=== PATIENT | female | born 1955 | race Caucasian/White ===

== ENCOUNTER 2018-05-07 10:32 | Inpatient (IN) ==
[~2018-05-07 10:32] MED LIST: Aminoglycoside Consult 1 EACH MC ONE
[2018-05-07] MEDS ORDERED: *HR* HYDROmorphone (PF) 1 MG/ML SYRINGE IM ONE (10:39)
--- NOTE | 2018-05-07 10:47 | Emergency Department Note ---
Disposition Clinical Impression: Lumbar radiculopathy Disposition: Admitted As Inpatient Condition: Good Back Pain HPI - General Stated Complaint: back pain Time Seen by Provider: 05/07/18 10:39 Source: EMS Mode of arrival: EMS Limitations: no limitations Nursing Notes Reviewed: Yes Vital Signs Reviewed: Yes - History of Present Illness HPI Narrative: Patient presents to the ED via EMS with the chief complaint of neck and back pain. Patient is coming over from her primary care physician's office. She reports that over the last 3 weeks she has had gradually increasing and worsening diffuse back pain. She has been treated with baclofen for spasms in her neck, which been ongoing for several years. She also has a history of fib romyalgia and so he is depression. She states that "ever since that cold day" about 3 weeks ago. She has been having this worsening back pain. She states that she literally hurts everywhere. She does report that she was incontinent of urine. Associated with the pain. Hurts to bend and move. She denies any fever or chills. She also complains of right arm weakness, but she states this is from her shoulder hurting. She also complains of some intermittent abdominal pain and nausea but no vomiting. Denies any rashes. Does state that her gait has been off. - Related Data Home Medications Medication Instructions Recorded Confirmed Acetaminophen [Tylenol Arthritis] 650 mg PO Q8H PRN 05/07/18 05/07/18 Mirtazapine [Remeron] 15 mg PO HS 05/07/18 05/07/18 Pravastatin Sodium [Pravachol] 40 mg PO HS 05/07/18 05/07/18 RX: Cholecalciferol (D-3) [Vitamin 1,000 unit PO DAILY 05/07/18 05/07/18 D] RX: Lisinopril-HCTZ 20-12.5 1 each PO DAILY 05/07/18 05/07/18 [Prinzide 20-12.5] RX: Pantoprazole Sodium 40 mg PO DAILY 05/07/18 05/07/18 RX: Tizanidine HCl 4 mg PO Q8H PRN 05/07/18 05/07/18 Vitamin B Complex [B Complex] 1 each PO DAILY 05/07/18 05/07/18 glipiZIDE [Glucotrol] 5 mg PO 1200 05/07/18 05/07/18 Allergies Allergy/AdvReac Type Severity Reaction Status Date / Time aspirin Allergy Gastrointestinal Verified 05/13/17 16:28 Upset Ether Allergy See Verified 05/13/17 16:26 Comments NSAIDS (Non-Steroidal Allergy Gastrointestinal Verified 05/13/17 16:28 Anti-Inflamma Upset ondansetron Allergy Hallucinati Verified 05/13/17 16:28 [From Zofran (as ng hydrochloride)] Penicillins [PCN] Allergy Rash Verified 05/13/17 16:26 pioglitazone [From Actos] Allergy Hives Verified 05/13/17 16:27 Review of Systems: As reviewed in the HPI. All other systems reviewed are negative or normal. Past Medical History - Past Medical History Attestation: Yes The following information was validated with the patient. Source: patient Medical history: Reports: diabetes, GERD, hyperlipidemia, hypertension Surgical history: Reports: other (right foot surgeries) - Social History Smoking Status: Never smoker Smokeless Tobacco Status: No Alcohol use: Reports: none Physical Exam CONSTITUTIONAL: [well appearing, alert and in no acute distress] EYES: [EOMI, clear conjunctiva, PERRLA] HENT: [Normocephalic, atraumatic, moist mucus membranes, normal oropharynx] NECK: [normal inspection, full ROM with slight head forward posture, trachea midline, no obvious swelling, positive midline tenderness with associated paraspinous muscle spasm, worse on the right] PULMONARY: [normal lung sounds bilaterally, normal chest rise and fall, no respiratory distress or stridor, no wheezes, no rales, no rhonchi CARDIOVASCULAR: [regular rate, regular rhythm, normal heart sounds, no murmurs, distal extremities are warm and well perfused] GASTROINSTESTINAL: [soft, non-tender, non-rigid, non-distended, no guarding, no rebound, normal bowel sounds] GENITOURINARY/RECTAL: [deferred] NEUROLOGIC: [Alert, oriented x3, normal speech, moves all extremities. RUE - 4/5, LUE 5/5, RLE - 4/5, LLE - 4/5. Normal sensation throughout. patient unable to ambulate on own, does seem unsteady on feet] EXTREMITIES: [No gross deformities, she does have some tenderness along the right clavicle, patient has hyperesthesia MUSCULOSKELETAL: [no gross deformities, atraumatic] SKIN: [No cyanosis, no diaphoresis, normal color, warm, no rash] PSYCHIATRIC: [anxious] Course - Reevaluation(s) Reevaluation #1: MRI shows severe spinal stenosis with mass effect on the cauda equina at L4-L5. Spoke with on-call surgeon, Dr. Bales. Was agreeable with admission hospital and consultation for possible epidural injections versus decompression. Vital Signs Temperature 100.0 F H 05/07/18 10:43 Pulse Rate 104 05/07/18 10:43 Respiratory Rate 20 05/07/18 10:43 Blood Pressure 190/75 05/07/18 10:43 O2 Sat by Pulse Oximetry 100 05/07/18 10:43 Temperature 100.0 F H 05/07/18 11:38 Pulse Rate 104 05/07/18 11:38 Respiratory Rate 20 05/07/18 11:38 Blood Pressure 190/75 05/07/18 11:38 O2 Sat by Pulse Oximetry 100 05/07/18 11:38 Oxygen Delivery Oxygen Delivery Room Air Back Pain/Injury - Medical Records Medical records reviewed: Yes I reviewed the patient's medical records. - Lab Data Lab results reviewed: Yes I reviewed the patient's lab results. Result diagrams: 05/07/18 11:15 05/07/18 17:57 Lab Results 05/07/18 05/07/18 05/07/18 Range/Units 11:15 11:15 11:15 WBC 15.8 H (4.3-11.1) K/mcL RBC 2.98 L (3.82-4.97) M/mcL Hgb 8.1 L (11.5-15.4) g/dL Hct 24.8 L (35.3-44.9) % MCV 83.2 (83.0-100.0) fL MCH 27.2 L (28.0-33.3) pg MCHC 32.7 (31.6-35.5) g/dL RDW 13.2 (11.5-14.5) % Plt Count 599 H (140-400) K/mcL MPV 9.8 (9.4-12.4) fL Immature Gran % 0.6 (0-4) % Seg Neutrophils % 87.9 % Lymphocytes % 5.5 % Monocytes % 5.8 % Eosinophils % 0.0 % Basophils % 0.2 % Neutrophils # 13.9 H (1.6-8.9) K/mcL Lymphocytes # 0.9 (0.6-4.6) K/mcL Monocytes # 0.9 (0.0-1.3) K/mcL Eosinophils # 0.0 (0.0-0.6) K/mcL Basophils # 0.0 (0.0-0.2) K/mcL ESR >= 130 H (0-15) mm/hr Sodium 130 L (136-145) mEq/L Potassium 3.7 (3.5-5.1) mEq/L Chloride 95 L (98-107) mEq/L Carbon Dioxide 22 L (23-29) mEq/L BUN 22 (8-23) mg/dL Creatinine 0.77 (0.60-1.20) mg/dL Est GFR ( Amer) > 60 (> 60) Est GFR (Non-Af Amer) > 60 (> 60) BUN/Creatinine Ratio 29 H (6-26) Glucose 311 H (70-105) mg/dL Calculated Osmolality 285 (280-300) Calcium 9.4 (8.6-10.3) mg/dL C-Reactive Protein (Less than 10) mg/L Urine Color (Yellow) Urine Clarity (Clear) Urine pH (5.0-8.0) pH Units Ur Specific [place] (1.010-1.025) Urine Protein (Neg-Trace) mg/dL Urine Glucose (UA) (Normal) mg/dL Urine Ketones (Negative) mg/dL Urine Blood (Negative) Urine Nitrite (Negative) Urine Bilirubin (Negative) Urine Urobilinogen (Normal) mg/dL Ur Leukocyte Esterase (Negative) Urine Microscopic RBC (0-3) per hpf Urine Microscopic WBC (0-3) per hpf Ur Squamous Epith Cells (None-Few) per lpf Urine Bacteria (None-Few) per hpf Hyaline Casts (None-Few) per lpf Ur Culture Indicated? (NO) 05/07/18 05/07/18 Range/Units 11:15 11:34 WBC (4.3-11.1) K/mcL RBC (3.82-4.97) M/mcL Hgb (11.5-15.4) g/dL Hct (35.3-44.9) % MCV (83.0-100.0) fL MCH (28.0-33.3) pg MCHC (31.6-35.5) g/dL RDW (11.5-14.5) % Plt Count (140-400) K/mcL MPV (9.4-12.4) fL Immature Gran % (0-4) % Seg Neutrophils % % Lymphocytes % % Monocytes % % Eosinophils % % Basophils % % Neutrophils # (1.6-8.9) K/mcL Lymphocytes # (0.6-4.6) K/mcL Monocytes # (0.0-1.3) K/mcL Eosinophils # (0.0-0.6) K/mcL Basophils # (0.0-0.2) K/mcL ESR (0-15) mm/hr Sodium (136-145) mEq/L Potassium (3.5-5.1) mEq/L Chloride (98-107) mEq/L Carbon Dioxide (23-29) mEq/L BUN (8-23) mg/dL Creatinine (0.60-1.20) mg/dL Est GFR ( Amer) (> 60) Est GFR (Non-Af Amer) (> 60) BUN/Creatinine Ratio (6-26) Glucose (70-105) mg/dL Calculated Osmolality (280-300) Calcium (8.6-10.3) mg/dL C-Reactive Protein 172 H (Less than 10) mg/L Urine Color Yellow (Yellow) Urine Clarity Clear (Clear) Urine pH 6.0 (5.0-8.0) pH Units Ur Specific [place] 1.030 H (1.010-1.025) Urine Protein 30 H (Neg-Trace) mg/dL Urine Glucose (UA) 500 H (Normal) mg/dL Urine Ketones 40 H (Negative) mg/dL Urine Blood Negative (Negative) Urine Nitrite Negative (Negative) Urine Bilirubin Negative (Negative) Urine Urobilinogen Normal (Normal) mg/dL Ur Leukocyte Esterase Negative (Negative) Urine Microscopic RBC 0-3 (0-3) per hpf Urine Microscopic WBC 5-15 H (0-3) per hpf Ur Squamous Epith Cells Many H (None-Few) per lpf Urine Bacteria None Seen (None-Few) per hpf Hyaline Casts None Seen (None-Few) per lpf Ur Culture Indicated? NO (NO) - Radiology Data Radiology results reviewed: Yes I reviewed the patient's radiology results. - EKG Data EKG attestation: Yes I reviewed and interpreted this EKG. EKG results narrative: Sinus tach, rate 102, normal axis, no ischemic change
--- NOTE | 2018-05-07 10:48 | Emergency Department Note ---
Disposition Clinical Impression: Lumbar radiculopathy Disposition: Admitted As Inpatient Condition: Good General Adult HPI - General Stated complaint: back pain Time Seen by Provider: 05/07/18 10:39 Nursing Notes Reviewed: Yes Vital Signs Reviewed: Yes - Related Data Home Medications Medication Instructions Recorded Confirmed Acetaminophen [Tylenol Arthritis] 650 mg PO Q8H PRN 05/07/18 05/07/18 Mirtazapine [Remeron] 15 mg PO HS 05/07/18 05/07/18 Pravastatin Sodium [Pravachol] 40 mg PO HS 05/07/18 05/07/18 RX: Cholecalciferol (D-3) [Vitamin 1,000 unit PO DAILY 05/07/18 05/07/18 D] RX: Lisinopril-HCTZ 20-12.5 1 each PO DAILY 05/07/18 05/07/18 [Prinzide 20-12.5] RX: Pantoprazole Sodium 40 mg PO DAILY 05/07/18 05/07/18 RX: Tizanidine HCl 4 mg PO Q8H PRN 05/07/18 05/07/18 Vitamin B Complex [B Complex] 1 each PO DAILY 05/07/18 05/07/18 glipiZIDE [Glucotrol] 5 mg PO 1200 05/07/18 05/07/18 Allergies Allergy/AdvReac Type Severity Reaction Status Date / Time aspirin Allergy Gastrointestinal Verified 05/13/17 16:28 Upset Ether Allergy See Verified 05/13/17 16:26 Comments NSAIDS (Non-Steroidal Allergy Gastrointestinal Verified 05/13/17 16:28 Anti-Inflamma Upset ondansetron Allergy Hallucinati Verified 05/13/17 16:28 [From Zofran (as ng hydrochloride)] Penicillins [PCN] Allergy Rash Verified 05/13/17 16:26 pioglitazone [From Actos] Allergy Hives Verified 05/13/17 16:27 Past Medical History - Past Medical History Medical history: Reports: diabetes, GERD, hyperlipidemia, hypertension Surgical history: Reports: other (right foot surgeries) - Social History Smoking Status: Never smoker Smokeless Tobacco Status: No Alcohol use: Reports: none Course Vital Signs Temperature 100.0 F H 05/07/18 10:43 Pulse Rate 104 05/07/18 10:43 Respiratory Rate 20 05/07/18 10:43 Blood Pressure 190/75 05/07/18 10:43 O2 Sat by Pulse Oximetry 100 05/07/18 10:43 Temperature 98.9 F 05/07/18 20:35 Pulse Rate 104 05/07/18 20:35 Respiratory Rate 22 05/07/18 20:35 Blood Pressure 160/73 05/07/18 20:35 O2 Sat by Pulse Oximetry 98 05/07/18 20:35 Oxygen Delivery Oxygen Delivery Room Air Medical Decision Making - [facility] Narrative Medical decision making narrative: Thoracic Spine MRI 05/07/18 00:00 IMPRESSION: Small to moderate broad-based right paracentral disc protrusion at T10-11. No cord compression or stenosis is identified. No evidence of acute fracture or abnormal enhancement within the thoracic spine. D/ / 05/07/2018 14:30:47 Pepe Giron MD / wilman Interpreting Provider: Pepe Giron MD Lumbar Spine MRI 05/07/18 10:40 IMPRESSION: Severe spinal canal stenosis at L4-5 with mass effect on the cauda equina. This is secondary to grade 1 anterolisthesis, facet degenerative changes, and disc osteophyte complex. There is endplate edema at this level, likely degenerative in nature with associated enhancement. Clinical correlation with symptoms of cauda equina syndrome is recommended. Multiple levels of endplate edema throughout the lumbar spine, without evidence of endplate destruction, or fluid signal within the disc space. There is associated enhancement. These are favored to represent degenerative edema enhancement. Clinical correlation with less likely possibility of early discitis or osteomyelitis should be considered. Diffusely T1 hypointense marrow signal. Differential includes marrow involving or marrow replacing processes. D/ / 05/07/2018 14:27:34 Steffen Roman MD / wilman Interpreting Provider: Steffen Roman MD Head CT 05/07/18 10:41 IMPRESSION: No acute intracranial abnormality. D/ / Mark Rodriguez MD / Mark Rodriguez MD Interpreting Provider: Mark Rodriguez MD Chest X-Ray 02/25/19 10:47 IMPRESSION: 1. No active pulmonary disease. D/ / Kurt Gurrola MD / Kurt Gurrola MD Interpreting Provider: Kurt Gurrola MD 1445 hrs.: After the results of or MR. We spoke with Dr. Bales who is on for spine and will admit with them consulting. - Lab Data Result diagrams: 05/07/18 11:15 05/07/18 17:57 Lab Results 05/07/18 05/07/18 05/07/18 Range/Units 11:15 11:15 11:15 WBC 15.8 H (4.3-11.1) K/mcL RBC 2.98 L (3.82-4.97) M/mcL Hgb 8.1 L (11.5-15.4) g/dL Hct 24.8 L (35.3-44.9) % MCV 83.2 (83.0-100.0) fL MCH 27.2 L (28.0-33.3) pg MCHC 32.7 (31.6-35.5) g/dL RDW 13.2 (11.5-14.5) % Plt Count 599 H (140-400) K/mcL MPV 9.8 (9.4-12.4) fL Immature Gran % 0.6 (0-4) % Seg Neutrophils % 87.9 % Lymphocytes % 5.5 % Monocytes % 5.8 % Eosinophils % 0.0 % Basophils % 0.2 % Neutrophils # 13.9 H (1.6-8.9) K/mcL Lymphocytes # 0.9 (0.6-4.6) K/mcL Monocytes # 0.9 (0.0-1.3) K/mcL Eosinophils # 0.0 (0.0-0.6) K/mcL Basophils # 0.0 (0.0-0.2) K/mcL ESR >= 130 H (0-15) mm/hr Sodium 130 L (136-145) mEq/L Potassium 3.7 (3.5-5.1) mEq/L Chloride 95 L (98-107) mEq/L Carbon Dioxide 22 L (23-29) mEq/L BUN 22 (8-23) mg/dL Creatinine 0.77 (0.60-1.20) mg/dL Est GFR ( Amer) > 60 (> 60) Est GFR (Non-Af Amer) > 60 (> 60) BUN/Creatinine Ratio 29 H (6-26) Glucose 311 H (70-105) mg/dL Calculated Osmolality 285 (280-300) Calcium 9.4 (8.6-10.3) mg/dL C-Reactive Protein (Less than 10) mg/L Urine Color (Yellow) Urine Clarity (Clear) Urine pH (5.0-8.0) pH Units Ur Specific [place] (1.010-1.025) Urine Protein (Neg-Trace) mg/dL Urine Glucose (UA) (Normal) mg/dL Urine Ketones (Negative) mg/dL Urine Blood (Negative) Urine Nitrite (Negative) Urine Bilirubin (Negative) Urine Urobilinogen (Normal) mg/dL Ur Leukocyte Esterase (Negative) Urine Microscopic RBC (0-3) per hpf Urine Microscopic WBC (0-3) per hpf Ur Squamous Epith Cells (None-Few) per lpf Urine Bacteria (None-Few) per hpf Hyaline Casts (None-Few) per lpf Ur Culture Indicated? (NO) 05/07/18 05/07/18 Range/Units 11:15 11:34 WBC (4.3-11.1) K/mcL RBC (3.82-4.97) M/mcL Hgb (11.5-15.4) g/dL Hct (35.3-44.9) % MCV (83.0-100.0) fL MCH (28.0-33.3) pg MCHC (31.6-35.5) g/dL RDW (11.5-14.5) % Plt Count (140-400) K/mcL MPV (9.4-12.4) fL Immature Gran % (0-4) % Seg Neutrophils % % Lymphocytes % % Monocytes % % Eosinophils % % Basophils % % Neutrophils # (1.6-8.9) K/mcL Lymphocytes # (0.6-4.6) K/mcL Monocytes # (0.0-1.3) K/mcL Eosinophils # (0.0-0.6) K/mcL Basophils # (0.0-0.2) K/mcL ESR (0-15) mm/hr Sodium (136-145) mEq/L Potassium (3.5-5.1) mEq/L Chloride (98-107) mEq/L Carbon Dioxide (23-29) mEq/L BUN (8-23) mg/dL Creatinine (0.60-1.20) mg/dL Est GFR ( Amer) (> 60) Est GFR (Non-Af Amer) (> 60) BUN/Creatinine Ratio (6-26) Glucose (70-105) mg/dL Calculated Osmolality (280-300) Calcium (8.6-10.3) mg/dL C-Reactive Protein 172 H (Less than 10) mg/L Urine Color Yellow (Yellow) Urine Clarity Clear (Clear) Urine pH 6.0 (5.0-8.0) pH Units Ur Specific [place] 1.030 H (1.010-1.025) Urine Protein 30 H (Neg-Trace) mg/dL Urine Glucose (UA) 500 H (Normal) mg/dL Urine Ketones 40 H (Negative) mg/dL Urine Blood Negative (Negative) Urine Nitrite Negative (Negative) Urine Bilirubin Negative (Negative) Urine Urobilinogen Normal (Normal) mg/dL Ur Leukocyte Esterase Negative (Negative) Urine Microscopic RBC 0-3 (0-3) per hpf Urine Microscopic WBC 5-15 H (0-3) per hpf Ur Squamous Epith Cells Many H (None-Few) per lpf Urine Bacteria None Seen (None-Few) per hpf Hyaline Casts None Seen (None-Few) per lpf Ur Culture Indicated? NO (NO) Attestation Statement - Attestation Attestation: This documentation is done with the assistance of Dragon dictation. Despite efforts made to ensure accuracy, there may be inaccuracies in insulation extruder operator or spelling and typographical errors. I examined this patient and my medical decision-making was reviewed with the Resident Physician. I agree with the documented findings, disposition and treatment plan as described except to the extent set forth below. Patient seen and evaluated by Dr. Guerrero and myself, agree with his evaluation and management plan, I supervised the care the patient's stay. Patient presents from primary care office due to spasms and in her shoulders and neck pain. She has a history of fibromyalgia. Despite on for couple weeks. They have been managing him conservatively but she is not getting better. She also states she had some urinary incontinence. She does have some weakness in her arms and she aches all over. Were not seeping do an MRI of her spine check labs and reassess. She is in agreement with plan.
[2018-05-07 11:41] LABS: Bilirubin,Urine Negative (Negative); Blood,Urine Negative (Negative); Clarity,Urine Clear (Clear); Color,Urine Yellow (Yellow); Glucose,Urine (UA) 500 mg/dL (Normal); Ketones,Urine 40 mg/dL (Negative); Leukocyte Esterase,Urine Negative (Negative); Nitrite,Urine Negative (Negative); Protein,Urine 30 mg/dL (Neg-Trace); Urobilinogen,Urine Normal (Normal)
[2018-05-07 11:44] LABS: Basophils % 0.2 %; Hematocrit 24.8 % (35.3-44.9); Hemoglobin 8.1 g/dL (11.5-15.4); Immature Granulocytes % 0.6 % (0-4); Lymphocytes # 0.9 K/mcL (0.6-4.6); Lymphocytes % 5.5 %; Mean Corpuscular HGB Conc 32.7 g/dL (31.6-35.5); Mean Corpuscular Hemoglobin 27.2 pg (28.0-33.3); Mean Corpuscular Volume 83.2 fL (83.0-100.0); Mean Platelet Volume 9.8 fL (9.4-12.4); Monocytes # 0.9 K/mcL (0.0-1.3); Monocytes % 5.8 %; Neutrophils # 13.9 K/mcL (1.6-8.9); Platelet Count 599 K/mcL (140-400); Red Blood Count 2.98 M/mcL (3.82-4.97); Red Cell Distribution Width 13.2 % (11.5-14.5); Segmented Neutrophils % 87.9 %
[2018-05-07 11:45] LABS: Bacteria,Urine None Seen per hpf (None-Few); Hyaline Casts,Urine None Seen per lpf (None-Few); RBC,Urine 0-3 per hpf (0-3); Squamous Epithelial Cell,Urine Many per lpf (None-Few)
[2018-05-07] MEDS ORDERED: Gadolinium Contrast Agent (WT Based) IV PRN (11:58)
[2018-05-07 12:03] LABS: BUN/Creatinine Ratio 29 (6-26); Blood Urea Nitrogen 22 mg/dL (8-23); Calcium 9.4 mg/dL (8.6-10.3); Carbon Dioxide 22 mEq/L (23-29); Chloride 95 mEq/L (98-107); Glucose 311 mg/dL (70-105); Osmolality,Calculated 285 (280-300); Potassium 3.7 mEq/L (3.5-5.1); Sodium 130 mEq/L (136-145); eGFR For Non-African Americans > 60 (> 60)
[2018-05-07] MEDS ORDERED: *HR* HYDROmorphone (PF) 1 MG/ML SYRINGE IVP ONE (14:48)
[2018-05-07 16:20] LABS: ABG Base Excess 1 mEq/L (-2 to 3); ABG HCO3 23 mEq/L (21-27); ABG Oxygen Saturation 99 % (95-98); ABG PCO2 27 mmHg (35-45); ABG PH 7.54 pH Units (7.32-7.45); ABG PO2 97 mmHg (85-104); ABG TCO2 24 mEq/L (20-26)
[2018-05-07] MEDS ORDERED: Naloxone 0.4 MG/ML INJ IVP PRN ×2 (16:31→17:41)
--- NOTE | 2018-05-07 16:31 | Internal Med History&Physical ---
<Fiona Ma - Last Filed: 05/07/18 17:21> Date of Encounter: 05/07/18 Internal Medicine - H&P: HPI History of present illness: Ms. Sims is a 63 year old female Internal Medicine - H&P: Meds Acetaminophen [Tylenol Arthritis] 650 mg PO Q8H PRN 05/07/18 [History] Cholecalciferol (D-3) [Vitamin D] 1,000 unit PO DAILY 05/07/18 [History] Lisinopril-HCTZ 20-12.5 [Prinzide 20-12.5] 1 each PO DAILY 05/07/18 [History] Mirtazapine [Remeron] 15 mg PO HS 05/07/18 [History] Pantoprazole Sodium 40 mg PO DAILY 05/07/18 [History] Pravastatin Sodium [Pravachol] 40 mg PO HS 05/07/18 [History] Tizanidine HCl 4 mg PO Q8H PRN 05/07/18 [History] Vitamin B Complex [B Complex] 1 each PO DAILY 05/07/18 [History] glipiZIDE [Glucotrol] 5 mg PO 1200 05/07/18 [History] Allergy/AdvReac Type Severity Reaction Status Date / Time aspirin Allergy Gastrointestinal Verified 05/13/17 16:28 Upset Ether Allergy See Verified 05/13/17 16:26 Comments NSAIDS (Non-Steroidal Allergy Gastrointestinal Verified 05/13/17 16:28 Anti-Inflamma Upset ondansetron Allergy Hallucinati Verified 05/13/17 16:28 [From Zofran (as ng hydrochloride)] Penicillins [PCN] Allergy Rash Verified 05/13/17 16:26 pioglitazone [From Actos] Allergy Hives Verified 05/13/17 16:27 All Systems PM: A 10-system review of systems was performed and is negative for pertinent findings except as documented above in the HPI. - Constitutional Vitals: Temp Pulse Resp BP Pulse Ox 100.0 F H 100 15 153/112 100 05/07/18 11:38 05/07/18 16:29 05/07/18 16:29 05/07/18 16:29 05/07/18 11:38 Internal Med - H&P Results - Labs CBC & Chem 7: 05/07/18 11:15 05/07/18 11:15 Labs: Short CBC 05/07/18 Range/Units 11:15 WBC 15.8 H (4.3-11.1) K/mcL Hgb 8.1 L (11.5-15.4) g/dL Hct 24.8 L (35.3-44.9) % Plt Count 599 H (140-400) K/mcL Neutrophils # 13.9 H (1.6-8.9) K/mcL BMP 05/07/18 11:15 Sodium 130 L Potassium 3.7 Chloride 95 L Carbon Dioxide 22 L BUN 22 Creatinine 0.77 Glucose 311 H Calcium 9.4 Urine 05/07/18 Range/Units 11:34 Urine Color Yellow (Yellow) Urine Clarity Clear (Clear) Urine pH 6.0 (5.0-8.0) pH Units Ur Specific [place] 1.030 H (1.010-1.025) Urine Protein 30 H (Neg-Trace) mg/dL Urine Glucose (UA) 500 H (Normal) mg/dL - ABG Interpretation ABG results: 05/07/18 16:08 ABG pH 7.54 H ABG pCO2 27 L ABG pO2 97 ABG HCO3 23 ABG Total CO2 24 ABG O2 Saturation 99 H ABG Base Excess 1 - Impressions ITS Impressions Thoracic Spine MRI 05/07/18 00:00 IMPRESSION: Small to moderate broad-based right paracentral disc protrusion at T10-11. No cord compression or stenosis is identified. No evidence of acute fracture or abnormal enhancement within the thoracic spine. D/ / 05/07/2018 14:30:47 Pepe Giron MD / [facility] Interpreting Provider: Pepe Giron MD Lumbar Spine MRI 05/07/18 10:40 IMPRESSION: Severe spinal canal stenosis at L4-5 with mass effect on the cauda equina. This is secondary to grade 1 anterolisthesis, facet degenerative changes, and disc osteophyte complex. There is endplate edema at this level, likely degenerative in nature with associated enhancement. Clinical correlation with symptoms of cauda equina syndrome is recommended. Multiple levels of endplate edema throughout the lumbar spine, without evidence of endplate destruction, or fluid signal within the disc space. There is associated enhancement. These are favored to represent degenerative edema enhancement. Clinical correlation with less likely possibility of early discitis or osteomyelitis should be considered. Diffusely T1 hypointense marrow signal. Differential includes marrow involving or marrow replacing processes. D/ / 05/07/2018 14:27:34 Steffen Roman MD / [facility] Interpreting Provider: Steffen Roman MD Cervical Spine MRI 05/07/18 10:41 IMPRESSION: Partially imaged edema and inflammation involving the right sternoclavicular junction. Differential includes septic arthritis, osteomyelitis, or neoplastic process. This is partially imaged on this examination. Recommend further evaluation with CT chest with contrast. Multilevel degenerative changes of the cervical spine with varying degrees of spinal canal stenosis and neural foraminal stenosis, as detailed above. No evidence of abnormal T2 signal within the spinal cord. No evidence of discitis or osteomyelitis within the cervical spine. No evidence of epidural abscess. D/ / 05/07/2018 14:25:02 Steffen Roman MD / [facility] Interpreting Provider: Steffen Roman MD Head CT 05/07/18 10:41 IMPRESSION: No acute intracranial abnormality. D/ / Mark Rodriguez MD / Mark Rodriguez MD Interpreting Provider: Mark Rodriguez MD Chest X-Ray 05/07/18 10:47 IMPRESSION: 1. No active pulmonary disease. D/ / Kurt Gurrola MD / Kurt Gurrola MD Interpreting Provider: Kurt Gurrola MD - Time Spent With Patient Total time spent is greater than 50% in coordination of care (as documented) at patient's floor/unit and/or counseling patient: - Attending Attestation I examined this patient and my medical decision-making was reviewed with the Resident Physician Adalid. I agree with the documented findings, disposition and treatment plan as described except to the extent set forth below. Ms Sims has med hx HTN, HLD and DM, IBS and Fibro. She ahs has a couple weeks of neck pain, right collar bone pain, low back pain, leg numbness/tingling, weakness and difficulty walking. Sent from PCP office for eval today. ED identified severe Lumbar spinal stenosis with mass effect on cauda equina. They contacted Dr Bales whom will see pt for epidural injection vs decompression. Imaging also revealed possible discitis/osteomyelitis in lumbar spine and septic arthritis vs osteo vs malignancy at right sternoclavicular junction. On review of labs / VS- she meets for sepsis criteria and our team asked ED to obtain bl cxs and lactate. She has elevated glucose, anion gap, ketones and glucose in her urine and we asked ed to obtain BHB and blood gas to assess for need for insulin drip prior to being sent to floor. She has received vanc + cipro for possible infection. awake, pleasant, very talkative, pain with any movement though comfortable when sitting still. + low back pain, pain radiating down legs worse on left, + numbness tingling in legs at times though none now. + right clavicular pain and swelling and earlier in week she thinks LAD under jaw on right, now resolved. denies fevers, chills, n/v. She denies anemia hx. no melena, hematochezia, vagianl bleeding. Has history of nose injury and states her nose"bleeds every day", but has never been told bloo dcount low. + fatigue, no sob or presyncope. In regards to blood sugars, she does not check at home, has been drinking soda recently in large amounts bc it's easier than having to walk to the kitchen to get water. + polydipsia, polyuria in last three weeks. Feeling dehydrated due to this. Denies IVDA, dental work/cavity/abscess, no history of endocarditis or bacteremia. No spinal surgeries/injections. No recent steroids. gen- alert, awake,appears stated age eyes- pupils equal round , + conjunctival pallor cv- reg rate and rhythm, normal s1,s2, no murmurs appreciated, no le edema, no jvd lungs- ctabl, no wheezing, rhonchi or crackles abd- soft, non tender, non distended, + bs neuro- AAOx3, CN grossly intact, no focal deficits when testing sensation to li ght touch in all exts. bl le strength 4/5 without focal deficit, + straight leg raise Severe Spinal stenosis L4-L5 with mass effect on cauda equina cannot rule out early discitis vs osteo -Dr Bales aware, awaiting eval, blcxs sent, cont vanc + cipro (given pcn allergy), ID consulted -prn pain control -neuro checks Right Sternoclavicular junction edema/inflammation with possible septic joint/osteo/neoplasm- check ct chest with contrast, ID as above, abx as above Sepsis criteria met with wbc, HR and source as aboveCXR neg, UA neg, bl cxs sent -vanc and cipro -lactate pending -IVFs cautious given hyponatremia, serial na checks and fluids as appropriate Anemia- unclear if acute or acute on chronic-anemia work up, monitor Hyponatremia- appears acute- urine studies/osms, receiving 1L bolus for sepsis, check Na after and further fluids pending that result, team will sign out to night team serial kathya, neuro checks and fluid management pending results Anion gap 13- abg with resp alkalosis, lactate pending Hyperglycemia with DM- not DKA, perhaps HHNK- IVFs, SSI, cont to monitor HTN- give home meds now and cont ot monitor as bp high throughout ed stay vte ppx scds further diagnosis and plan as per resident <Ling Cordoba R - Last Filed: 05/07/18 17:59> Date of Encounter: 05/07/18 Time of Encounter: 16:31 Internal Medicine - H&P: HPI Admitted From: Home History of present illness: Ms. Sims is a 63 year old female with past medical history of diabetes, hypertension, GERD, irritable bowel syndrome presents to the emergency dep artment with 3 weeks of worsening back and neck pain. She states that she has chronic low back pain but over the past 3 weeks this back pain is worsened. She had an episode of urinary incontinence that occurred over a week ago when she could not get to the bathroom due to the pain in her back. She has also been feeling hot at home but has not taken her temperature she does not own a thermometer. She has been trying home remedies such as topical oils and Tylenol which have not touched pain. She feels she is dehydrated and she has been having lower abdominal pain during this illness as well. She denies nausea and vomiting but states that eating certain foods causes her to have loose stools due to her irritable bowel syndrome. She states that she finally was able to make an appointment with her primary care physician today and was sent here after she mentioned that she had been incontinent has primary care physician was worried about cauda equina syndrome. Patient denies history of tobacco use, alcohol, intravenous drugs. She does not use insulin for her diabetes and takes all of her medications as prescribed. Pt admits to a history of daily nosebleeds and right sided LAD that occurred appx a week ago but has resolved. She denies Hx of recent tooth infection, cellulitis, and procedures. MRI obtained in the emergency department shows a possible discitis vs osteomyelitis of the lumbar spine and a possible septic joint versus osteomyelitis versus metastatic lesion of the patient's right sternoclavicular joint. The patient meets sepsis criteria and will be given a fluid bolus as well as started on vancomycin and ciprofloxacin due to the patient's penicillin allergy. Blood cultures, lactic acid, ABG are pending at this time. Past Med Surg Social Fam HX - Past Medical History Attestation: Yes The following information was validated with the patient. Medical history: diabetes, GERD, hyperlipidemia, hypertension Psychiatric history: no psych history - Past Surgical History Surgical History: other (right foot surgeries) - Social History Smoking Status: Never smoker Smokeless Tobacco Status: No Alcohol use: none Drug use: none - Family History Father Hx Family Endocrine Disorder: Yes Mother Hx Family Endocrine Disorder: Yes All Systems PM: A 10-system review of systems was performed and is negative for pertinent findings except as documented above in the HPI. - Constitutional Constitutional: fatigue, fever(s) (subjective), weakness - EENT Eyes: no change in vision, no loss of vision - Cardiovascular Cardiovascular ROS IM: no chest pain, no dyspnea, no edema - Respiratory Respiratory: no cough, no dyspnea, no hemoptysis, no wheezing - Gastrointestinal Gastrointestinal: abdominal pain, loose stools, no constipation, no melena, no nausea, no vomiting - Genitourinary Genitourinary: urinary incontinence, no difficulty urinating, no difficulty voiding, no dysuria, no hematuria - Musculoskeletal Musculoskeletal ROS IM: back pain, joint swelling, muscle weakness, neck pain, tingling (left foot) - Integumentary Integumentary IM: no erythema, no new lesions, no rash - Neurological Neurological ROS: paresthesias, tingling, no confusion, no dizziness, no frequent falls, no vertigo - Psychiatric Psychiatric: no anxiety, no auditory hallucinations, no confusion, no depression, no visual hallucinations - Constitutional Vitals: Temp Pulse Resp BP Pulse Ox 100.0 F H 100 15 153/112 100 05/07/18 11:38 05/07/18 16:29 05/07/18 16:29 05/07/18 16:29 05/07/18 11:38 General appearance: Present: cooperative, mild distress, A&O X 3, pleasant, answers questions appropriately Exam: Constitutional - alert, in mild distress. HEENT - PERRL. EOMI. Mucus membranes dry. Neck - No palpable LAD. Tender to palpation of c-spine, more on the right than left. Full ROM. Chest - Tender to palpation of right side. Right SC joint appears swollen. No visible rashes. Cardio - Tachycardic, regular rhythm. No audible murmurs. Loud heart sounds. Respiratory - Equal breath sounds throughout without wheezing, rhonchi or rales. Abdomen - soft. Tender to palpation of lower abdomen. No palpable masses. No rebound, guarding or rigidity. Back - tender to palpation of T spine and l spine. No step offs. No visible skin changes. Right worse than left. Extremities - No edema noted on extremities. Equal pulses in all 4 extremities. Skin - no visible rashes, ulcers or other lesions. Neuro - a&o x3. Mild LE weakness B/L. Right arm weakness compared to left secondary to pain. No sensory changes. Internal Med - H&P Results - Labs CBC & Chem 7: 05/07/18 11:15 05/07/18 11:15 Labs: Short CBC 05/07/18 Range/Units 11:15 WBC 15.8 H (4.3-11.1) K/mcL Hgb 8.1 L (11.5-15.4) g/dL Hct 24.8 L (35.3-44.9) % Plt Count 599 H (140-400) K/mcL Neutrophils # 13.9 H (1.6-8.9) K/mcL BMP 05/07/18 11:15 Sodium 130 L Potassium 3.7 Chloride 95 L Carbon Dioxide 22 L BUN 22 Creatinine 0.77 Glucose 311 H Calcium 9.4 Urine 05/07/18 Range/Units 11:34 Urine Color Yellow (Yellow) Urine Clarity Clear (Clear) Urine pH 6.0 (5.0-8.0) pH Units Ur Specific [place] 1.030 H (1.010-1.025) Urine Protein 30 H (Neg-Trace) mg/dL Urine Glucose (UA) 500 H (Normal) mg/dL - ABG Interpretation Interpretation: ABG interpreted by me ABG results: 05/07/18 16:08 ABG pH 7.54 H ABG pCO2 27 L ABG pO2 97 ABG HCO3 23 ABG Total CO2 24 ABG O2 Saturation 99 H ABG Base Excess 1 Interpretation: respiratory alkalosis - Impressions ITS Impressions Thoracic Spine MRI 05/07/18 00:00 IMPRESSION: Small to moderate broad-based right paracentral disc protrusion at T10-11. No cord compression or stenosis is identified. No evidence of acute fracture or abnormal enhancement within the thoracic spine. D/ / 05/07/2018 14:30:47 Pepe Giron MD / [facility] Interpreting Provider: Pepe Giron MD Lumbar Spine MRI 05/07/18 10:40 IMPRESSION: Severe spinal canal stenosis at L4-5 with mass effect on the cauda equina. This is secondary to grade 1 anterolisthesis, facet degenerative changes, and disc osteophyte complex. There is endplate edema at this level, likely degenerative in nature with associated enhancement. Clinical correlation with symptoms of cauda equina syndrome is recommended. Multiple levels of endplate edema throughout the lumbar spine, without evidence of endplate destruction, or fluid signal within the disc space. There is associated enhancement. These are favored to represent degenerative edema enhancement. Clinical correlation with less likely possibility of early discitis or osteomyelitis should be considered. Diffusely T1 hypointense marrow signal. Differential includes marrow involving or marrow replacing processes. D/ / 05/07/2018 14:27:34 Steffen Roman MD / [facility] Interpreting Provider: Steffen Roman MD Cervical Spine MRI 05/07/18 10:41 IMPRESSION: Partially imaged edema and inflammation involving the right sternoclavicular junction. Differential includes septic arthritis, osteomyelitis, or neoplastic process. This is partially imaged on this examination. Recommend further evaluation with CT chest with contrast. Multilevel degenerative changes of the cervical spine with varying degrees of spinal canal stenosis and neural foraminal stenosis, as detailed above. No evidence of abnormal T2 signal within the spinal cord. No evidence of discitis or osteomyelitis within the cervical spine. No evidence of epidural abscess. D/ / 05/07/2018 14:25:02 Steffen Roman MD / [facility] Interpreting Provider: Steffen Roman MD Head CT 05/07/18 10:41 IMPRESSION: No acute intracranial abnormality. D/ / Mark Rodriguez MD / Mark Rodriguez MD Interpreting Provider: Mark Rodriguez MD Chest X-Ray 05/07/18 10:47 IMPRESSION: 1. No active pulmonary disease. D/ / Kurt Gurrola MD / Kurt Gurrola MD Interpreting Provider: Kurt Gurrola MD - Assessment and Plan (1) Sepsis Current Visit: Yes Status: Acute Assessment and plan: Pt febrile, tachycardic and with elevated WBC MRI shows possible septic SC joint, possible osteo of SC and l spine 1L fluid bolus, vanc and cipro - will continue to hydrate as sodium levels allow BC pending Lactic wnl ID consulted Dr. Angeles to see in am Qualifiers: Sepsis type: sepsis due to unspecified organism Qualified Code(s): A41.9 - Sepsis, unspecified organism (2) Cauda equina syndrome Current Visit: Yes Status: Suspected Assessment and plan: Partial compression seen on MRI Dr. Angeles to see in am - appreciate recs Pain management Q4H neuro checks (3) Discitis of lumbar region Current Visit: Yes Status: Suspected Assessment and plan: Seen on MRI - partial compression of the cauda equina Pt with LE weakness and one episode of urinary incontinence Dr. Angeles will see in am - appreciate recs Pain control with oral agents, IV if cannot tolerate PO (4) Osteomyelitis Current Visit: Yes Status: Suspected Assessment and plan: Visualized on MRI - right sternoclavicular joint and lumbar spine Right SC joint inflammation on exam with tenderness to palpation L spine tenderness to palpation Abx as above ID consulted Dr. Angeles consulted and will see in am Qualifiers: Osteomyelitis type: unspecified type Osteomyelitis location: unspecified site Qualified Code(s): M86.9 - Osteomyelitis, unspecified (5) Septic joint Current Visit: Yes Status: Suspected Assessment and plan: Visualized on MRI - right sternoclavicular joint Right SC joint inflammation on exam with tenderness to palpation Abx as above ID consulted Qualifiers: Septic arthritis location: shoulder Septic arthritis organism: due to unspecified organism Laterality: right Qualified Code(s): M00.9 - Pyogenic arthritis, unspecified (6) Diabetes mellitus Current Visit: Yes Status: Acute Qualifiers: Diabetes mellitus type: type 2 Diabetes mellitus fpc insulin use: without fpc use Diabetes mellitus complication status: with unspecified complications Qualified Code(s): E11.8 - Type 2 diabetes mellitus with unspecified complications (7) Hyponatremia Current Visit: Yes Status: Acute Assessment and plan: New onset hyponatremia of 130 Partially correctable with BG Will bolus 1L with normal saline and recheck Q4 neuro and sodium checks Will obtain urine lytes (8) Anemia Current Visit: Yes Status: Acute Assessment and plan: H&H 8.124.8 No Hx of anemia Denies hematuria, hematochezia, and hemetemesis Reports daily nose bleeds Will obtain iron panel, ferritin, B12 and folate along with stool guiac Cont to monitor Qualifiers: Anemia type: unspecified type Qualified Code(s): D64.9 - Anemia, unspecified (9) Hypertension Current Visit: Yes Status: Acute Assessment and plan: Hypertensive in ED Likely secondary to pain Cont home medications and pain control Qualifiers: Hypertension type: unspecified Qualified Code(s): I10 - Essential (primary) hypertension (10) DVT prophylaxis Current Visit: Yes Status: Acute Assessment and plan: EPCDs due to anemia - Time Spent With Patient Total time spent is greater than 50% in coordination of care (as documented) at patient's floor/unit and/or counseling patient:
[2018-05-07] MEDS ORDERED: 0.9 % Sodium Chloride 1,000 ML IVC ONE (16:32)
[2018-05-07] MEDS ORDERED: D5% in Water 1,000 ML IVC PRN (16:39)
[2018-05-07] MEDS ORDERED: Dextrose Gel 15 GM/37.5 ML TUBE PO PRN ×2 (16:39)
[2018-05-07] MEDS ORDERED: *HR* Dextrose 50 % in Water (Syg) 50 ML SYRINGE IVP PRN (16:39)
[2018-05-07] MEDS ORDERED: Dextrose 4 GM Chewable Tablets PO PRN ×2 (16:39)
[2018-05-07] MEDS ORDERED: 0.9 % Sodium Chloride 2,000 ML IVC SCH (16:45)
[2018-05-07] MEDS ORDERED: Vancomycin (wt based) 1,000 MG VIAL IVPB SCH (17:00)
[2018-05-07] MEDS ORDERED: Isovue-370 500 ML BOTTLE IVP ONE (17:37)
[2018-05-07] MEDS ORDERED: OXYCODONE Oral CONC 10 MG/0.5 ML ORAL.SYG SL PRN (17:41)
[2018-05-07] MEDS ORDERED: *HR* OxyCODONE Immed Rel 5 MG TABLET PO PRN (17:41)
[2018-05-07] MEDS ORDERED: *HR* HYDROcodone/Acet 5/325 mg TABLET PO PRN (17:41)
[2018-05-07] MEDS ORDERED: Acetaminophen 325 MG TABLET PO PRN (17:43)
[2018-05-07] MEDS: Lisinopril-HCTZ 20-12.5mg TABLET PO SCH (18:45)
[2018-05-07] MEDS: Insulin LISPRO 300 UNITS/3 ML VIAL SQ SCH (19:34)
[2018-05-07] MEDS: Mirtazapine 15 MG TABLET PO SCH (20:56)
[2018-05-07] MEDS: tiZANidine 4 MG TABLET PO PRN (22:57)
[2018-05-08] MEDS ORDERED: 0.9 % Sodium Chloride 1,000 ML IVC SCH (00:15)
[2018-05-08 03:11] LABS: Basophils % 0.2 %; Eosinophils # 0.1 K/mcL (0.0-0.6); Eosinophils % 0.4 %; Hemoglobin 7.1 g/dL (11.5-15.4); Immature Granulocytes % 0.7 % (0-4); Lymphocytes # 1.5 K/mcL (0.6-4.6); Mean Corpuscular HGB Conc 32.3 g/dL (31.6-35.5); Mean Corpuscular Hemoglobin 27.2 pg (28.0-33.3); Mean Corpuscular Volume 84.3 fL (83.0-100.0); Mean Platelet Volume 9.8 fL (9.4-12.4); Monocytes # 1.1 K/mcL (0.0-1.3); Monocytes % 9.2 %; Neutrophils # 9.5 K/mcL (1.6-8.9); Platelet Count 491 K/mcL (140-400); Red Blood Count 2.61 M/mcL (3.82-4.97); Red Cell Distribution Width 13.3 % (11.5-14.5); Segmented Neutrophils % 77.5 %
[2018-05-08 03:30] LABS: BUN/Creatinine Ratio 19 (6-26); Blood Urea Nitrogen 13 mg/dL (8-23); Calcium 8.5 mg/dL (8.6-10.3); Carbon Dioxide 25 mEq/L (23-29); Chloride 97 mEq/L (98-107); Glucose 233 mg/dL (70-105); Magnesium 1.3 mg/dL (1.6-2.6); Osmolality,Calculated 278 (280-300); Phosphorous 2.9 mg/dL (2.7-4.5); Potassium 3.8 mEq/L (3.5-5.1); Sodium 130 mEq/L (136-145); eGFR For Non-African Americans > 60 (> 60)
[2018-05-08 03:31] LABS: % Iron Saturation 5 % (15-50); Iron 10 mcg/dL (50-170); Transferrin 139 mg/dL (203-362)
[2018-05-08 03:49] LABS: Ferritin 716 ng/mL (10-120)
[2018-05-08 04:06] LABS: Vitamin B12 > 1500 pg/mL (250-1100)
[2018-05-08 06:31] LABS: Acinetobacter baumannii by PCR Not Detected (Not Detect); Candida albicans by PCR Not Detected (Not Detect); Candida glabrata by PCR Not Detected (Not Detect); Candida krusei by PCR Not Detected (Not Detect); Candida parapsilosis by PCR Not Detected (Not Detect); Candida tropicalis by PCR Not Detected (Not Detect); Enterobacter cloacae Cmplx PCR Not Detected (Not Detect); Enterobacteriaceae by PCR Not Detected (Not Detect); Enterococcus by PCR Not Detected (Not Detect); Escherichia coli by PCR Not Detected (Not Detect); Klebsiella oxytoca by PCR Not Detected (Not Detect); Klebsiella pneumoniae by PCR Not Detected (Not Detect); Proteus by PCR Not Detected (Not Detect); Pseudomonas aeruginosa by PCR Not Detected (Not Detect); Serratia marcescens by PCR Not Detected (Not Detect); Staphylococcus aureus by PCR DETECTED (Not Detect); Staphylococcus by PCR DETECTED (Not Detect); Streptococcus agalactiae(B)PCR Not Detected (Not Detect); Streptococcus by PCR Not Detected (Not Detect); Streptococcus pneumoniae PCR Not Detected (Not Detect); Streptococcus pyogenes (A) PCR Not Detected (Not Detect); blaKPC Carbapenem-Resist Gene Not Detected (Not Detect); vanA/B Vancomycin-Resist Genes Not Detected (Not Detect)
[2018-05-08 07:09] LABS: Sodium, Urine 58.6 mEq/L
[2018-05-08] MEDS: tiZANidine 4 MG TABLET PO PRN ×2 (07:12→16:01)
--- NOTE | 2018-05-08 07:14 | Internal Med Progress Note ---
<AdalidLing R - Last Filed: 05/08/18 16:05> Hospitalist Progress Note - Encounter Date of Encounter: 05/08/18 Time of Encounter: 07:00 - Subjective Interval History: Pt doing well at this time, VS stable. No complaints besides continuing back pain. Overnight pt's H&H dropped and pt is now borderline for a transfusion with hemoglobin of 7.1 - remains asymptomatic. Iron panels suggestive of anemia of chronic disease. Hemoccult pending. CT scan of chest shows a septic SC joint and septic emboli to the lungs - Dr. Duenas recommends switching abx to Cefazolin q8H and consulting IR for drainage of the joint. The joint will be tapped in am. Echo pending for source of septic emboli. Both BCx have returned positive with Gm+ cocci and Staph PCR is also positive. Repeat BCx will be drawn today. Pt severely hypomagnesemic and will replace with IV mag and recheck labs tomorrow. Dr. Angeles has seen the patient and will treat her back pain conservatively with PT and steroid injections. - Exam Vitals: Temp Pulse Resp BP Pulse Ox 98.1 F 99 16 148/78 100 05/08/18 06:17 05/08/18 06:17 05/08/18 06:17 05/08/18 06:17 05/08/18 06:17 Exam: Constitutional - alert, in mild distress. HEENT - PERRL. EOMI. Mucus membranes dry. Neck - No palpable LAD. Tender to palpation of c-spine, more on the right than left. Full ROM. Chest - Tender to palpation of right side. Right SC joint appears swollen. No visible rashes. Cardio - Tachycardic, regular rhythm. No audible murmurs. Loud heart sounds. Respiratory - Equal breath sounds throughout without wheezing, rhonchi or rales. Abdomen - soft. Tender to palpation of lower abdomen. No palpable masses. No rebound, guarding or rigidity. Back - tender to palpation of T spine and l spine. No step offs. No visible skin changes. Right worse than left. Extremities - No edema noted on extremities. Equal pulses in all 4 extremities. Skin - no visible rashes, ulcers or other lesions. Neuro - a&o x3. Mild LE weakness B/L. Right arm weakness compared to left secondary to pain. No sensory changes. - Assessment and Plan (1) Sepsis Current Visit: Yes Status: Acute Assessment and Plan: Pt febrile, tachycardic and with elevated WBC MRI shows possible septic SC joint, possible osteo of SC and l spine 1L fluid bolus, vanc and cipro - will continue to hydrate as sodium levels allow BC 04/14 positive for gm+ cocci - repeats drawn 05/[address] chest shows septic SC joint with likely septic emboli to lungs Echo pending ID consulted - switch abx to Cefazolin Dr. Angeles to treat back pain conservatively Consulted Ir for drainage of septic SC joint to be doneon 05/09 (2) Septic joint Current Visit: Yes Status: Acute Assessment and Plan: Visualized on MRI - right sternoclavicular joint Right SC joint inflammation on exam with tenderness to palpation CT scan with contrast shows septic joint vs arthritis with extravasation surrounding, along with pulmonary nodules concerning for septic emboli Dr. Duenas consulted - appreciate recs IR to tap on 05/09 Abx Cefazolin day 1 (3) Cauda equina syndrome Current Visit: Yes Status: Suspected Assessment and Plan: Partial compression seen on MRI Dr. Angeles to treat conservatively - he states he does not believe this is cuada equina syndrome Pain management Q4H neuro checks (4) Discitis of lumbar region Current Visit: Yes Status: Suspected Assessment and Plan: Seen on MRI - partial compression of the cauda equina Pt with LE weakness and one episode of urinary incontinence Plan as #3 above (5) Osteomyelitis Current Visit: Yes Status: Suspected Assessment and Plan: Visualized on MRI - right sternoclavicular joint and lumbar spine Right SC joint inflammation on exam with tenderness to palpation L spine tenderness to palpation Plan as above (6) Diabetes mellitus Current Visit: Yes Status: Acute Assessment and Plan: Will place on low dose SSI cont to monitor (7) Hyponatremia Current Visit: Yes Status: Acute Assessment and Plan: New onset hyponatremia of 130 Partially correctable with BG Will bolus 1L with normal saline and recheck Q4 neuro and sodium checks Will obtain urine lytes total of 3L given Sodium stable without changes in mental status DC fluids Urine lytes wnl (8) Anemia Current Visit: Yes Status: Acute Assessment and Plan: H&H 8.1/24.8 - on admission No Hx of anemia Denies hematuria, hematochezia, and hemetemesis Reports daily nose bleeds Iron panel, ferritin, B12 and folate are suggestive of anemia of chronic disease Stool guiac pending Cont to monitor Hemoglobin dropped to 7.1 overnight - likely dilutional as WBC and platelets also decreased Will recheck H&H Type and screen completed - transfuse as needed for less than 7 Pt remains asymptomatic (9) Hypertension Current Visit: Yes Status: Acute Assessment and Plan: Hypertensive in ED - BPs have been high/normal Likely secondary to pain Cont home medications and pain control (10) DVT prophylaxis Current Visit: Yes Status: Acute Assessment and Plan: EPCDs due to anemia - Time Spent with Patient Total time spent is greater than 50% in coordination of care (as documented) at patient's floor/unit and/or counseling patient: Internal Medicine: Result - Labs CBC & Chem 7: 05/08/18 01:36 05/08/18 05:40 Labs: Short CBC 05/07/18 05/08/18 Range/Units 11:15 01:36 WBC 15.8 H 12.2 H (4.3-11.1) K/mcL Hgb 8.1 L 7.1 L (11.5-15.4) g/dL Hct 24.8 L 22.0 L (35.3-44.9) % Plt Count 599 H 491 H (140-400) K/mcL Neutrophils # 13.9 H 9.5 H (1.6-8.9) K/mcL BMP 05/07/18 05/07/18 05/07/18 11:15 17:57 22:10 Sodium 130 L 129 L 127 L Potassium 3.7 Chloride 95 L Carbon Dioxide 22 L BUN 22 Creatinine 0.77 Glucose 311 H Calcium 9.4 05/08/18 05/08/18 01:36 05:40 Sodium 130 L 130 L Potassium 3.8 Chloride 97 L Carbon Dioxide 25 BUN 13 Creatinine 0.68 Glucose 233 H Calcium 8.5 L Urine 05/07/18 Range/Units 11:34 Urine Color Yellow (Yellow) Urine Clarity Clear (Clear) Urine pH 6.0 (5.0-8.0) pH Units Ur Specific [place] 1.030 H (1.010-1.025) Urine Protein 30 H (Neg-Trace) mg/dL Urine Glucose (UA) 500 H (Normal) mg/dL - ABG Interpretation ABG results: ABG ABG pH 7.54 pH Units (7.32-7.45) H 05/07/18 16:08 ABG pCO2 27 mmHg (35-45) L 05/07/18 16:08 ABG pO2 97 mmHg (85-104) 05/07/18 16:08 ABG O2 Saturation 99 % (95-98) H 05/07/18 16:08 - Impressions Impressions Thoracic Spine MRI 05/07/18 00:00 IMPRESSION: Small to moderate broad-based right paracentral disc protrusion at T10-11. No cord compression or stenosis is identified. No evidence of acute fracture or abnormal enhancement within the thoracic spine. D/ / 05/07/2018 14:30:47 Pepe Giron MD / wilman Interpreting Provider: Pepe Giron MD Lumbar Spine MRI 05/07/18 10:40 IMPRESSION: Severe spinal canal stenosis at L4-5 with mass effect on the cauda equina. This is secondary to grade 1 anterolisthesis, facet degenerative changes, and disc osteophyte complex. There is endplate edema at this level, likely degenerative in nature with associated enhancement. Clinical correlation with symptoms of cauda equina syndrome is recommended. Multiple levels of endplate edema throughout the lumbar spine, without evidence of endplate destruction, or fluid signal within the disc space. There is associated enhancement. These are favored to represent degenerative edema enhancement. Clinical correlation with less likely possibility of early discitis or osteomyelitis should be considered. Diffusely T1 hypointense marrow signal. Differential includes marrow involving or marrow replacing processes. D/ / 05/07/2018 14:27:34 Steffen Roman MD / wilman Interpreting Provider: Steffen Roman MD Cervical Spine MRI 05/07/18 10:41 IMPRESSION: Partially imaged edema and inflammation involving the right sternoclavicular junction. Differential includes septic arthritis, osteomyelitis, or neoplastic process. This is partially imaged on this examination. Recommend further evaluation with CT chest with contrast. Multilevel degenerative changes of the cervical spine with varying degrees of spinal canal stenosis and neural foraminal stenosis, as detailed above. No evidence of abnormal T2 signal within the spinal cord. No evidence of discitis or osteomyelitis within the cervical spine. No evidence of epidural abscess. D/ / 05/07/2018 14:25:02 Steffen Roman MD / earnold Interpreting Provider: Steffen Roman MD Head CT 05/07/18 10:41 IMPRESSION: No acute intracranial abnormality. D/ / Mark Rodriguez MD / Mark Rodriguez MD Interpreting Provider: Mark Rodriguez MD Chest X-Ray 05/07/18 10:47 IMPRESSION: 1. No active pulmonary disease. D/ / Kurt Gurrola MD / Kurt Gurrola MD Interpreting Provider: Kurt Gurrola MD Chest CT 05/08/18 17:37 IMPRESSION: 1. Inflammation centered at the right sternoclavicular joint is favored to represent septic arthritis with osteomyelitis. Adjacent foci of high attenuation could represent calcifications or active arterial extravasation. 2. Numerous pulmonary nodules. Recommend follow-up: In a low-risk patient, CT at 3-6 months, then consider CT at 18-24 months. In a high-risk patient, CT at 3-6 months, then CT at 18-24 months. 3. Mediastinal adenopathy can be reassessed on follow-up imaging as well. D/ / Rocael Syed MD / Rocael Syed MD Interpreting Provider: Rocael Syed MD Consult Discharge Plan - Plan Referrals: [facility] [place],Kirby Piedra MD [Primary Care Provider] - <Fiona Ma - Last Filed: 05/08/18 16:35> Hospitalist Progress Note - Encounter Date of Encounter: 05/08/18 - Exam Vitals: Temp Pulse Resp BP Pulse Ox 98.5 F 84 14 104/56 96 05/08/18 15:43 05/08/18 15:43 05/08/18 15:43 05/08/18 15:43 05/08/18 15:43 - Time Spent with Patient Total time spent is greater than 50% in coordination of care (as documented) at patient's floor/unit and/or counseling patient: Internal Medicine: Result - Labs CBC & Chem 7: 05/08/18 01:36 05/08/18 05:40 Labs: Short CBC 05/08/18 Range/Units 01:36 WBC 12.2 H (4.3-11.1) K/mcL Hgb 7.1 L (11.5-15.4) g/dL Hct 22.0 L (35.3-44.9) % Plt Count 491 H (140-400) K/mcL Neutrophils # 9.5 H (1.6-8.9) K/mcL BMP 05/07/18 05/07/18 05/08/18 17:57 22:10 01:36 Sodium 129 L 127 L 130 L Potassium 3.8 Chloride 97 L Carbon Dioxide 25 BUN 13 Creatinine 0.68 Glucose 233 H Calcium 8.5 L 05/08/18 05:40 Sodium 130 L Potassium Chloride Carbon Dioxide BUN Creatinine Glucose Calcium - ABG Interpretation ABG results: ABG ABG pH 7.54 pH Units (7.32-7.45) H 05/07/18 16:08 ABG pCO2 27 mmHg (35-45) L 05/07/18 16:08 ABG pO2 97 mmHg (85-104) 05/07/18 16:08 ABG O2 Saturation 99 % (95-98) H 05/07/18 16:08 - Impressions Impressions Chest CT 05/08/18 17:37 IMPRESSION: 1. Inflammation centered at the right sternoclavicular joint is favored to represent septic arthritis with osteomyelitis. Adjacent foci of high attenuation could represent calcifications or active arterial extravasation. 2. Numerous pulmonary nodules. Recommend follow-up: In a low-risk patient, CT at 3-6 months, then consider CT at 18-24 months. In a high-risk patient, CT at 3-6 months, then CT at 18-24 months. 3. Mediastinal adenopathy can be reassessed on follow-up imaging as well. D/ / Rocael Syed MD / Rocael Syed MD Interpreting Provider: Rocael Syed MD - Attending Attestation I examined this patient and my medical decision-making was reviewed with the Resident Physician Adalid. I agree with the documented findings, disposition and treatment plan as described except to the extent set forth below. Ms Sims is admitted for Severe Spinal stenosis L4-L5 with mass effect on cauda equina, bacteremia, and osteo of vertebral bodies and right sternoclavicular joint awake,eating lunch, no fevers, chills, n/v. pain currently tolerable in back. denies lightheadedness, dizziness, sob or fatigue. gen- alert, awake,appears stated age eyes- pupils equal round , + conjunctival pallor cv- reg rate and rhythm, normal s1,s2, no murmurs appreciated lungs- ctabl, no wheezing, rhonchi or crackles, normal resp effort neuro- AAOx3, CN grossly intact, no focal deficits Severe Spinal stenosis L4-L5 with mass effect on cauda equina cannot rule out early discitis vs osteo -Dr Bales following + blcxs as expected, source unknown, -ID following dc vanc + cipro and begin ancef -prn pain control Right Sternoclavicular junction edema/inflammation with possible septic joint/osteo/neoplasm- checked ct chest with contrast and confirmed, IR ocnsulted to tap joint in am Sepsis 2/2 osteo/discitis suspected and + bacteremia resolved -stable off ivfs (were causing na to decrease), cont to monitor ancef, ID following -+ staph species 2/2 bl cxs--check echo , repeat cultures sent Anemia- unclear if acute or acute on chronic-current drop appears to be dilutional ,asx, repeat level later today, transfuse <7, occult stool remains pending, anemia work up Incidental multiple nodules on cT chest- this will require further follow up outpt for monitoring further diagnosis and plan as per resident <Ling Cordoba R - Last Filed: 05/08/18 16:05> (1) Sepsis Qualifiers: Sepsis type: sepsis due to unspecified organism Qualified Code(s): A41.9 - Sepsis, unspecified organism (2) Septic joint Qualifiers: Septic arthritis location: shoulder Septic arthritis organism: due to unspecified organism Laterality: right Qualified Code(s): M00.9 - Pyogenic arthritis, unspecified (5) Osteomyelitis Qualifiers: Osteomyelitis type: unspecified type Osteomyelitis location: unspecified site Qualified Code(s): M86.9 - Osteomyelitis, unspecified (6) Diabetes mellitus Qualifiers: Diabetes mellitus type: type 2 Diabetes 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
--- NOTE | 2018-05-08 08:24 | Electrocardiograph Report ---
[employer] Test Date: 2018-05-07 Pat Name: Nirmala Sims Department: EXAM3 Room: [facility] Gender: F Program Associate: : [id number] Requested By: Ag Guerrero Order Number: [id number] Reading MD: Iftikhar Wakefield Measurements Intervals [place] Rate: 102 P: 69 MN: 130 QRS: 58 QRSD: 75 T: 22 QT: 332 QTc: 433 Interpretive Statements Sinus tachycardia Probable left atrial enlargement Electronically Signed On 05-08-2018 8:23:19 EST by Iftikhar Wakefield
[2018-05-08] MEDS: Lisinopril-HCTZ 20-12.5mg TABLET PO SCH (08:32)
[2018-05-08] MEDS: Insulin LISPRO 300 UNITS/3 ML VIAL SQ SCH ×3 (08:32→16:34)
[2018-05-08] MEDS ORDERED: Lisinopril-HCTZ 20-12.5mg TABLET PO SCH (09:00)
--- NOTE | 2018-05-08 10:55 | Spinal Consult Note ---
Date of Encounter: 05/08/18 Time of Encounter: 10:53 Assessment and Plan (1) Spondylolisthesis at L4-L5 level Current Visit: Yes Status: Chronic (2) Lumbar stenosis without neurogenic claudication Current Visit: Yes Status: Chronic On exam she is lying in bed in moderate distress secondary to back pain. She is neurovascularly intact with regard to her bilateral lower extremities. She has a negative straight leg raise. Her hips move symmetrically. She has no clonus. Abdomen is soft and nontender. There is no clubbing cyanosis or edema. MRI of the lumbar spine reveals multilevel degenerative changes and disc desiccation. There is a grade 1 degenerative spondylolisthesis at L4-5 with severe stenosis at this level. Impression: 1) spondylolisthesis L4-L5 2) lumbar stenosis 3) lumbar radiculopathy Plan: Have no concern for cauda equina syndrome at this time. However she does have severe stenosis and degenerative spondylolisthesis which warrants treatment. In this regard I find it reasonable to start a formal physical therapy and low back program to include modalities. She can start this as an inpatient and transfer this as an outpatient. In addition, I think she would be a good candidate for trial of lumbar epidural steroid injections. Upon discharge she can be referred to Dr. Orr in the spine Center for an appointment next week. She will follow-up in my office in 6 weeks to evaluate her response to conservative treatment and may be a reasonable candidate for surgical intervention if she fails nonoperative treatment. There is no acute neurologic deficit to more immediate surgical intervention. I agree with analgesics, muscle relaxants, and consideration of neuroleptics is currently outlined. History of Present Illness Chief complaint: Back pain HPI: Ms. Sims is a 63 year old female Who has had a long-standing history of intermittent back pain but has not an acute episode of severe low back pain lasting for 2 weeks which has been exacerbated by cold weather. She says due to the pain she has had difficulty ambulating. She now uses a cane and also complains of left lower extremity radicular symptoms. She denies current bowel bladder symptomatology. She rates the pain an 8 on a pain scale. Past treatments have included narcotic analgesics. She has not had physical therapy or lumbar epidural steroid injections or neuroleptics. Past Med Surg Social Fam HX - Past Medical History Medical history: diabetes, GERD, hyperlipidemia, hypertension Psychiatric history: no psych history - Past Surgical History Surgical History: other (right foot surgeries) - Social History Smoking Status: Never smoker Smokeless Tobacco Status: No Alcohol use: none Drug use: none - Family History Father Hx Family Cardiac Disorders: Yes Hx Family Endocrine Disorder: Yes Hx Family Neurologic Disorders: Yes Mother Hx Family Cardiac Disorders: Yes Hx Family Endocrine Disorder: Yes Hx Family Neurologic Disorders: Yes Medications and Allergies Acetaminophen [Tylenol Arthritis] 650 mg PO Q8H PRN 05/07/18 [History] Cholecalciferol (D-3) [Vitamin D] 1,000 unit PO DAILY 05/07/18 [History] Lisinopril-HCTZ 20-12.5 [Prinzide 20-12.5] 1 each PO DAILY 05/07/18 [History] Mirtazapine [Remeron] 15 mg PO HS 05/07/18 [History] Pantoprazole Sodium 40 mg PO DAILY 05/07/18 [History] Pravastatin Sodium [Pravachol] 40 mg PO HS 05/07/18 [History] Tizanidine HCl 4 mg PO Q8H PRN 05/07/18 [History] Vitamin B Complex [B Complex] 1 each PO DAILY 05/07/18 [History] glipiZIDE [Glucotrol] 5 mg PO 1200 05/07/18 [History] Allergy/AdvReac Type Severity Reaction Status Date / Time aspirin Allergy Gastrointestinal Verified 05/13/17 16:28 Upset Ether Allergy See Verified 05/13/17 16:26 Comments NSAIDS (Non-Steroidal Allergy Gastrointestinal Verified 05/13/17 16:28 Anti-Inflamma Upset ondansetron Allergy Hallucinati Verified 05/13/17 16:28 [From Zofran (as ng hydrochloride)] Penicillins [PCN] Allergy Rash Verified 05/13/17 16:26 pioglitazone [From Actos] Allergy Hives Verified 05/13/17 16:27 Results - Labs Result Diagrams: 05/08/18 01:36 05/08/18 05:40 Labs: Abnormal lab results WBC 12.2 K/mcL (4.3-11.1) H 05/08/18 01:36 RBC 2.61 M/mcL (3.82-4.97) L 05/08/18 01:36 Hgb 7.1 g/dL (11.5-15.4) L 05/08/18 01:36 Hct 22.0 % (35.3-44.9) L 05/08/18 01:36 MCH 27.2 pg (28.0-33.3) L 05/08/18 01:36 Plt Count 491 K/mcL (140-400) H 05/08/18 01:36 Neutrophils # 9.5 K/mcL (1.6-8.9) H 05/08/18 01:36 ESR >= 130 mm/hr (0-15) H 05/07/18 11:15 ABG pH 7.54 pH Units (7.32-7.45) H 05/07/18 16:08 ABG pCO2 27 mmHg (35-45) L 05/07/18 16:08 ABG O2 Saturation 99 % (95-98) H 05/07/18 16:08 Sodium 130 mEq/L (136-145) L 05/08/18 05:40 Chloride 97 mEq/L (98-107) L 05/08/18 01:36 Glucose 233 mg/dL (70-105) H 05/08/18 01:36 POC Glucose 188 mg/dL (70-99) H 05/07/18 20:43 Calculated Osmolality 278 (280-300) L 05/08/18 01:36 Calcium 8.5 mg/dL (8.6-10.3) L 05/08/18 01:36 Magnesium 1.3 mg/dL (1.6-2.6) L 05/08/18 01:36 Iron 10 mcg/dL (50-170) L 05/08/18 01:36 % Saturation 5 % (15-50) L 05/08/18 01:36 Transferrin 139 mg/dL (203-362) L 05/08/18 01:36 Ferritin 716 ng/mL (10-120) H 05/08/18 01:36 C-Reactive Protein 172 mg/L (Less than 10) H 05/07/18 11:15 Vitamin B12 > 1500 pg/mL (250-1100) H 05/08/18 01:36 Beta-Hydroxybutyric Acd 0.75 mmol/L (0.02-0.27) H 05/07/18 16:13 Ur Specific [place] 1.030 (1.010-1.025) H 05/07/18 11:34 Urine Protein 30 mg/dL (Neg-Trace) H 05/07/18 11:34 Urine Glucose (UA) 500 mg/dL (Normal) H 05/07/18 11:34 Urine Ketones 40 mg/dL (Negative) H 05/07/18 11:34 Urine Microscopic WBC 5-15 per hpf (0-3) H 05/07/18 11:34 Ur Squamous Epith Cells Many per lpf (None-Few) H 05/07/18 11:34 Staphylococcus sp PCR DETECTED (Not Detect) A 05/07/18 16:08 Staph aureus (PCR) DETECTED (Not Detect) A 05/07/18 16:08 H & H 05/07/18 05/08/18 Range/Units 11:15 01:36 Hgb 8.1 L 7.1 L (11.5-15.4) g/dL Hct 24.8 L 22.0 L (35.3-44.9) % All other labs normal. Consult Discharge Plan - Plan Referrals: [place],Kirby Piedra MD [Primary Care Provider] -
[2018-05-08] MEDS: *HR* HYDROcodone/Acet 5/325 mg TABLET PO PRN ×2 (12:12→19:08)
[2018-05-08] MEDS: ceFAZolin 1,000 MG in Water for inj. (sterile) 20 ML 10 ML IVP SCH (16:03)
[2018-05-08 16:33] LABS: Hematocrit 25.6 % (35.3-44.9); Hemoglobin 8.1 g/dL (11.5-15.4)
[2018-05-08 16:54] LABS: INR 1.4; Prothrombin Time 15.4 Seconds (9.4-12.1)
--- NOTE | 2018-05-08 20:28 | Infectious Disease Consult ---
Date of Encounter: 05/08/18 Time of Encounter: 20:25 Assessment and Plan (1) Sepsis due to Staphylococcus aureus Status: Acute Assessment and plan: has 4 SIRS criteria on admission without associated lactic acidosis or end organ damage secondary to MSSA bacteremia (2) MSSA bacteremia Status: Acute Assessment and plan: blood cultures 2/2 sets 05/07 positive for GPC likely MSSA per pcr source not clear complicated; patient has hardware in bilateral feet from previous surgeries and septic arthritis of the sternoclavicular joint and maybe right shoulder exam with no other minor López's Criteria currently on vanc/cipro d/c current antibiotics start cefazolin 2 grams q8hrs duration of treatment at least 6 weeks will need a midline once blood cultures negative for 48 hours TTE done, official report pending will need GERTRUDE prior to d/c monitor labs and for drug toxicity. (3) Septic joint Status: Acute Assessment and plan: CT chest 05/08: Inflammation centered at the right sternoclavicular joint is favored to represent septic arthritis with osteomyelitis. causative organims likely mssa some pain and decreased range of motion in the right shoulder d/w Dr. Bales, he recommended consulting ortho d/w hospitalist team, recommend ortho to evaluate and see if they need to image or tap the joint; defer decision to them patient currently on vanc/cipro; will d/c current antibiotics start cefazolin 2 grams [id number] monitor labs and for drug toxicity Qualifiers: Septic arthritis location: shoulder Septic arthritis organism: due to unspe cified organism Laterality: right Qualified Code(s): M00.9 - Pyogenic arthritis, unspecified (4) Urinary incontinence Status: Acute Assessment and plan: secondary to quada equina syndrome spine surgery following Qualifiers: Urinary Incontinence type: unspecified incontinence Qualified Code(s): R32 - Unspecified urinary incontinence (5) Drug allergy, antibiotic Status: Acute Assessment and plan: had hives to n when she was 10 years old does not recall taking cephalosporins or amoxicillin (6) Diabetes mellitus Status: Acute Qualifiers: Diabetes mellitus type: type 2 Diabetes mellitus jail insulin use: without jail use Diabetes mellitus complication status: with unspecified complications Qualified Code(s): E11.8 - Type 2 diabetes mellitus with unspecified complications (7) Hypertension Status: Acute Qualifiers: Hypertension type: unspecified Qualified Code(s): I10 - Essential (primary) hypertension (8) Osteomyelitis Status: Suspected Qualifiers: Osteomyelitis type: unspecified type Osteomyelitis location: unspecified site Qualified Code(s): M86.9 - Osteomyelitis, unspecified (9) Cauda equina syndrome Status: Suspected (10) Spondylolisthesis at L4-L5 level Status: Chronic (11) Decubital ulcer Status: Acute Qualifiers: Pressure injury location: unspecified location Pressure injury stage: unspecified pressure injury stage Qualified Code(s): L89.90 - Pressure ulcer of unspecified site, unspecified stage Infectious Disease HPI - Data of Consult Patient: new to practice Consult date: 05/08/18 Requesting Physician: Fiona Ma Primary Care Provider: Kirby Ansari MD - Consult Narrative Reason for consult: sepsis History of present illness: Ms. Sims is a 63 year old female Patient is a 63 year-old woman who presented to [facility] on 05/07 with worsening neck and back pain along with one episode of urinaryincontinence, admitted for cauda equine syndrome and sepsis. We are consulted on 05/07for sepsis likely source of septic arthritis vs osteomyelitis in R sternoclavicular joint and bacteremia with S. aureus. The patient is a 63 year-old female history of DM, IBS-D, HTN, GERD, fi bromyalgia who presented to the ED with neck and back pain that began three weeks ago. The pain has been worsening along with ~25 lbs weight lossover that time and has not responded to Tylenol 3 arthritis. She admits subjective fevers, night sweats, andsome swelling in the neck that has decreased but the neck pain is aggravated by rotating her head especially to the right as well as any lifting with the arms or shoulder shrug. She also endorses tenderness to palpation at the medial clavicle as well as pain into the R axilla. She has history of low back pain however this has worsened over the past three weeks as it radiates down her L leg to her L foot and is accompanied by pain in the hips aggravated with bending over or twisting. There is a difference of sensation over the anterior L leg and top of L foot when compared to the R. At the onset three weeks ago, she admits an episode of incontinencebut she has had no subsequentloss of bladder control.Past trauma history of blunt injury to R shoulder 20 years ago and past surgical history of a pin in the L great toe and antwon in R heel both associated with work-related injuries. She denies rashes, history of STIs, recent travel, tobacco, alcohol orIV drug use. On further questioning, patient tells me the back pain has been going on for quiet some time. Patient lives alone at home with no children, no pets. retired from [employer]. In the ED, CXR, head CT were negative for acute changes. MRI was significant for edema and inflammation at R sternoclavicular joint, grade 1 anterolisthesis and severe stenosis at L4-L5 with mass effect onto the cauda equina, and a small R paracentral disc protrusion at T10-T11. Patient was admitted for cauda equine syndrome andsepsis with possible source from the R SC joint meeting criteria per WBC, HR. UA was positive for WBC 5-15 but no bacteria, leukocytes or nitrates. Two blood samples from 05/07were preliminarily positive for Gram positive cocci with culture pending. Repeat draws were collected 05/08. Labs on admission showed hyponatremia, ABG with respiratory acidosis, lactate of 1.3, ESR >130, CRP 172. Consult to ID was placed given concern of R SC joint for septic arthritis vsosteomyelitis vs malignancy as well as possible discitis vs osteomyelitis in lumbar spine. Patient has been started on vancomycin and cipro; she admits a penicillin allergic reaction during her childhood that involved a rash. She had two low-grade fevers of 100.6 on 05/07 but none today. CC: Fiona Ma Past Med Surg Social Fam HX - Past Medical History Medical history: diabetes, GERD, hyperlipidemia, hypertension Psychiatric history: no psych history - Past Surgical History Surgical History: other (right foot surgeries) - Social History Smoking Status: Never smoker Smokeless Tobacco Status: No Alcohol use: none Drug use: none - Family History Father Hx Family Cardiac Disorders: Yes Hx Family Endocrine Disorder: Yes Hx Family Neurologic Disorders: Yes Mother Hx Family Cardiac Disorders: Yes Hx Family Endocrine Disorder: Yes Hx Family Neurologic Disorders: Yes Infectious Disease-CN:Meds Acetaminophen [Tylenol Arthritis] 650 mg PO Q8H PRN 05/07/18 [History] Cholecalciferol (D-3) [Vitamin D] 1,000 unit PO DAILY 05/07/18 [History] Lisinopril-HCTZ 20-12.5 [Prinzide 20-12.5] 1 each PO DAILY 05/07/18 [History] Mirtazapine [Remeron] 15 mg PO HS 05/07/18 [History] Pantoprazole Sodium 40 mg PO DAILY 05/07/18 [History] Pravastatin Sodium [Pravachol] 40 mg PO HS 05/07/18 [History] Tizanidine HCl 4 mg PO Q8H PRN 05/07/18 [History] Vitamin B Complex [B Complex] 1 each PO DAILY 05/07/18 [History] glipiZIDE [Glucotrol] 5 mg PO 1200 05/07/18 [History] Allergy/AdvReac Type Severity Reaction Status Date / Time aspirin Allergy Gastrointestinal Verified 05/13/17 16:28 Upset Ether Allergy See Verified 05/13/17 16:26 Comments NSAIDS (Non-Steroidal Allergy Gastrointestinal Verified 05/13/17 16:28 Anti-Inflamma Upset ondansetron Allergy Hallucinati Verified 05/13/17 16:28 [From Zofran (as ng hydrochloride)] Penicillins [PCN] Allergy Rash Verified 05/13/17 16:26 pioglitazone [From Actos] Allergy Hives Verified 05/13/17 16:27 Review of systems: ROS: General- admits fatigue,fever, night sweats, weight loss of 25lbs in past month,denies headache ENT- admits epistaxis, congestion, denies throat pain,rhinorrhea CV- denies chest pain, palpitations Respiratory- denies cough, wheezing, dyspnea GI- admits lower abdominal pain,denies nausea, vomiting - admits itching in pubic area, denies dysuria, hematuria, discharge MSK- admits pain of RUE through ROM, purnima hip pain, tenderness at low back, denies myalgia Neuro- admits tingling of L leg to top of L foot, denies other paresthesias, tremors, paralysis Endocrine- admits polydipsia, polyuria Skin- admits yeast rash under breast, denies other rashes, lesions Exam - Constitutional Vitals: Temp Pulse Resp BP Pulse Ox 99.1 F 82 17 102/57 100 05/08/18 17:51 05/08/18 17:51 02/26/19 17:51 05/08/18 19:00 05/08/18 17:51 Exam: Physical Exam: GENERAL: Appears as stated age, mild distress as she tries to find comfortable position HEAD: Normocephalic, atraumatic ENT:PERRL, EOMI, oral mucosa moist, some dental work present, no lesions or dentures RESPIRATORY: CTA purnima, no wheezes, rales, rhonchi CHEST: TENDERNESS OVER THE STERNOCLAVICULAR JOINT CARDIAC: RRR, distant heart sounds, Normal S1 and S2, without murmurs, gallops, or rubs EXTREMITIES: No peripheral edema, pulses intact purnima ABDOMEN: soft, BSx4, mild tenderness to palpation of purnima lower quadrants MUSCULOSKELETAL: full ROM purnima extremities, R shoulder limited ROM at extremes during active and passive motion, pain with resisted shoulder raise and abduction, warmth and edema present at R medial clavicular head, Extremities without clubbing, cyanosis or edema.Tenderness to palpation of low back approx. L4 NEUROLOGIC EXAM:No focal deficits,StrengthRUE - 4/5, LUE 5/5, RLE - 4/5, LLE - 4/5, Sensation symmetric of purnima UE, Decreased sensation LLE vs RLE over anterior leg, normal sensation posterior and lateral legs purnima PSYCHIATRIC: Normal mood SKIN: No rash or lesions.; no appreciable [place] lesions, [place] nodes, splinter hemorrhages Infectious Disease CN: Results - Labs CBC & Chem 7: 05/08/18 16:04 05/08/18 05:40 Cultures: Cultures 05/08/18 09:10 Blood Culture - Preliminary Peripheral Venipuncture Culture is incubating and being continuously monitored for growth. Final report to follow. 05/08/18 09:16 Blood Culture - Preliminary Peripheral Venipuncture Culture is incubating and being continuously monitored for growth. Final report to follow. 05/07/18 16:13 Blood Culture - Preliminary Peripheral Venipuncture Gram Positive Cocci 05/07/18 16:08 Blood Culture - Preliminary Peripheral Venipuncture Gram Positive Cocci Serology: Serology 05/08/18 05/08/18 05/07/18 Range/Units 06:52 06:52 16:08 Urine Color (Yellow) Urine Clarity (Clear) Urine pH (5.0-8.0) pH Units Ur Specific [place] (1.010-1.025) Urine Protein (Neg-Trace) mg/dL Urine Glucose (UA) (Normal) mg/dL Urine Ketones (Negative) mg/dL Urine Blood (Negative) Urine Nitrite (Negative) Urine Bilirubin (Negative) Urine Urobilinogen (Normal) mg/dL Ur Leukocyte Esterase (Negative) Urine Microscopic RBC (0-3) per hpf Urine Microscopic WBC (0-3) per hpf Ur Squamous Epith Cells (None-Few) per lpf Urine Bacteria (None-Few) per hpf Hyaline Casts (None-Few) per lpf Ur Culture Indicated? (NO) Urine Osmolality 310 (300-1090) mOsm/kg Urine Sodium 58.6 mEq/L Urine Chloride 74 mEq/L A. baumannii (PCR) Not Detected (Not Detect) Sanaz albicans (PCR) Not Detected (Not Detect) C. glabrata (PCR) Not Detected (Not Detect) C. krusei (PCR) Not Detected (Not Detect) C. parapsilosis (PCR) Not Detected (Not Detect) C. tropicalis (PCR) Not Detected (Not Detect) Enterobacteriac sp PCR Not Detected (Not Detect) E. cloacae complex PCR Not Detected (Not Detect) Enterococcus sp PCR Not Detected (Not Detect) E. coli (PCR) Not Detected (Not Detect) H. influenzae (PCR) Not Detected (Not Detect) Klebsiella oxytoca PCR Not Detected (Not Detect) Klebsiella pneumoniae Not Detected (Not Detect) List. monocytogenes PCR Not Detected (Not Detect) N. meningitidis (PCR) Not Detected (Not Detect) Proteus species (PCR) Not Detected (Not Detect) Serratia marcescens PCR Not Detected (Not Detect) Staphylococcus sp PCR DETECTED A (Not Detect) Staph aureus (PCR) DETECTED A (Not Detect) mecA-Methicil Res Gene Not Detected (Not Detect) Streptococcus sp PCR Not Detected (Not Detect) Group A Strep DNA Not Detected (Not Detect) Group B Strep (PCR) Not Detected (Not Detect) Strep pneumoniae (PCR) Not Detected (Not Detect) P. aeruginosa (PCR) Not Detected (Not Detect) Isela/B-Vanco Res Genes Not Detected (Not Detect) KPC (blaKPC) Detect PCR Not Detected (Not Detect) 05/07/18 Range/Units 11:34 Urine Color Yellow (Yellow) Urine Clarity Clear (Clear) Urine pH 6.0 (5.0-8.0) pH Units Ur Specific [place] 1.030 H (1.010-1.025) Urine Protein 30 H (Neg-Trace) mg/dL Urine Glucose (UA) 500 H (Normal) mg/dL Urine Ketones 40 H (Negative) mg/dL Urine Blood Negative (Negative) Urine Nitrite Negative (Negative) Urine Bilirubin Negative (Negative) Urine Urobilinogen Normal (Normal) mg/dL Ur Leukocyte Esterase Negative (Negative) Urine Microscopic RBC 0-3 (0-3) per hpf Urine Microscopic WBC 5-15 H (0-3) per hpf Ur Squamous Epith Cells Many H (None-Few) per lpf Urine Bacteria None Seen (None-Few) per hpf Hyaline Casts None Seen (None-Few) per lpf Ur Culture Indicated? NO (NO) Urine Osmolality (300-1090) mOsm/kg Urine Sodium mEq/L Urine Chloride mEq/L A. baumannii (PCR) (Not Detect) Sanaz albicans (PCR) (Not Detect) C. glabrata (PCR) (Not Detect) C. krusei (PCR) (Not Detect) C. parapsilosis (PCR) (Not Detect) C. tropicalis (PCR) (Not Detect) Enterobacteriac sp PCR (Not Detect) E. cloacae complex PCR (Not Detect) Enterococcus sp PCR (Not Detect) E. coli (PCR) (Not Detect) H. influenzae (PCR) (Not Detect) Klebsiella oxytoca PCR (Not Detect) Klebsiella pneumoniae (Not Detect) List. monocytogenes PCR (Not Detect) N. meningitidis (PCR) (Not Detect) Proteus species (PCR) (Not Detect) Serratia marcescens PCR (Not Detect) Staphylococcus sp PCR (Not Detect) Staph aureus (PCR) (Not Detect) mecA-Methicil Res Gene (Not Detect) Streptococcus sp PCR (Not Detect) Group A Strep DNA (Not Detect) Group B Strep (PCR) (Not Detect) Strep pneumoniae (PCR) (Not Detect) P. aeruginosa (PCR) (Not Detect) Isela/B-Vanco Res Genes (Not Detect) KPC (blaKPC) Detect PCR (Not Detect) Consult Discharge Plan - Plan Referrals: Kirby Ansari MD [Primary Care Provider] -
[2018-05-08] MEDS: Mirtazapine 15 MG TABLET PO SCH (22:05)
[2018-05-09] MEDS: ceFAZolin 1,000 MG in Water for inj. (sterile) 20 ML 10 ML IVP SCH ×3 (00:21→15:58)
[2018-05-09] MEDS: tiZANidine 4 MG TABLET PO PRN ×3 (00:21→20:25)
[2018-05-09] MEDS: *HR* HYDROcodone/Acet 5/325 mg TABLET PO PRN ×4 (01:43→23:51)
[2018-05-09 05:47] LABS: Basophils % 0.3 %; Eosinophils # 0.2 K/mcL (0.0-0.6); Eosinophils % 1.3 %; Immature Granulocytes % 0.8 % (0-4); Lymphocytes # 1.6 K/mcL (0.6-4.6); Lymphocytes % 13.3 %; Mean Corpuscular HGB Conc 31.8 g/dL (31.6-35.5); Mean Corpuscular Hemoglobin 26.9 pg (28.0-33.3); Mean Corpuscular Volume 84.6 fL (83.0-100.0); Mean Platelet Volume 9.4 fL (9.4-12.4); Monocytes % 8.5 %; Neutrophils # 8.9 K/mcL (1.6-8.9); Platelet Count 520 K/mcL (140-400); Red Cell Distribution Width 13.2 % (11.5-14.5); Segmented Neutrophils % 75.8 %
[2018-05-09 06:01] LABS: BUN/Creatinine Ratio 21 (6-26); Blood Urea Nitrogen 16 mg/dL (8-23); Calcium 8.9 mg/dL (8.6-10.3); Carbon Dioxide 25 mEq/L (23-29); Chloride 97 mEq/L (98-107); Glucose 183 mg/dL (70-105); Osmolality,Calculated 280 (280-300); Potassium 3.8 mEq/L (3.5-5.1); Sodium 132 mEq/L (136-145); eGFR For Non-African Americans > 60 (> 60)
[2018-05-09] MEDS: Lisinopril-HCTZ 20-12.5mg TABLET PO SCH (08:31)
[2018-05-09] MEDS: Insulin LISPRO 300 UNITS/3 ML VIAL SQ SCH ×3 (08:31→17:04)
--- NOTE | 2018-05-09 10:24 | Infectious Disease Progress No ---
Date of Encounter: 05/09/18 Time of Encounter: 09:00 - Assessment and Plan (1) Sepsis due to Staphylococcus aureus Current Visit: Yes Status: Acute 4 SIRS criteria on admission without associated lactic acidosis or end organ damage -secondary to MSSA bacteremia Plan: -Continue cefazolin -Blood culture 05/07 x2 prelim positive S. aureus; culture 05/08 pending (2) MSSA bacteremia Current Visit: Yes Status: Acute Blood cultures 04/14 sets 05/07 positive for S. aureus likely MSSA per pcr source not clear complicated; patient has hardware in bilateral feet from previous surgeries and septic arthritis of the sternoclavicular joint and maybe right shoulder exam with no other minor López's Criteria TTE 05/08: LVEF 60%, No valvular vegetations visualized, Mild mitral regurg, Mild-moderate tricuspid regurg Plan: Continue cefazolin 2 grams q8hrs -duration of treatment at least 6 weeks will need a midline once blood cultures negative for 48 hours Plan GERTRUDE prior to d/c Monitor labs and for drug toxicity (3) Septic joint Current Visit: Yes Status: Acute CT chest 05/08: Inflammation centered at the right sternoclavicular joint is favored to represent septic arthritis with osteomyelitis. causative organism likely mssa some pain and decreased range of motion in the right shoulder Plan: IR plan to tap joint today Continue cefazolin 2 grams [id number] monitor labs and for drug toxicity Qualifiers: Septic arthritis location: shoulder Septic arthritis organism: staphylococcal Laterality: right Qualified Code(s): M00.011 - Staphylococcal arthritis, right shoulder (4) Urinary incontinence Current Visit: Yes Status: Acute secondary to cauda equina syndrome; no subsequent episodes -spine surgery following Qualifiers: Urinary Incontinence type: unspecified incontinence Qualified Code(s): R32 - Unspecified urinary incontinence (5) Diabetes mellitus Current Visit: Yes Status: Chronic Qualifiers: Diabetes mellitus type: type 2 Diabetes mellitus long-term insulin use: without long-term use Diabetes mellitus complication status: with hyperglycemia Qualified Code(s): E11.65 - Type 2 diabetes mellitus with hyperglycemia (6) Hypertension Current Visit: Yes Status: Chronic Qualifiers: Hypertension type: essential hypertension Qualified Code(s): I10 - Essential (primary) hypertension (7) Osteomyelitis Current Visit: Yes Status: Suspected Qualifiers: Osteomyelitis type: unspecified type Osteomyelitis location: unspecified site Qualified Code(s): M86.9 - Osteomyelitis, unspecified (8) Cauda equina syndrome Current Visit: Yes Status: Suspected (9) Spondylolisthesis at L4-L5 level Current Visit: Yes Status: Chronic (10) Decubital ulcer Current Visit: Yes Status: Acute Qualifiers: Pressure injury location: unspecified location Pressure injury stage: unspecified pressure injury stage Qualified Code(s): L89.90 - Pressure ulcer of unspecified site, unspecified stage - Subjective Interval history: Patient seen and examined at bedside this morning. She is in no acute distress but she admits an episode of chills and night sweats the prior evening that lasted about 1 hour; in addition she endorses increased frequency in urination that is antony in color. Her LLE and R shoulder pain is improved however the R medial clavicular head is still exquisitely tender to palpation and active motion. The patient has been NPO during the night as it is planned for IR to drain the R SC joint today. She denies fever, headache, chest pain, cough, dyspnea, nausea, vomiting, diarrhea, vaginal discharge, rashes. Infect Dis PN-Objective Data - Labs CBC & Chem 7: 05/09/18 05:25 05/09/18 05:25 Labs: Laboratory Results - last 24 hr 05/08/18 05/08/18 05/08/18 07:55 11:50 16:04 WBC RBC Hgb 8.1 L Hct 25.6 L MCV MCH MCHC RDW Plt Count MPV Immature Gran % Seg Neutrophils % Lymphocytes % Monocytes % Eosinophils % Basophils % Neutrophils # Lymphocytes # Monocytes # Eosinophils # Basophils # PT INR Sodium Potassium Chloride Carbon Dioxide BUN Creatinine Est GFR ( Amer) Est GFR (Non-Af Amer) BUN/Creatinine Ratio Glucose POC Glucose 235 H 226 H Calculated Osmolality Calcium 05/08/18 05/08/18 05/08/18 16:04 16:20 19:25 WBC RBC Hgb Hct MCV MCH MCHC RDW Plt Count MPV Immature Gran % Seg Neutrophils % Lymphocytes % Monocytes % Eosinophils % Basophils % Neutrophils # Lymphocytes # Monocytes # Eosinophils # Basophils # PT 15.4 H INR 1.4 Sodium Potassium Chloride Carbon Dioxide BUN Creatinine Est GFR ( Amer) Est GFR (Non-Af Amer) BUN/Creatinine Ratio Glucose POC Glucose 116 H 267 H Calculated Osmolality Calcium 05/09/18 05/09/18 05/09/18 05:25 05:25 07:16 WBC 11.7 H RBC 2.60 L Hgb 7.0 L Hct 22.0 L MCV 84.6 MCH 26.9 L MCHC 31.8 RDW 13.2 Plt Count 520 H MPV 9.4 Immature Gran % 0.8 Seg Neutrophils % 75.8 Lymphocytes % 13.3 Monocytes % 8.5 Eosinophils % 1.3 Basophils % 0.3 Neutrophils # 8.9 Lymphocytes # 1.6 Monocytes # 1.0 Eosinophils # 0.2 Basophils # 0.0 PT INR Sodium 132 L Potassium 3.8 Chloride 97 L Carbon Dioxide 25 BUN 16 Creatinine 0.77 Est GFR ( Amer) > 60 Est GFR (Non-Af Amer) > 60 BUN/Creatinine Ratio 21 Glucose 183 H POC Glucose 163 H Calculated Osmolality 280 Calcium 8.9 Cultures: Cultures 05/07/18 16:13 Blood Culture - Preliminary Peripheral Venipuncture Staphylococcus aureus 05/07/18 16:08 Blood Culture - Preliminary Peripheral Venipuncture Staphylococcus aureus 05/08/18 09:10 Blood Culture - Preliminary Peripheral Venipuncture Culture is incubating and being continuously monitored for growth. Final report to follow. 05/08/18 09:16 Blood Culture - Preliminary Peripheral Venipuncture Culture is incubating and being continuously monitored for growth. Final report to follow. Serology 05/08/18 05/08/18 05/07/18 Range/Units 06:52 06:52 16:08 Urine Color (Yellow) Urine Clarity (Clear) Urine pH (5.0-8.0) pH Units Ur Specific [place] (1.010-1.025) Urine Protein (Neg-Trace) mg/dL Urine Glucose (UA) (Normal) mg/dL Urine Ketones (Negative) mg/dL Urine Blood (Negative) Urine Nitrite (Negative) Urine Bilirubin (Negative) Urine Urobilinogen (Normal) mg/dL Ur Leukocyte Esterase (Negative) Urine Microscopic RBC (0-3) per hpf Urine Microscopic WBC (0-3) per hpf Ur Squamous Epith Cells (None-Few) per lpf Urine Bacteria (None-Few) per hpf Hyaline Casts (None-Few) per lpf Ur Culture Indicated? (NO) Urine Osmolality 310 (300-1090) mOsm/kg Urine Sodium 58.6 mEq/L Urine Chloride 74 mEq/L A. baumannii (PCR) Not Detected (Not Detect) Sanaz albicans (PCR) Not Detected (Not Detect) C. glabrata (PCR) Not Detected (Not Detect) C. krusei (PCR) Not Detected (Not Detect) C. parapsilosis (PCR) Not Detected (Not Detect) C. tropicalis (PCR) Not Detected (Not Detect) Enterobacteriac sp PCR Not Detected (Not Detect) E. cloacae complex PCR Not Detected (Not Detect) Enterococcus sp PCR Not Detected (Not Detect) E. coli (PCR) Not Detected (Not Detect) H. influenzae (PCR) Not Detected (Not Detect) Klebsiella oxytoca PCR Not Detected (Not Detect) Klebsiella pneumoniae Not Detected (Not Detect) List. monocytogenes PCR Not Detected (Not Detect) N. meningitidis (PCR) Not Detected (Not Detect) Proteus species (PCR) Not Detected (Not Detect) Serratia marcescens PCR Not Detected (Not Detect) Staphylococcus sp PCR DETECTED A (Not Detect) Staph aureus (PCR) DETECTED A (Not Detect) mecA-Methicil Res Gene Not Detected (Not Detect) Streptococcus sp PCR Not Detected (Not Detect) Group A Strep DNA Not Detected (Not Detect) Group B Strep (PCR) Not Detected (Not Detect) Strep pneumoniae (PCR) Not Detected (Not Detect) P. aeruginosa (PCR) Not Detected (Not Detect) Isela/B-Vanco Res Genes Not Detected (Not Detect) KPC (blaKPC) Detect PCR Not Detected (Not Detect) 05/07/18 Range/Units 11:34 Urine Color Yellow (Yellow) Urine Clarity Clear (Clear) Urine pH 6.0 (5.0-8.0) pH Units Ur Specific [place] 1.030 H (1.010-1.025) Urine Protein 30 H (Neg-Trace) mg/dL Urine Glucose (UA) 500 H (Normal) mg/dL Urine Ketones 40 H (Negative) mg/dL Urine Blood Negative (Negative) Urine Nitrite Negative (Negative) Urine Bilirubin Negative (Negative) Urine Urobilinogen Normal (Normal) mg/dL Ur Leukocyte Esterase Negative (Negative) Urine Microscopic RBC 0-3 (0-3) per hpf Urine Microscopic WBC 5-15 H (0-3) per hpf Ur Squamous Epith Cells Many H (None-Few) per lpf Urine Bacteria None Seen (None-Few) per hpf Hyaline Casts None Seen (None-Few) per lpf Ur Culture Indicated? NO (NO) Urine Osmolality (300-1090) mOsm/kg Urine Sodium mEq/L Urine Chloride mEq/L A. baumannii (PCR) (Not Detect) Sanaz albicans (PCR) (Not Detect) C. glabrata (PCR) (Not Detect) C. krusei (PCR) (Not Detect) C. parapsilosis (PCR) (Not Detect) C. tropicalis (PCR) (Not Detect) Enterobacteriac sp PCR (Not Detect) E. cloacae complex PCR (Not Detect) Enterococcus sp PCR (Not Detect) E. coli (PCR) (Not Detect) H. influenzae (PCR) (Not Detect) Klebsiella oxytoca PCR (Not Detect) Klebsiella pneumoniae (Not Detect) List. monocytogenes PCR (Not Detect) N. meningitidis (PCR) (Not Detect) Proteus species (PCR) (Not Detect) Serratia marcescens PCR (Not Detect) Staphylococcus sp PCR (Not Detect) Staph aureus (PCR) (Not Detect) mecA-Methicil Res Gene (Not Detect) Streptococcus sp PCR (Not Detect) Group A Strep DNA (Not Detect) Group B Strep (PCR) (Not Detect) Strep pneumoniae (PCR) (Not Detect) P. aeruginosa (PCR) (Not Detect) Isela/B-Vanco Res Genes (Not Detect) KPC (blaKPC) Detect PCR (Not Detect) - Impressions Impressions Echocardiogram 05/08/18 07:04 Impressions: LVEF 60%. Mild left ventricular diastolic dysfunction. Normal right ventricular structure and function. Mild mitral regurgitation. Mild-moderate tricuspid regurgitation. Mild pulmonary hypertension. Valvular vegetations are not observed on this study. Left Ventricular Wall Motion: Rest Echo Findings All wall segments showed normal motion. Findings: Study Quality * Technically adequate exam. ECG Findings * Normal sinus rhythm. Left Ventricle * LVEF 60%. * Normal LV chamber size, wall thickness and function. * Mild left ventricular diastolic dysfunction. Right Ventricle * Normal right ventricular structure and function. Left Atrium * Mildly dilated left atrium. Right Atrium * Normal right atrial size. Aortic Valve * No aortic regurgitation. * Aortic valve not well visualized. * No aortic stenosis. Mitral Valve * Mild mitral regurgitation. * No mitral stenosis. * Mildly thickened mitral valve leaflets. * Normal mitral valve structure. Tricuspid Valve * Normal tricuspid valve structure. * Mild-moderate tricuspid regurgitation. * Estimated RA pressure is 3 mmHg. * Estimated RVSP is 37 mmHg. * Mild pulmonary hypertension. Pulmonic Valve * Pulmonic valve is not well visualized. * No pulmonic stenosis. * No pulmonic regurgitation. Pulmonary Artery * Pulmonary artery not well visualized. Aorta * Normally sized aortic root. Pericardium * There is no pericardial effusion present. Interatrial Septum * Interatrial septum not well evaluated. IVC * Normal IVC dimensions and inspiratory collapse. Exam - Constitutional Vitals: Temp Pulse Resp BP Pulse Ox 97.7 F 101 16 135/85 94 05/09/18 07:01 05/09/18 07:01 05/09/18 07:01 05/09/18 07:01 05/09/18 08:46 Exam: GENERAL: Appears as stated age, in no acute distress HEAD: Normocephalic, atraumatic ENT:PERRL, EOMI, oral mucosa dry, some dental work present, no lesions or dentures RESPIRATORY: CTA purnima, no wheezes, rales, rhonchi CHEST: TENDERNESS OVER THE STERNOCLAVICULAR JOINT CARDIAC: RRR, distant heart sounds, Normal S1 and S2, without murmurs, gallops, or rubs EXTREMITIES: No peripheral edema, pulses intact purnima ABDOMEN: soft, BSx4, mild tenderness to palpation of purnima lower quadrants MUSCULOSKELETAL: full ROM purnima extremities, R shoulder limited ROM at extremes during active and passive motion, pain with resisted shoulder raise and abduction, warmth and edema present at R medial clavicular head, Extremities without clubbing, cyanosis or edema.Tenderness to palpation of low back approx. L4 NEUROLOGIC EXAM:No focal deficits,StrengthRUE - 4/5, LUE 5/5, RLE - 4/5, LLE - 4/5, Sensation symmetric of purnima UE, Decreased sensation LLE vs RLE over anterior leg, normal sensation posterior and lateral legs purnima PSYCHIATRIC: Normal mood SKIN: mild erythema of skin over sacral area, no open lesions.; no appreciable [place] lesions, [place] nodes, splinter hemorrhages Consult Discharge Plan - Plan Referrals: [facility] – [place] MD [Primary Care Provider] - - Attending Attestation I examined this patient and my medical decision-making was reviewed with the Resident Physician. I agree with the documented findings, disposition and treatment plan as described except to the extent set forth below. Patient seen and examined. clinically stable. ROS without cough or sputum production. no URI symptoms. no abdominal pain. pleuritic chest pain slightly better. Urinary incontinence improved. VS noted Labs reviewed HEENT SILVIA, conjunctiva without hemorrhage lungs CTA B CV RRR no murmur Abdomen Soft: bowel sounds noted Ext adequate perfusion skin no endocarditis stigmata A/P: sepsis MSSA bacteremia wit hseptic emboli to claviculosternal joint and possible septic arthritis or right shoulder quada equina syndrome osteomyelitis of the clavicle urinary incontinence Recommendations await fluid analysis and cultures from shoulder aspiration continue cefazolin 2 grams q 8 duration of treatment likely 6 weeks await GERTRUDE monitor labs and for drug toxicity
[2018-05-09] MEDS: OXYCODONE Oral CONC 10 MG/0.5 ML ORAL.SYG SL PRN (13:26)
[2018-05-09] MEDS ORDERED: *HR* FentaNYL (PF) 100 MCG/2 ML VIAL IVP ONE (15:07)
[2018-05-09] MEDS ORDERED: *HR* Midazolam HCl 2 MG/2 ML VIAL IVP ONE (15:07)
--- NOTE | 2018-05-09 15:08 | Pre-Sedation Evaluation ---
Pre-sedation evaluation - Pre-sedation checklist Date of procedure: 05/09/18 Procedure: SC joint aspiration Recent Vitals: Last Vital Signs Temp 98.8 F 05/09/18 11:50 Pulse 81 05/09/18 11:50 Resp 16 05/09/18 11:50 BP 110/62 05/09/18 11:50 Pulse Ox 99 05/09/18 11:50 H&P (including ROS) documented in medical record: Yes Previous reaction to sedatives/anesthetics: No Dietary Status: NPO after Midnight Airway Assessment: Patient can open mouth completely, TMJ function normal Dentition: No loose teeth or bridges Possible difficult airway: No ASA Classification *see protocol: CLASS II-Mild systemic disease
[2018-05-09] MEDS ORDERED: 0.9 % Sodium Chloride 500 ML ONE (15:12)
--- NOTE | 2018-05-09 15:33 | IR Procedure Note ---
Date of procedure: 05/09/18 Consent Obtained: Verbal consent, Written consent Timeout: Correct patient and procedure verified, Correct site verified, Time out performed, Skin prep completed Local anesthetic: Lidocaine 1% Indications: Sternoclavicular joint infection Procedure Performed: Aspiration of the SC joint Was there an physicians assistant present: No Site/Technique: CT guided aspiration of right SC joint Results/Findings: 3 cc purulent fluid aspirated Estimated blood loss (cc): 2 Complications: None; Tolerated procedure well Post Procedure Treatment Plan: Continue inpatient care Specimen: 3 cc purulent fluid
--- NOTE | 2018-05-09 17:46 | Internal Med Progress Note ---
Hospitalist Progress Note - Encounter Date of Encounter: 05/09/18 Time of Encounter: 09:30 - Subjective Interval History: Ms Sims is currently admitted for sepsis related to MSSA. She remains moderate to high risk due to potential for worsening clinical status. Ms Sims is still having a lot of pain. She is to have aspiration of R SC joint today. Blood cultures positive and repeat returned positive today. No fever or chills. Tolerating IV Ancef. No CP or SOB. No cough. - Exam Vitals: Temp Pulse Resp BP Pulse Ox 99.5 F 109 16 168/65 98 05/09/18 17:19 05/09/18 17:06 05/09/18 17:06 05/09/18 17:06 05/09/18 17:06 Exam: Constitutional - alert. Appears comfortable currently. HEENT - PERRL. EOMI. Mucus membranes dry. Neck - Supple. Moves well today. Chest - R SC joint swollen and tender. No erythema noted. Cardio - Regular. Not tachycardic today. Respiratory - Clear bilaterally with good effort. Abdomen - soft. No tenderness today. No mass felt. Back - Remains tender to palpation as yesterday. Extremities - No edema noted on extremities. Equal pulses in all 4 extremities. Skin - no visible rashes, ulcers or other lesions. Neuro - Alert. Oriented. Moves all extremities though legs weaker than arms. - Assessment and Plan (1) Sepsis due to Staphylococcus aureus Current Visit: Yes Status: Acute Assessment and Plan: Pt admitted with concerns for R SC joint infection and has been found to be bacteremic with MSSA. Repeat cultures today are positive. Appreciate ID input. Currently on IV Ancef Will need GERTRUDE. Aspiration of R SC joint today. (2) Septic joint Current Visit: Yes Status: Acute Assessment and Plan: Pt with swelling and pain of R SC joint. To have aspiration today. Continue IV Ancef per ID service. (3) Hypertension Current Visit: Yes Status: Chronic Assessment and Plan: Pt with chronic hypertension Currently controlled with treatment. (4) Diabetes mellitus Current Visit: Yes Status: Chronic Assessment and Plan: Pt with hx of DM Blood sugars elevated due to infection. Continue coverage as ordered. (5) Anemia Current Visit: Yes Status: Suspected Assessment and Plan: Pt with anemia - most likely chronic inflammation related. Following H/H. (6) Discitis of lumbar region Current Visit: Yes Status: Suspected Assessment and Plan: Pt with back pain and neurologic symptoms. Xray suspicious for diskitis. Currently on IV Ancef - Time Spent with Patient Total time spent is greater than 50% in coordination of care (as documented) at patient's floor/unit and/or counseling patient: Internal Medicine: Result - Labs CBC & Chem 7: 05/09/18 05:25 05/09/18 05:25 Labs: Short CBC 05/09/18 Range/Units 05:25 WBC 11.7 H (4.3-11.1) K/mcL Hgb 7.0 L (11.5-15.4) g/dL Hct 22.0 L (35.3-44.9) % Plt Count 520 H (140-400) K/mcL Neutrophils # 8.9 (1.6-8.9) K/mcL BMP 05/09/18 05:25 Sodium 132 L Potassium 3.8 Chloride 97 L Carbon Dioxide 25 BUN 16 Creatinine 0.77 Glucose 183 H Calcium 8.9 - ABG Interpretation ABG results: ABG ABG pH 7.54 pH Units (7.32-7.45) H 05/07/18 16:08 ABG pCO2 27 mmHg (35-45) L 05/07/18 16:08 ABG pO2 97 mmHg (85-104) 05/07/18 16:08 ABG O2 Saturation 99 % (95-98) H 05/07/18 16:08 PT/INR, D-dimer PT 15.4 Seconds (9.4-12.1) H 05/08/18 16:04 Consult Discharge Plan - Plan Referrals: Kirby Ansari MD [Primary Care Provider] - (2) Septic joint Qualifiers: Septic arthritis location: shoulder Septic arthritis organism: staphylococcal Laterality: right Qualified Code(s): M00.011 - Staphylococcal arthritis, right shoulder (3) Hypertension Qualifiers: Hypertension type: essential hypertension Qualified Code(s): I10 - Essential (primary) hypertension (4) Diabetes mellitus Qualifiers: Diabetes mellitus type: type 2 Diabetes mellitus skilled nursing insulin use: without skilled nursing use Diabetes mellitus complication status: with hyperglycemia Qualified Code(s): E11.65 - Type 2 diabetes mellitus with hyperglycemia (5) Anemia Qualifiers: Anemia type: other cause Other causes of anemia: chronic disease, other Qualified Code(s): D63.8 - Anemia in other chronic diseases classified elsewhere
[2018-05-09] MEDS: Mirtazapine 15 MG TABLET PO SCH (20:25)
[2018-05-09] MEDS: 0.9 % Sodium Chloride 500 ML IVC SCH (22:30)
[2018-05-09] MEDS: ceFAZolin 2,000 MG in 0.9 % Sodium Chloride 100 ML IVPB SCH (23:50)
[2018-05-10] MEDS: 0.9 % Sodium Chloride 500 ML IVC SCH ×2 (04:26→23:41)
[2018-05-10] MEDS: tiZANidine 4 MG TABLET PO PRN ×3 (04:26→21:08)
[2018-05-10] MEDS: *HR* HYDROcodone/Acet 5/325 mg TABLET PO PRN ×3 (06:34→18:45)
--- NOTE | 2018-05-10 08:00 | Internal Med Progress Note ---
<Ling Cordoba R - Last Filed: 05/10/18 13:14> Hospitalist Progress Note - Encounter Date of Encounter: 05/10/18 Time of Encounter: 08:00 - Subjective Interval History: Pt states she is feeling better and in less pain. Eating breakfast during exam. Second set of BCx returned positive, a third set will be drawn this am. Echo ne gative for visible thrombus. Right SC joint drained without complication and pt having less chest pain after the procedure. Continue treatment with Ancef per ID. We will obtain a GERTRUDE to fully rule out endocarditis in this patient. - Exam Vitals: Temp Pulse Resp BP Pulse Ox 99.3 F 77 14 126/75 95 05/10/18 07:12 05/10/18 07:12 05/10/18 07:12 05/10/18 07:12 05/10/18 07:12 Exam: Constitutional - alert. Appears comfortable currently. HEENT - PERRL. EOMI. Mucus membranes dry. Neck - Supple. Moves well today. Chest - R SC joint tender with decreased edema. No erythema noted. Cardio - RRR, no audible murmurs. Respiratory - Clear bilaterally with good effort. Abdomen - soft. No tenderness today. No mass felt. Back - Remains tender to palpation as yesterday. Extremities - No edema noted on extremities. Equal pulses in all 4 extremities. Skin - no visible rashes, ulcers or other lesions. Neuro - Alert. Oriented. Moves all extremities though legs weaker than arms. - Assessment and Plan (1) Sepsis Current Visit: Yes Status: Acute Assessment and Plan: Pt febrile, tachycardic and with elevated WBC MRI shows possible septic SC joint, possible osteo of SC and l spine 1L fluid bolus, vanc and cipro - will continue to hydrate as sodium levels allow BC 04/14 positive for gm+ cocci - repeats drawn 05/08 also positive BCx drawn 05/[address] chest shows septic SC joint with likely septic emboli to lungs Echo negative for visible thrombi ID consulted - switch abx to Cefazolin Dr. Angeles to treat back pain conservatively Consulted IR for drainage of septic SC joint, completed 05/09 without complication (2) Septic joint Current Visit: Yes Status: Acute Assessment and Plan: Visualized on MRI - right sternoclavicular joint Right SC joint inflammation on exam with tenderness to palpation CT scan with contrast shows septic joint vs arthritis with extravasation surrounding, along with pulmonary nodules concerning for septic emboli Dr. Duenas consulted - appreciate recs IR tapped on 05/09 Abx Cefazolin day 3 (3) Cauda equina syndrome Current Visit: Yes Status: Ruled-out Assessment and Plan: Partial compression seen on MRI Dr. Angeles to treat conservatively - he states he does not believe this is cauda equina syndrome Pain management Q4H neuro checks (4) Discitis of lumbar region Current Visit: Yes Status: Suspected Assessment and Plan: Seen on MRI - partial compression of the cauda equina Pt with LE weakness and one episode of urinary incontinence Plan as #3 above (5) Osteomyelitis Current Visit: Yes Status: Acute Assessment and Plan: Visualized on MRI - lumbar spine L spine tenderness to palpation Plan as above (6) Diabetes mellitus Current Visit: Yes Status: Chronic Assessment and Plan: Will place on low dose SSI cont to monitor (7) Hyponatremia Current Visit: Yes Status: Acute Assessment and Plan: New onset hyponatremia of 130 Partially correctable with BG Will bolus 1L with normal saline and recheck Q4 neuro and sodium checks Will obtain urine lytes total of 3L given Sodium stable without changes in mental status DC fluids Urine lytes wnl (8) Anemia Current Visit: Yes Status: Suspected Assessment and Plan: H&H 8.124.8 - on admission No Hx of anemia Denies hematuria, hematochezia, and hemetemesis Reports daily nose bleeds Iron panel, ferritin, B12 and folate are suggestive of anemia of chronic disease Stool guiac pending Cont to monitor Hemoglobin dropped to 7.0 on 05/09 Will recheck H&H Type and screen completed - transfuse as needed for less than 7 Pt remains asymptomatic (9) Hypertension Current Visit: Yes Status: Chronic Assessment and Plan: Hypertensive in ED - BPs now normal Likely secondary to pain Cont home medications and pain control (10) DVT prophylaxis Current Visit: Yes Status: Acute Assessment and Plan: EPCDs due to anemia - Time Spent with Patient Total time spent is greater than 50% in coordination of care (as documented) at patient's floor/unit and/or counseling patient: Internal Medicine: Result - Labs CBC & Chem 7: 05/09/18 05:25 05/09/18 05:25 - ABG Interpretation ABG results: ABG ABG pH 7.54 pH Units (7.32-7.45) H 05/07/18 16:08 ABG pCO2 27 mmHg (35-45) L 05/07/18 16:08 ABG pO2 97 mmHg (85-104) 05/07/18 16:08 ABG O2 Saturation 99 % (95-98) H 05/07/18 16:08 PT/INR, D-dimer PT 15.4 Seconds (9.4-12.1) H 05/08/18 16:04 - Impressions Impressions Lumbar Spine MRI 05/07/18 10:40 IMPRESSION: 1. Severe spinal canal stenosis at L4-5 with mass effect on the cauda equina. This is secondary to grade 1 anterolisthesis, facet degenerative changes, and disc osteophyte complex. There is endplate edema at this level, likely degenerative in nature with associated enhancement. Clinical correlation with symptoms of cauda equina syndrome is recommended. 2. Multiple levels of endplate edema throughout lumbar spine, without evidence of endplate destruction, or fluid signal within the disc space. There is also associated enhancement, most prominent at L4-5. These are favored to represent degenerative edema and enhancement. However, clinical correlation is recommended to exclude less likely possibility of early discitis or osteomyelitis should be considered. Follow-up may be obtained as clinically warranted. 3. Diffusely T1 hypointense marrow signal. Differential includes marrow involving or marrow replacing processes, including anemia, smoking, obesity, or osteopenia. 4. Please see separate report for MRI cervical spine and MRI thoracic spine. D/ / 05/07/2018 14:27:34 Steffen Roman MD / wilman Interpreting Provider: Steffen Roman MD Cervical Spine MRI 05/07/18 10:41 IMPRESSION: 1. Partially imaged edema and inflammation involving the right sternoclavicular junction. Differential includes septic arthritis, osteomyelitis, and/or neoplastic process. Recommend further evaluation with CT chest with contrast. 2. Multilevel degenerative changes of cervical spine with varying degrees of spinal canal stenosis and neural foraminal stenosis, as detailed above. No evidence of abnormal T2 signal within the spinal cord. No evidence of epidural abscess. 3. Diffusely T1 hypointense marrow signal, without STIR hyperintense or enhancing osseous lesions within cervical spine. This may represent marrow involving or marrow replacing processes such as anemia, smoking, obesity, or osteopenia. D/ / 05/07/2018 14:25:02 Steffen Roman MD / earnold Interpreting Provider: Steffen Roman MD Consult Discharge Plan - Plan Referrals: Kirby forrest MD [Primary Care Provider] - <Shiva Higgins - Last Filed: 05/10/18 17:38> Hospitalist Progress Note - Encounter Date of Encounter: 05/10/18 - Exam Vitals: Temp Pulse Resp BP Pulse Ox 98.3 F 77 18 104/55 97 05/10/18 16:09 05/10/18 16:09 05/10/18 16:09 05/10/18 16:09 05/10/18 16:09 - Assessment and Plan (1) Sepsis due to Staphylococcus aureus Current Visit: Yes Status: Acute (2) Septic joint Current Visit: Yes Status: Acute (3) Hypertension Current Visit: Yes Status: Chronic (4) Diabetes mellitus Current Visit: Yes Status: Chronic (5) Anemia Current Visit: Yes Status: Suspected (6) Discitis of lumbar region Current Visit: Yes Status: Suspected - Time Spent with Patient Total time spent is greater than 50% in coordination of care (as documented) at patient's floor/unit and/or counseling patient: Internal Medicine: Result - Labs CBC & Chem 7: 05/09/18 05:25 05/09/18 05:25 - ABG Interpretation ABG results: ABG ABG pH 7.54 pH Units (7.32-7.45) H 05/07/18 16:08 ABG pCO2 27 mmHg (35-45) L 05/07/18 16:08 ABG pO2 97 mmHg (85-104) 05/07/18 16:08 ABG O2 Saturation 99 % (95-98) H 05/07/18 16:08 PT/INR, D-dimer PT 15.4 Seconds (9.4-12.1) H 05/08/18 16:04 - Impressions Impressions Lumbar Spine MRI 05/07/18 10:40 IMPRESSION: 1. Severe spinal canal stenosis at L4-5 with mass effect on the cauda equina. This is secondary to grade 1 anterolisthesis, facet degenerative changes, and disc osteophyte complex. There is endplate edema at this level, likely degenerative in nature with associated enhancement. Clinical correlation with symptoms of cauda equina syndrome is recommended. 2. Multiple levels of endplate edema throughout lumbar spine, without evidence of endplate destruction, or fluid signal within the disc space. There is also associated enhancement, most prominent at L4-5. These are favored to represent degenerative edema and enhancement. However, clinical correlation is recommended to exclude less likely possibility of early discitis or osteomyelitis should be considered. Follow-up may be obtained as clinically warranted. 3. Diffusely T1 hypointense marrow signal. Differential includes marrow involving or marrow replacing processes, including anemia, smoking, obesity, or osteopenia. 4. Please see separate report for MRI cervical spine and MRI thoracic spine. D/ / 05/07/2018 14:27:34 Steffen Roman MD / wilman Interpreting Provider: Steffen Roman MD Cervical Spine MRI 05/07/18 10:41 IMPRESSION: 1. Partially imaged edema and inflammation involving the right sternoclavicular junction. Differential includes septic arthritis, osteomyelitis, and/or neoplastic process. Recommend further evaluation with CT chest with contrast. 2. Multilevel degenerative changes of cervical spine with varying degrees of spinal canal stenosis and neural foraminal stenosis, as detailed above. No evidence of abnormal T2 signal within the spinal cord. No evidence of epidural abscess. 3. Diffusely T1 hypointense marrow signal, without STIR hyperintense or enhancing osseous lesions within cervical spine. This may represent marrow involving or marrow replacing processes such as anemia, smoking, obesity, or osteopenia. D/ / 05/07/2018 14:25:02 Steffen Roman MD / chema Interpreting Provider: Steffen Roman MD Needle Aspiration CT 05/09/18 00:00 IMPRESSION: Successful CT guided fluid aspiration surrounding the right sternoclavicular joint. D/ / Nomi Harris MD / Nomi Harris MD Interpreting Provider: Nomi Harris MD - Attending Attestation I examined this patient and my medical decision-making was reviewed with the Resident Physician on 05/10/18. I agree with the documented findings, disposition and treatment plan as described except to the extent set forth below. Ms Sims is currently admitted for sepsis related to MSSA. She remains moderate to high risk due to potential for worsening clinical status. Ms Sims is up to couch. Pain is somewhat better today. No fever or chills. No CP or SOB. Has had some fevers after aspiration yesterday. No GI issues. Exam alert Comfortable in chair. Mucus membranes dry Heart reg and slightly tachy No wheeze abd soft No edema I/P 1. MSSA sepsis/bacteremia - on IV ancef. GERTRUDE ordered. 2. Probable SC joint infection/osteomyelitis 3. Probable diskitis Further diagnoses and plan as above Awaiting final plans for IV abx. For rehab. <Ling Cordoba R - Last Filed: 05/10/18 13:14> (1) Sepsis Qualifiers: Sepsis type: methicillin susceptible Staphylococcus aureus Qualified Code(s): A41.01 - Sepsis due to Methicillin susceptible Staphylococcus aureus (2) Septic joint Qualifiers: Septic arthritis location: shoulder Septic arthritis organism: staphylococcal Laterality: right Qualified Code(s): M00.011 - Staphylococcal arthritis, right shoulder (5) Osteomyelitis Qualifiers: Osteomyelitis type: unspecified type Osteomyelitis location: unspecified site Qualified Code(s): M86.9 - Osteomyelitis, unspecified (6) Diabetes mellitus Qualifiers: Diabetes mellitus type: type 2 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 Diabetes mellitus complication status: with hyperglycemia Qualified Code(s): E11.65 - Type 2 diabetes mellitus with hyperglycemia (8) Anemia Qualifiers: Anemia type: other cause Other causes of anemia: chronic disease, other Qualified Code(s): D63.8 - Anemia in other chronic diseases classified elsewhere (9) Hypertension Qualifiers: Hypertension type: essential hypertension Qualified Code(s): I10 - Essential (primary) hypertension <Shiva Higgins - Last Filed: 05/10/18 17:38> (2) Septic joint Qualifiers: Septic arthritis location: shoulder Septic arthritis organism: staphylococcal Laterality: right Qualified Code(s): M00.011 - Staphylococcal arthritis, right shoulder (3) Hypertension Qualifiers: Hypertension type: essential hypertension Qualified Code(s): I10 - Essential (primary) hypertension (4) Diabetes mellitus Qualifiers: Diabetes mellitus type: 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
[2018-05-10] MEDS: Lisinopril-HCTZ 20-12.5mg TABLET PO SCH (09:08)
[2018-05-10] MEDS: ceFAZolin 2,000 MG in 0.9 % Sodium Chloride 100 ML IVPB SCH ×3 (09:14→23:41)
[2018-05-10] MEDS: Insulin LISPRO 300 UNITS/3 ML VIAL SQ SCH ×3 (09:16→16:41)
--- NOTE | 2018-05-10 11:40 | Infectious Disease Progress No ---
Date of Encounter: 05/10/18 Time of Encounter: 09:50 - Assessment and Plan (1) Sepsis due to Staphylococcus aureus Current Visit: Yes Status: Acute Improving 4 SIRS criteria on admission without associated lactic acidosis or end organ damage -secondary to MSSA bacteremia -source unknown -Afebrile this morning, one episode of fever 101.1F the prior evening, hemodynamically stable -CBC pending 05/07/18 Culture x2- S. aureus -Sensitive: oxacillin, vancomycin, levo, cipro, daptomycin; Resistance: clindamycin, erythromycin 05/08/18 Culture x2- S. aureus Plan: -05/10/18 Culture- pending -Continue cefazolin 2g q8H (2) MSSA bacteremia Current Visit: Yes Status: Acute 05/07/18 Culture- S. aureus -Sensitive: oxacillin, vancomycin, levo, cipro, daptomycin; Resistance: clindamycin, erythromycin 05/08/18 Culture- S. aureus source not clear complicated; patient has hardware in bilateral feet from previous surgeries and septic arthritis of the R sternoclavicular joint and maybe right shoulder exam with no other minor López's Criteria TTE 05/08: LVEF 60%, No valvular vegetations visualized, Mild mitral regurg, Mild-moderate tricuspid regurg Plan: -Continue cefazolin 2 grams q8hrs -duration of treatment at least 6 weeks -Midline once blood cultures negative for 48 hours -Plan GERTRUDE prior to d/c -Monitor labs and for drug toxicity (3) Osteomyelitis Current Visit: Yes Status: Acute On exam, patient has warmth and exquisite tenderness to palpation of R medial clavicular head and R pectoral area CT chest 05/08: Inflammation centered at the right sternoclavicular joint is favored to represent septic arthritis with osteomyelitis. Etiology likely MSSA given positive blood cultures 05/07 and 05/08 Arthrocentesis of R SC joint performed, significant for 3 cc purulent fluid; sample not submitted for culture or analysis. Plan: -As above, expected course at least 6 weeks Qualifiers: Qualified Code(s): M86.9 - Osteomyelitis, unspecified (4) Septic joint Current Visit: Yes Status: Acute On exam, pain upon active and passive motion of RUE, decreased ROM, warmth and exquisite tenderness to palpation of R SC joint and R pectoral area. CT chest 05/08: Inflammation centered at the right sternoclavicular joint is favored to represent septic arthritis with osteomyelitis. causative organism likely mssa Aspiration of R SC joint- volume of 3cc purulent, cytology and culture pending Plan: -Continue cefazolin 2 grams [id number] -monitor labs and for drug toxicity Qualifiers: Qualified Code(s): M00.011 - Staphylococcal arthritis, right shoulder (5) Urinary incontinence Current Visit: Yes Status: Acute secondary to cauda equina syndrome; no subsequent episodes -spine surgery following Qualifiers: Qualified Code(s): R32 - Unspecified urinary incontinence (6) Diabetes mellitus Current Visit: Yes Status: Chronic POC Glucose 191. -Management per primary team. Qualifiers: Qualified Code(s): E11.65 - Type 2 diabetes mellitus with hyperglycemia (7) Hypertension Current Visit: Yes Status: Chronic BP 126/75, stable. -Management per primary team. Qualifiers: Qualified Code(s): I10 - Essential (primary) hypertension (8) Cauda equina syndrome Current Visit: Yes Status: Ruled-out No acute changes. -Surgery consulted (9) Spondylolisthesis at L4-L5 level Current Visit: Yes Status: Chronic No acute changes. -Surgery consulted (10) Decubital ulcer Current Visit: Yes Status: Acute Mild erythema with callus in sacral area, no open ulcers. -Pressure bandage in place -Management per primary team Qualifiers: Qualified Code(s): L89.90 - Pressure ulcer of unspecified site, unspecified stage - Subjective Interval history: Patient seen and examined at bedside this morning. She is in no acute distress but she admits an episode of chills and night sweats with fever the prior evening as well as some fatigue. She endorses constipation however still has flatus, no abdominal pain. Her LLE and R shoulder pain is improved however the R medial clavicular head and the area extending to the pectoral area and SCM is exquisitely tender to palpation and active motion. She denies headache, chest pain, cough, dyspnea, nausea, vomiting, diarrhea, vaginal discharge, rashes. Infect Dis PN-Objective Data - Labs CBC & Chem 7: 05/11/18 01:25 05/11/18 08:00 Labs: Laboratory Results - last 24 hr 05/09/18 05/09/18 11:53 17:00 POC Glucose 189 H 156 H Cultures: Cultures 05/08/18 09:10 Blood Culture - Final Peripheral Venipuncture Staphylococcus aureus 05/08/18 09:16 Blood Culture - Final Peripheral Venipuncture Staphylococcus aureus 05/07/18 16:08 Blood Culture - Final Peripheral Venipuncture Staphylococcus aureus 05/10/18 04:50 Blood Culture - Preliminary Peripheral Venipuncture Culture is incubating and being continuously monitored for growth. Final report to follow. 05/10/18 04:57 Blood Culture - Preliminary Peripheral Venipuncture Culture is incubating and being continuously monitored for growth. Final report to follow. 05/07/18 16:13 Blood Culture - Preliminary Peripheral Venipuncture Staphylococcus aureus Serology 05/08/18 05/08/18 05/07/18 Range/Units 06:52 06:52 16:08 Urine Color (Yellow) Urine Clarity (Clear) Urine pH (5.0-8.0) pH Units Ur Specific Watkins (1.010-1.025) Urine Protein (Neg-Trace) mg/dL Urine Glucose (UA) (Normal) mg/dL Urine Ketones (Negative) mg/dL Urine Blood (Negative) Urine Nitrite (Negative) Urine Bilirubin (Negative) Urine Urobilinogen (Normal) mg/dL Ur Leukocyte Esterase (Negative) Urine Microscopic RBC (0-3) per hpf Urine Microscopic WBC (0-3) per hpf Ur Squamous Epith Cells (None-Few) per lpf Urine Bacteria (None-Few) per hpf Hyaline Casts (None-Few) per lpf Ur Culture Indicated? (NO) Urine Osmolality 310 (300-1090) mOsm/kg Urine Sodium 58.6 mEq/L Urine Chloride 74 mEq/L A. baumannii (PCR) Not Detected (Not Detect) Sanaz albicans (PCR) Not Detected (Not Detect) C. glabrata (PCR) Not Detected (Not Detect) C. krusei (PCR) Not Detected (Not Detect) C. parapsilosis (PCR) Not Detected (Not Detect) C. tropicalis (PCR) Not Detected (Not Detect) Enterobacteriac sp PCR Not Detected (Not Detect) E. cloacae complex PCR Not Detected (Not Detect) Enterococcus sp PCR Not Detected (Not Detect) E. coli (PCR) Not Detected (Not Detect) H. influenzae (PCR) Not Detected (Not Detect) Klebsiella oxytoca PCR Not Detected (Not Detect) Klebsiella pneumoniae Not Detected (Not Detect) List. monocytogenes PCR Not Detected (Not Detect) N. meningitidis (PCR) Not Detected (Not Detect) Proteus species (PCR) Not Detected (Not Detect) Serratia marcescens PCR Not Detected (Not Detect) Staphylococcus sp PCR DETECTED A (Not Detect) Staph aureus (PCR) DETECTED A (Not Detect) mecA-Methicil Res Gene Not Detected (Not Detect) Streptococcus sp PCR Not Detected (Not Detect) Group A Strep DNA Not Detected (Not Detect) Group B Strep (PCR) Not Detected (Not Detect) Strep pneumoniae (PCR) Not Detected (Not Detect) P. aeruginosa (PCR) Not Detected (Not Detect) Isela/B-Vanco Res Genes Not Detected (Not Detect) KPC (blaKPC) Detect PCR Not Detected (Not Detect) 05/07/18 Range/Units 11:34 Urine Color Yellow (Yellow) Urine Clarity Clear (Clear) Urine pH 6.0 (5.0-8.0) pH Units Ur Specific Watkins 1.030 H (1.010-1.025) Urine Protein 30 H (Neg-Trace) mg/dL Urine Glucose (UA) 500 H (Normal) mg/dL Urine Ketones 40 H (Negative) mg/dL Urine Blood Negative (Negative) Urine Nitrite Negative (Negative) Urine Bilirubin Negative (Negative) Urine Urobilinogen Normal (Normal) mg/dL Ur Leukocyte Esterase Negative (Negative) Urine Microscopic RBC 0-3 (0-3) per hpf Urine Microscopic WBC 5-15 H (0-3) per hpf Ur Squamous Epith Cells Many H (None-Few) per lpf Urine Bacteria None Seen (None-Few) per hpf Hyaline Casts None Seen (None-Few) per lpf Ur Culture Indicated? NO (NO) Urine Osmolality (300-1090) mOsm/kg Urine Sodium mEq/L Urine Chloride mEq/L A. baumannii (PCR) (Not Detect) Sanaz albicans (PCR) (Not Detect) C. glabrata (PCR) (Not Detect) C. krusei (PCR) (Not Detect) C. parapsilosis (PCR) (Not Detect) C. tropicalis (PCR) (Not Detect) Enterobacteriac sp PCR (Not Detect) E. cloacae complex PCR (Not Detect) Enterococcus sp PCR (Not Detect) E. coli (PCR) (Not Detect) H. influenzae (PCR) (Not Detect) Klebsiella oxytoca PCR (Not Detect) Klebsiella pneumoniae (Not Detect) List. monocytogenes PCR (Not Detect) N. meningitidis (PCR) (Not Detect) Proteus species (PCR) (Not Detect) Serratia marcescens PCR (Not Detect) Staphylococcus sp PCR (Not Detect) Staph aureus (PCR) (Not Detect) mecA-Methicil Res Gene (Not Detect) Streptococcus sp PCR (Not Detect) Group A Strep DNA (Not Detect) Group B Strep (PCR) (Not Detect) Strep pneumoniae (PCR) (Not Detect) P. aeruginosa (PCR) (Not Detect) Isela/B-Vanco Res Genes (Not Detect) KPC (blaKPC) Detect PCR (Not Detect) - Impressions Impressions Lumbar Spine MRI 05/07/18 10:40 IMPRESSION: 1. Severe spinal canal stenosis at L4-5 with mass effect on the cauda equina. This is secondary to grade 1 anterolisthesis, facet degenerative changes, and disc osteophyte complex. There is endplate edema at this level, likely degenerative in nature with associated enhancement. Clinical correlation with symptoms of cauda equina syndrome is recommended. 2. Multiple levels of endplate edema throughout lumbar spine, without evidence of endplate destruction, or fluid signal within the disc space. There is also associated enhancement, most prominent at L4-5. These are favored to represent degenerative edema and enhancement. However, clinical correlation is recommended to exclude less likely possibility of early discitis or osteomyelitis should be considered. Follow-up may be obtained as clinically warranted. 3. Diffusely T1 hypointense marrow signal. Differential includes marrow involving or marrow replacing processes, including anemia, smoking, obesity, or osteopenia. 4. Please see separate report for MRI cervical spine and MRI thoracic spine. D/ / 05/07/2018 14:27:34 Steffen Roman MD / wilman Interpreting Provider: Steffen Roman MD Cervical Spine MRI 05/07/18 10:41 IMPRESSION: 1. Partially imaged edema and inflammation involving the right sternoclavicular junction. Differential includes septic arthritis, osteomyelitis, and/or neoplastic process. Recommend further evaluation with CT chest with contrast. 2. Multilevel degenerative changes of cervical spine with varying degrees of spinal canal stenosis and neural foraminal stenosis, as detailed above. No evidence of abnormal T2 signal within the spinal cord. No evidence of epidural abscess. 3. Diffusely T1 hypointense marrow signal, without STIR hyperintense or enhancing osseous lesions within cervical spine. This may represent marrow involving or marrow replacing processes such as anemia, smoking, obesity, or osteopenia. D/ / 05/07/2018 14:25:02 Steffen Roman MD / earnold Interpreting Provider: Steffen Roman MD Exam - Constitutional Vitals: Temp Pulse Resp BP Pulse Ox 99.1 F 87 16 104/62 95 05/10/18 08:22 05/10/18 08:22 05/10/18 08:22 05/10/18 08:22 05/10/18 08:22 Exam: GENERAL: Appears as stated age, in no acute distress HEAD: Normocephalic, atraumatic ENT:PERRL, EOMI, oral mucosa dry, some dental work present, no lesions or dentures RESPIRATORY: CTA purnima, no wheezes, rales, rhonchi CHEST: TENDERNESS OVER THE STERNOCLAVICULAR JOINT CARDIAC: RRR, +3/6 Systolic murmur over tricuspid area, Normal S1 and S2, without gallops, or rubs EXTREMITIES: No peripheral edema, pulses intact purnima ABDOMEN: soft, BSx4, mild tenderness to palpation of purnima lower quadrants MUSCULOSKELETAL: full ROM purnima extremities, R shoulder limited ROM at extremes during active and passive motion, pain with resisted shoulder raise and abduction, warmth and edema present at R medial clavicular head, Extremities without clubbing, cyanosis or edema.Tenderness to palpation of low back approx. L4 NEUROLOGIC EXAM:No focal deficits,StrengthRUE - 4/5, LUE 5/5, RLE - 4/5, LLE - 4/5, Sensation symmetric of purnima UE, Decreased sensation LLE vs RLE over anterior leg, normal sensation posterior and lateral legs purnima PSYCHIATRIC: Normal mood SKIN: Bandage in place over mildly erythematous area of sacrum, no open lesions.; no appreciable [place] lesions, Osler nodes, splinter hemorrhages Consult Discharge Plan - Plan Referrals: Kirby Ansari MD [Primary Care Provider] - - Attending Attestation I examined this patient and my medical decision-making was reviewed with the Resident Physician. I agree with the documented findings, disposition and treatment plan as described except to the extent set forth below. A/P: sepsis MSSA bacteremia wit hseptic emboli to claviculosternal joint and possible septic arthritis or right shoulder quada equina syndrome osteomyelitis of the clavicle urinary incontinence Recommendations await fluid analysis and cultures from shoulder aspiration continue cefazolin 2 grams q 8 duration of treatment likely 6 weeks await GERTRUDE monitor labs and for drug toxicity
[2018-05-10] MEDS: Mirtazapine 15 MG TABLET PO SCH (21:08)
[2018-05-11] MEDS: *HR* HYDROcodone/Acet 5/325 mg TABLET PO PRN ×4 (01:17→20:33)
[2018-05-11 01:38] LABS: Basophils % 0.3 %; Eosinophils # 0.2 K/mcL (0.0-0.6); Eosinophils % 2.2 %; Hematocrit 21.1 % (35.3-44.9); Hemoglobin 6.7 g/dL (11.5-15.4); Immature Granulocytes % 0.9 % (0-4); Lymphocytes # 1.7 K/mcL (0.6-4.6); Lymphocytes % 17.6 %; Mean Corpuscular HGB Conc 31.8 g/dL (31.6-35.5); Mean Corpuscular Volume 85.1 fL (83.0-100.0); Mean Platelet Volume 9.4 fL (9.4-12.4); Monocytes % 10.4 %; Neutrophils # 6.6 K/mcL (1.6-8.9); Platelet Count 519 K/mcL (140-400); Red Blood Count 2.48 M/mcL (3.82-4.97); Red Cell Distribution Width 13.2 % (11.5-14.5); Segmented Neutrophils % 68.6 %
[2018-05-11 01:57] LABS: BUN/Creatinine Ratio 16 (6-26); Blood Urea Nitrogen 10 mg/dL (8-23); Calcium 8.3 mg/dL (8.6-10.3); Carbon Dioxide 25 mEq/L (23-29); Chloride 100 mEq/L (98-107); Glucose 172 mg/dL (70-105); Osmolality,Calculated 267 (280-300); Potassium 3.5 mEq/L (3.5-5.1); Sodium 127 mEq/L (136-145); eGFR For Non-African Americans > 60 (> 60)
[2018-05-11] MEDS: tiZANidine 4 MG TABLET PO PRN ×3 (05:47→22:20)
[2018-05-11] MEDS: 0.9 % Sodium Chloride 500 ML IVC SCH (06:23)
[2018-05-11] MEDS: ceFAZolin 2,000 MG in 0.9 % Sodium Chloride 100 ML IVPB SCH ×2 (07:32→16:53)
[2018-05-11] MEDS: Lisinopril-HCTZ 20-12.5mg TABLET PO SCH (07:33)
[2018-05-11] MEDS: Insulin LISPRO 300 UNITS/3 ML VIAL SQ SCH ×3 (07:33→16:54)
[2018-05-11] MEDS ORDERED: Lidocaine Viscous Oral Soln 15 ML SOLUTION MM PRN (08:15)
[2018-05-11] MEDS ORDERED: 0.9 % Sodium Chloride 500 ML IVC ONE (08:16)
[2018-05-11] MEDS ORDERED: Tetracaine/Benzocaine/Butamben 1 SPRAY AEROSOL MM ONE (08:16)
[2018-05-11 08:33] LABS: Alanine Aminotransferase 31 Units/L (7-52); Albumin 2.5 g/dL (3.5-5.7); Albumin/Globulin Ratio 0.7 (1.1-2.2); Alkaline Phosphatase 73 Units/L (34-104); Aspartate Amino Transferase 30 Units/L (13-39); BUN/Creatinine Ratio 18 (6-26); Bilirubin,Direct 0.2 mg/dL (0.0-0.2); Bilirubin,Indirect 0.3 mg/dL (0.0-1.2); Bilirubin,Total 0.5 mg/dL (0.3-1.0); Blood Urea Nitrogen 9 mg/dL (8-23); Calcium 8.3 mg/dL (8.6-10.3); Carbon Dioxide 24 mEq/L (23-29); Chloride 102 mEq/L (98-107); Globulin 3.6 g/dL (2.4-3.5); Glucose 182 mg/dL (70-105); Osmolality,Calculated 271 (280-300); Potassium 3.7 mEq/L (3.5-5.1); Sodium 129 mEq/L (136-145); Total Protein 6.1 g/dL (6.4-8.9); eGFR For Non-African Americans > 60 (> 60)
[2018-05-11] MEDS: *HR* Midazolam HCl 5 MG/5 ML VIAL IVP PRN ×3 (08:50→09:00)
[2018-05-11] MEDS: *HR* FentaNYL (PF) 100 MCG/2 ML VIAL IVP PRN ×3 (08:50→09:00)
--- NOTE | 2018-05-11 09:21 | Infectious Disease Progress No ---
Date of Encounter: 05/11/18 Time of Encounter: 10:20 - Assessment and Plan (1) Sepsis due to Staphylococcus aureus Current Visit: Yes Status: Acute Resolved 4 SIRS criteria on admission without associated lactic acidosis or end organ damage -secondary to MSSA bacteremia -source unknown Afebrile, Leukocytosis resolved as WBC 9.7, Normal HR and RR, hemodynamically stable 05/07/18 Culture x2- S. aureus -Sensitive: oxacillin, vancomycin, levo, cipro, daptomycin; Resistance: clindamycin, erythromycin 05/08/18 Culture x2- S. aureus 05/10/18 Culture x2- preliminary, Gram positive cocci Plan: -Continue cefazolin 2g q8H (2) MSSA bacteremia Current Visit: Yes Status: Acute 05/07/18 Blood Culture- x2 S. aureus -Sensitive: oxacillin, vancomycin, levo, cipro, daptomycin; Resistance: cl indamycin, erythromycin 05/08/18 Blood Culture- x2 S. aureus 05/10/18 Blood Culture- preliminary, x2 Gram positive cocci -source not clear -complicated; patient has hardware in bilateral feet from previous surgeries and septic arthritis of the R sternoclavicular joint and maybe right shoulder -exam with no other minor López's Criteria TTE 05/08: LVEF 60%, No valvular vegetations visualized, Mild mitral regurg, Mild-moderate tricuspid regurg GERTRUDE 05/11: LVEF 65%, No vegetations visualized, Mild mitral regurg, Mild-moderate tricuspid regurg, Normal LV and RV Plan: -Continue cefazolin 2 grams q8hrs -duration of treatment at least 6 weeks -Midline once blood cultures negative for 48 hours -Monitor labs and for drug toxicity (3) Osteomyelitis Current Visit: Yes Status: Acute On exam, patient has warmth and exquisite tenderness to palpation of R medial clavicular head and R pectoral area with limitation of active ROM but mostly normal passive ROM CT chest 05/08: Inflammation centered at the right sternoclavicular joint is favored to represent septic arthritis with osteomyelitis. Etiology likely MSSA given positive blood cultures 05/07 and 05/08 Arthrocentesis of R SC joint performed, significant for 3 cc purulent fluid; sample not submitted for culture or analysis. Plan: -As above, expected course at least 6 weeks Qualifiers: Osteomyelitis type: unspecified type Osteomyelitis location: unspecified site Qualified Code(s): M86.9 - Osteomyelitis, unspecified (4) Septic joint Current Visit: Yes Status: Acute On exam, pain upon active and passive motion of RUE, decreased ROM, warmth and exquisite tenderness to palpation of R SC joint and R pectoral area. Etiology likely MSSA given positive blood cultures 05/07 and 05/08, preliminary 05/10 of Gram positive cocci CT chest 05/08: Inflammation centered at the right sternoclavicular joint is favored to represent septic arthritis with osteomyelitis. Aspiration of R SC joint- volume of 3cc purulent, sample not sent for cytology and culture Plan: -Continue cefazolin 2 grams [id number] -monitor labs and for drug toxicity Qualifiers: Septic arthritis location: shoulder Septic arthritis organism: staphylococcal Laterality: right Qualified Code(s): M00.011 - Staphylococcal arthritis, right shoulder (5) Urinary incontinence Current Visit: Yes Status: Acute Secondary to cauda equina syndrome; no subsequent episodes -spine surgery following Qualifiers: Urinary Incontinence type: unspecified incontinence Qualified Code(s): R32 - Unspecified urinary incontinence (6) Diabetes mellitus Current Visit: Yes Status: Chronic Glucose 172. -Management per primary team. Qualifiers: Diabetes mellitus type: type 2 Diabetes mellitus group home insulin use: without group home use Diabetes mellitus complication status: with hyperglycemia Qualified Code(s): E11.65 - Type 2 diabetes mellitus with hyperglycemia (7) Hypertension Current Visit: Yes Status: Chronic BP 104/55, stable. -Management per primary team. Qualifiers: Hypertension type: essential hypertension Qualified Code(s): I10 - Essential (primary) hypertension (8) Cauda equina syndrome Current Visit: Yes Status: Ruled-out No acute changes. -Surgery consulted (9) Spondylolisthesis at L4-L5 level Current Visit: Yes Status: Chronic No acute changes. -Surgery consulted (10) Decubital ulcer Current Visit: Yes Status: Acute No acute change; Mild erythema with callus in sacral area, no open ulcers. -Pressure bandage in place -Management per primary team Qualifiers: Pressure injury location: unspecified location Pressure injury stage: unspecified pressure injury stage Qualified Code(s): L89.90 - Pressure ulcer of unspecified site, unspecified stage - Subjective Interval history: Patient seen and examined at bedside this morning. She is in no acute distress but she admits persisting fatigue and generalized weakness. She endorses some mild throat pain s/p GERTRUDE. The pain at the R medial clavicular head and the area extending to the pectoral area is about the same with tenderness to palpation and active motion however not as much pain with passive ROM as before. She denies headache, chest pain, cough, dyspnea, nausea, vomiting, diarrhea, abdominal pain, vaginal discharge, rashes. Infect Dis PN-Objective Data - Labs CBC & Chem 7: 05/11/18 01:25 05/11/18 08:00 Labs: Laboratory Results - last 24 hr 05/08/18 05/09/18 05/10/18 05:40 21:08 07:37 WBC RBC Hgb Hct MCV MCH MCHC RDW Plt Count MPV Immature Gran % Seg Neutrophils % Lymphocytes % Monocytes % Eosinophils % Basophils % Neutrophils # Lymphocytes # Monocytes # Eosinophils # Basophils # Sodium Potassium Chloride Carbon Dioxide BUN Creatinine Est GFR ( Amer) Est GFR (Non-Af Amer) BUN/Creatinine Ratio Glucose POC Glucose 248 H 191 H Calculated Osmolality Calcium Total Bilirubin Direct Bilirubin Indirect Bilirubin AST ALT Alkaline Phosphatase Serum Total Protein Albumin Globulin Albumin/Globulin Ratio Blood Type A POSITIVE Antibody Screen NEGATIVE Crossmatch See Detail 05/10/18 05/10/18 05/10/18 11:44 16:06 19:01 WBC RBC Hgb Hct MCV MCH MCHC RDW Plt Count MPV Immature Gran % Seg Neutrophils % Lymphocytes % Monocytes % Eosinophils % Basophils % Neutrophils # Lymphocytes # Monocytes # Eosinophils # Basophils # Sodium Potassium Chloride Carbon Dioxide BUN Creatinine Est GFR ( Amer) Est GFR (Non-Af Amer) BUN/Creatinine Ratio Glucose POC Glucose 232 H 155 H 214 H Calculated Osmolality Calcium Total Bilirubin Direct Bilirubin Indirect Bilirubin AST ALT Alkaline Phosphatase Serum Total Protein Albumin Globulin Albumin/Globulin Ratio Blood Type Antibody Screen Crossmatch 05/11/18 05/11/18 05/11/18 01:25 01:25 08:00 WBC 9.7 RBC 2.48 L Hgb 6.7 L Hct 21.1 L MCV 85.1 MCH 27.0 L MCHC 31.8 RDW 13.2 Plt Count 519 H MPV 9.4 Immature Gran % 0.9 Seg Neutrophils % 68.6 Lymphocytes % 17.6 Monocytes % 10.4 Eosinophils % 2.2 Basophils % 0.3 Neutrophils # 6.6 Lymphocytes # 1.7 Monocytes # 1.0 Eosinophils # 0.2 Basophils # 0.0 Sodium 127 L 129 L Potassium 3.5 3.7 Chloride 100 102 Carbon Dioxide 25 24 BUN 10 9 Creatinine 0.61 0.50 L Est GFR ( Amer) > 60 > 60 Est GFR (Non-Af Amer) > 60 > 60 BUN/Creatinine Ratio 16 18 Glucose 172 H 182 H POC Glucose Calculated Osmolality 267 L 271 L Calcium 8.3 L 8.3 L Total Bilirubin 0.5 Direct Bilirubin 0.2 Indirect Bilirubin 0.3 AST 30 ALT 31 Alkaline Phosphatase 73 Serum Total Protein 6.1 L Albumin 2.5 L Globulin 3.6 H Albumin/Globulin Ratio 0.7 L Blood Type Antibody Screen Crossmatch Cultures: Cultures 05/10/18 04:50 Blood Culture - Preliminary Peripheral Venipuncture Gram Positive Cocci 05/10/18 04:57 Blood Culture - Preliminary Peripheral Venipuncture Gram Positive Cocci 05/07/18 16:13 Blood Culture - Final Peripheral Venipuncture Staphylococcus aureus 05/08/18 09:10 Blood Culture - Final Peripheral Venipuncture Staphylococcus aureus 05/08/18 09:16 Blood Culture - Final Peripheral Venipuncture Staphylococcus aureus 05/07/18 16:08 Blood Culture - Final Peripheral Venipuncture Staphylococcus aureus Serology 05/08/18 05/08/18 05/07/18 Range/Units 06:52 06:52 16:08 Urine Color (Yellow) Urine Clarity (Clear) Urine pH (5.0-8.0) pH Units Ur Specific Imperial (1.010-1.025) Urine Protein (Neg-Trace) mg/dL Urine Glucose (UA) (Normal) mg/dL Urine Ketones (Negative) mg/dL Urine Blood (Negative) Urine Nitrite (Negative) Urine Bilirubin (Negative) Urine Urobilinogen (Normal) mg/dL Ur Leukocyte Esterase (Negative) Urine Microscopic RBC (0-3) per hpf Urine Microscopic WBC (0-3) per hpf Ur Squamous Epith Cells (None-Few) per lpf Urine Bacteria (None-Few) per hpf Hyaline Casts (None-Few) per lpf Ur Culture Indicated? (NO) Urine Osmolality 310 (300-1090) mOsm/kg Urine Sodium 58.6 mEq/L Urine Chloride 74 mEq/L A. baumannii (PCR) Not Detected (Not Detect) Sanaz albicans (PCR) Not Detected (Not Detect) C. glabrata (PCR) Not Detected (Not Detect) C. krusei (PCR) Not Detected (Not Detect) C. parapsilosis (PCR) Not Detected (Not Detect) C. tropicalis (PCR) Not Detected (Not Detect) Enterobacteriac sp PCR Not Detected (Not Detect) E. cloacae complex PCR Not Detected (Not Detect) Enterococcus sp PCR Not Detected (Not Detect) E. coli (PCR) Not Detected (Not Detect) H. influenzae (PCR) Not Detected (Not Detect) Klebsiella oxytoca PCR Not Detected (Not Detect) Klebsiella pneumoniae Not Detected (Not Detect) List. monocytogenes PCR Not Detected (Not Detect) N. meningitidis (PCR) Not Detected (Not Detect) Proteus species (PCR) Not Detected (Not Detect) Serratia marcescens PCR Not Detected (Not Detect) Staphylococcus sp PCR DETECTED A (Not Detect) Staph aureus (PCR) DETECTED A (Not Detect) mecA-Methicil Res Gene Not Detected (Not Detect) Streptococcus sp PCR Not Detected (Not Detect) Group A Strep DNA Not Detected (Not Detect) Group B Strep (PCR) Not Detected (Not Detect) Strep pneumoniae (PCR) Not Detected (Not Detect) P. aeruginosa (PCR) Not Detected (Not Detect) Isela/B-Vanco Res Genes Not Detected (Not Detect) KPC (blaKPC) Detect PCR Not Detected (Not Detect) 05/07/18 Range/Units 11:34 Urine Color Yellow (Yellow) Urine Clarity Clear (Clear) Urine pH 6.0 (5.0-8.0) pH Units Ur Specific Imperial 1.030 H (1.010-1.025) Urine Protein 30 H (Neg-Trace) mg/dL Urine Glucose (UA) 500 H (Normal) mg/dL Urine Ketones 40 H (Negative) mg/dL Urine Blood Negative (Negative) Urine Nitrite Negative (Negative) Urine Bilirubin Negative (Negative) Urine Urobilinogen Normal (Normal) mg/dL Ur Leukocyte Esterase Negative (Negative) Urine Microscopic RBC 0-3 (0-3) per hpf Urine Microscopic WBC 5-15 H (0-3) per hpf Ur Squamous Epith Cells Many H (None-Few) per lpf Urine Bacteria None Seen (None-Few) per hpf Hyaline Casts None Seen (None-Few) per lpf Ur Culture Indicated? NO (NO) Urine Osmolality (300-1090) mOsm/kg Urine Sodium mEq/L Urine Chloride mEq/L A. baumannii (PCR) (Not Detect) Sanaz albicans (PCR) (Not Detect) C. glabrata (PCR) (Not Detect) C. krusei (PCR) (Not Detect) C. parapsilosis (PCR) (Not Detect) C. tropicalis (PCR) (Not Detect) Enterobacteriac sp PCR (Not Detect) E. cloacae complex PCR (Not Detect) Enterococcus sp PCR (Not Detect) E. coli (PCR) (Not Detect) H. influenzae (PCR) (Not Detect) Klebsiella oxytoca PCR (Not Detect) Klebsiella pneumoniae (Not Detect) List. monocytogenes PCR (Not Detect) N. meningitidis (PCR) (Not Detect) Proteus species (PCR) (Not Detect) Serratia marcescens PCR (Not Detect) Staphylococcus sp PCR (Not Detect) Staph aureus (PCR) (Not Detect) mecA-Methicil Res Gene (Not Detect) Streptococcus sp PCR (Not Detect) Group A Strep DNA (Not Detect) Group B Strep (PCR) (Not Detect) Strep pneumoniae (PCR) (Not Detect) P. aeruginosa (PCR) (Not Detect) Isela/B-Vanco Res Genes (Not Detect) KPC (blaKPC) Detect PCR (Not Detect) - Impressions Impressions Needle Aspiration CT 05/09/18 00:00 IMPRESSION: Successful CT guided fluid aspiration surrounding the right sternoclavicular joint. D/ / Nomi Harris MD / Nomi Harris MD Interpreting Provider: Nomi Harris MD Exam - Constitutional Vitals: Temp Pulse Resp BP Pulse Ox 98.0 F 72 20 145/63 95 05/11/18 08:17 05/11/18 08:17 05/11/18 08:17 05/11/18 08:17 05/11/18 08:17 Exam: GENERAL: Appears as stated age, in no acute distress HEAD: Normocephalic, atraumatic ENT:PERRL, EOMI, conjunctival pallor, oral mucosa moist, some dental work present, no lesions or dentures RESPIRATORY: CTA purnima, no wheezes, rales, rhonchi CHEST: TENDERNESS OVER THE STERNOCLAVICULAR JOINT CARDIAC: RRR, Normal S1 and S2, without murmurs, gallops, or rubs EXTREMITIES: No peripheral edema, pulses intact purnima ABDOMEN: soft, BSx4, nontender, no masses MUSCULOSKELETAL: full ROM purnima extremities, R shoulder limited ROM at extremes during active motion but mostly normal with passive, pain with resisted shoulder raise and abduction, warmth and edema present at R medial clavicular head, Extremities without clubbing, cyanosis or edema. NEUROLOGIC EXAM:No focal deficits,StrengthRUE - 4/5, LUE 5/5, RLE - 4/5, LLE - 4/5, Sensation intact, symmetric of purnima UE and LE PSYCHIATRIC: Normal mood SKIN: Bandage in place over mildly erythematous area of sacrum, no open lesions.; pallor of nail beds, no appreciable [place] lesions, [place] nodes, splinter hemorrhages Consult Discharge Plan - Plan [place]: [facility] [place] [Primary Care Provider] - - Attending Attestation I examined this patient and my medical decision-making was reviewed with the Resident Physician. I agree with the documented findings, disposition and treatment plan as described except to the extent set forth below. Patient seen and examined. Clinically she looks great. Does not appear toxic. No headaches no visual changes. No chest pain or shortness of breath. No nausea no vomiting. No diarrhea no urinary symptoms. Vital signs last 24 hours reviewed Labs noted Physical exam: HEENT head is normocephalic. No conjunctival hemorrhage Lungs clear to auscultation bilaterally Chest still having tenderness on the clavicular sternal area Cardiovascular regular rate and rhythm no murmur Abdomen soft no guarding Back: No spinal tenderness next Recommendations: 1.MSSA bacteremia complicated with septic emboli to the clavicular sternal joint. TTE and GERTRUDE both negative for vegetation 2.sepsis 3.cauda equina syndrome 4.osteomyelitis of the clavicle 5. Urinary incontinence improved Recommendations: Continue cefazolin 2 g every 8 hours duration of treatment 6 weeks Repeat blood cultures on 05/23/2018 2 sets peripheral Once blood cultures are negative for [address] a PICC line or a midline Monitor labs and for drug toxicity
--- NOTE | 2018-05-11 13:23 | Internal Med Progress Note ---
<Ling Cordoba - Last Filed: 05/11/18 13:16> Hospitalist Progress Note - Encounter Date of Encounter: 05/11/18 Time of Encounter: 13:17 - Subjective Interval History: Pt continues to be bacteremic. GERTRUDE did not show any vegetations. Hgb dropped to 6.7 so 1 unit of blood was transfused. Retic count and LFTs ordered to determine if the patient is under producing or if the process is hemolytic. Pt continues to improve and is feeling better. - Exam Vitals: Temp Pulse Resp BP Pulse Ox 98.4 F 79 16 144/99 94 05/11/18 11:55 05/11/18 11:55 05/11/18 11:55 05/11/18 11:55 05/11/18 11:50 Exam: Constitutional - alert. Appears comfortable currently. HEENT - PERRL. EOMI. Mucus membranes dry. Neck - Supple. Moves well today. Chest - R SC joint tender with decreased edema. No erythema noted. Cardio - RRR, no audible murmurs. Respiratory - Clear bilaterally with good effort. Abdomen - soft. No tenderness today. No mass felt. Back - Remains tender to palpation as yesterday. Extremities - No edema noted on extremities. Equal pulses in all 4 extremities. Skin - no visible rashes, ulcers or other lesions. Neuro - Alert. Oriented. Moves all extremities though legs weaker than arms. - Assessment and Plan (1) Sepsis Current Visit: Yes Status: Acute Assessment and Plan: Pt febrile, tachycardic and with elevated WBC MRI shows possible septic SC joint, possible osteo of SC and l spine 1L fluid bolus, vanc and cipro - will continue to hydrate as sodium levels allow BCx drawn 05/10 positive for gm+ cocci Lactic wnl CT chest shows septic SC joint with likely septic emboli to lungs TTE and GERTRUDE negative for visible thrombi ID consulted - switch abx to Cefazolin day 4 Dr. Angeles to treat back pain conservatively Consulted IR for drainage of septic SC joint, completed 05/09 without complication (2) Septic joint Current Visit: Yes Status: Acute Assessment and Plan: Visualized on MRI - right sternoclavicular joint Right SC joint inflammation on exam with tenderness to palpation CT scan with contrast shows septic joint vs arthritis with extravasation surrounding, along with pulmonary nodules concerning for septic emboli Dr. Duenas consulted - appreciate recs IR tapped on 05/09 Abx Cefazolin day 4 (3) Cauda equina syndrome Current Visit: Yes Status: Ruled-out Assessment and Plan: Partial compression seen on MRI Dr. Angeles to treat conservatively - he states he does not believe this is cauda equina syndrome Pain management Q4H neuro checks (4) Discitis of lumbar region Current Visit: Yes Status: Suspected Assessment and Plan: Seen on MRI - partial compression of the cauda equina Pt with LE weakness and one episode of urinary incontinence Plan as #3 above (5) Osteomyelitis Current Visit: Yes Status: Acute Assessment and Plan: Visualized on MRI - lumbar spine L spine tenderness to palpation Plan as above (6) Diabetes mellitus Current Visit: Yes Status: Chronic Assessment and Plan: Will place on low dose SSI cont to monitor (7) Hyponatremia Current Visit: Yes Status: Acute Assessment and Plan: New onset hyponatremia of 130 Partially correctable with BG Will bolus 1L with normal saline and recheck Q4 neuro and sodium checks Will obtain urine lytes total of 3L given Sodium stable without changes in mental status DC fluids Urine lytes wnl (8) Anemia Current Visit: Yes Status: Suspected Assessment and Plan: H&H 8.1/24.8 - on admission No Hx of anemia Denies hematuria, hematochezia, and hemetemesis Reports daily nose bleeds Iron panel, ferritin, B12 and folate are suggestive of anemia of chronic disease Stool guiac pending Cont to monitor Hemoglobin dropped to 6.7 on 05/11 1 unit PRBCs transfused Retic and LFTs ordered and pending Will recheck H&H Type and screen completed - transfuse as needed for less than 7 Pt remains asymptomatic (9) Hypertension Current Visit: Yes Status: Chronic Assessment and Plan: Hypertensive in ED - BPs now normal Likely secondary to pain Cont home medications and pain control (10) DVT prophylaxis Current Visit: Yes Status: Acute Assessment and Plan: EPCDs due to anemia - Time Spent with Patient Total time spent is greater than 50% in coordination of care (as documented) at patient's floor/unit and/or counseling patient: Internal Medicine: Result - Labs CBC & Chem 7: 05/11/18 01:25 05/11/18 08:00 Labs: Short CBC 05/11/18 Range/Units 01:25 WBC 9.7 (4.3-11.1) K/mcL Hgb 6.7 L (11.5-15.4) g/dL Hct 21.1 L (35.3-44.9) % Plt Count 519 H (140-400) K/mcL Neutrophils # 6.6 (1.6-8.9) K/mcL BMP 05/11/18 05/11/18 01:25 08:00 Sodium 127 L 129 L Potassium 3.5 3.7 Chloride 100 102 Carbon Dioxide 25 24 BUN 10 9 Creatinine 0.61 0.50 L Glucose 172 H 182 H Calcium 8.3 L 8.3 L Liver Function 05/11/18 Range/Units 08:00 Total Bilirubin 0.5 (0.3-1.0) mg/dL Direct Bilirubin 0.2 (0.0-0.2) mg/dL AST 30 (13-39) Units/L ALT 31 (7-52) Units/L Alkaline Phosphatase 73 (34-104) Units/L Albumin 2.5 L (3.5-5.7) g/dL - ABG Interpretation ABG results: ABG ABG pH 7.54 pH Units (7.32-7.45) H 05/07/18 16:08 ABG pCO2 27 mmHg (35-45) L 05/07/18 16:08 ABG pO2 97 mmHg (85-104) 05/07/18 16:08 ABG O2 Saturation 99 % (95-98) H 05/07/18 16:08 PT/INR, D-dimer PT 15.4 Seconds (9.4-12.1) H 05/08/18 16:04 - Impressions Impressions Needle Aspiration CT 05/09/18 00:00 IMPRESSION: Successful CT guided fluid aspiration surrounding the right sternoclavicular joint. D/ / Nomi Harris MD / Nomi Harris MD Interpreting Provider: Nomi Harris MD Consult Discharge Plan - Plan Referrals: Kirby Ansari MD [Primary Care Provider] - <Shiva Higgins - Last Filed: 05/11/18 18:12> Hospitalist Progress Note - Encounter Date of Encounter: 05/11/18 - Exam Vitals: Temp Pulse Resp BP Pulse Ox 99.6 F 96 16 114/65 94 05/11/18 15:40 05/11/18 15:40 05/11/18 15:40 05/11/18 15:40 05/11/18 11:50 - Assessment and Plan (1) Sepsis due to Staphylococcus aureus Current Visit: Yes Status: Acute (2) Septic joint Current Visit: Yes Status: Acute (3) Hypertension Current Visit: Yes Status: Chronic (4) Diabetes mellitus Current Visit: Yes Status: Chronic (5) Anemia Current Visit: Yes Status: Suspected (6) Discitis of lumbar region Current Visit: Yes Status: Suspected - Time Spent with Patient Total time spent is greater than 50% in coordination of care (as documented) at patient's floor/unit and/or counseling patient: Internal Medicine: Result - Labs CBC & Chem 7: 05/11/18 16:02 05/11/18 08:00 Labs: Short CBC 05/11/18 05/11/18 Range/Units 01:25 16:02 WBC 9.7 10.8 (4.3-11.1) K/mcL Hgb 6.7 L 8.0 L (11.5-15.4) g/dL Hct 21.1 L 24.9 L (35.3-44.9) % Plt Count 519 H 508 H (140-400) K/mcL Neutrophils # 6.6 8.8 (1.6-8.9) K/mcL BMP 05/11/18 05/11/18 01:25 08:00 Sodium 127 L 129 L Potassium 3.5 3.7 Chloride 100 102 Carbon Dioxide 25 24 BUN 10 9 Creatinine 0.61 0.50 L Glucose 172 H 182 H Calcium 8.3 L 8.3 L Liver Function 05/11/18 Range/Units 08:00 Total Bilirubin 0.5 (0.3-1.0) mg/dL Direct Bilirubin 0.2 (0.0-0.2) mg/dL AST 30 (13-39) Units/L ALT 31 (7-52) Units/L Alkaline Phosphatase 73 (34-104) Units/L Albumin 2.5 L (3.5-5.7) g/dL - ABG Interpretation ABG results: ABG ABG pH 7.54 pH Units (7.32-7.45) H 02/25/19 16:08 ABG pCO2 27 mmHg (35-45) L 05/07/18 16:08 ABG pO2 97 mmHg (85-104) 05/07/18 16:08 ABG O2 Saturation 99 % (95-98) H 05/07/18 16:08 PT/INR, D-dimer PT 15.4 Seconds (9.4-12.1) H 05/08/18 16:04 - Attending Attestation I examined this patient and my medical decision-making was reviewed with the Resident Physician on 05/11/18. I agree with the documented findings, disposition and treatment plan as described except to the extent set forth below. Ms Sims is currently admitted for sepsis related to MSSA bacteremia and infected joint. She remains moderate to high risk due to potential for worsening clinical status. Ms Sims just returned from [place]. No endocarditis. Sleepy at this time. No fever or chills. Pain is about the same Exam alert Comfortable Mucus membranes dry Heart reg and not tachy No wheeze Abd soft I/P 1. Sepsis due to MSSA - on IV ancef. Appreciate ID input 2. MSSA bacteremia Further diagnoses and plan as above. <Ling Cordoba R - Last Filed: 05/11/18 13:16> (1) Sepsis Qualifiers: Sepsis type: methicillin susceptible Staphylococcus aureus Qualified Code(s): A41.01 - Sepsis due to Methicillin susceptible Staphylococcus aureus (2) Septic joint Qualifiers: Septic arthritis location: shoulder Septic arthritis organism: staphylococcal Laterality: right Qualified Code(s): M00.011 - Staphylococcal arthritis, right shoulder (5) Osteomyelitis Qualifiers: Osteomyelitis type: unspecified type Osteomyelitis location: unspecified site Qualified Code(s): M86.9 - Osteomyelitis, unspecified (6) Diabetes mellitus Qualifiers: Diabetes mellitus type: type 2 Diabetes mellitus ad terminal makeup operator insulin use: without intermediate use Diabetes mellitus complication status: with hyperglycemia Qualified Code(s): E11.65 - Type 2 diabetes mellitus with hyperglycemia (8) Anemia Qualifiers: Anemia type: other cause Other causes of anemia: chronic disease, other Qualified Code(s): D63.8 - Anemia in other chronic diseases classified elsewhere (9) Hypertension Qualifiers: Hypertension type: essential hypertension Qualified Code(s): I10 - Essential (primary) hypertension <Shiva Higgins - Last Filed: 05/11/18 18:12> (2) Septic joint Qualifiers: Septic arthritis location: shoulder Septic arthritis organism: staphylococcal Laterality: right Qualified Code(s): M00.011 - Staphylococcal arthritis, right shoulder (3) Hypertension Qualifiers: Hypertension type: essential hypertension Qualified Code(s): I10 - Essential (primary) hypertension (4) Diabetes mellitus Qualifiers: Diabetes mellitus type: type 2 Diabetes mellitus intermediate insulin use: without ad terminal makeup operator use Diabetes mellitus complication status: with hyperglycemia Qualified Code(s): E11.65 - Type 2 diabetes mellitus with hyperglycemia (5) Anemia Qualifiers: Anemia type: other cause Other causes of anemia: chronic disease, other Qualified Code(s): D63.8 - Anemia in other chronic diseases classified elsewhere
[2018-05-11 16:09] LABS: Basophils % 0.2 %; Eosinophils # 0.1 K/mcL (0.0-0.6); Eosinophils % 1.1 %; Hematocrit 24.9 % (35.3-44.9); Immature Granulocytes % 1.1 % (0-4); Lymphocytes # 0.9 K/mcL (0.6-4.6); Lymphocytes % 8.4 %; Mean Corpuscular HGB Conc 32.1 g/dL (31.6-35.5); Mean Corpuscular Hemoglobin 26.8 pg (28.0-33.3); Mean Corpuscular Volume 83.3 fL (83.0-100.0); Mean Platelet Volume 9.5 fL (9.4-12.4); Monocytes # 0.8 K/mcL (0.0-1.3); Monocytes % 7.4 %; Neutrophils # 8.8 K/mcL (1.6-8.9); Platelet Count 508 K/mcL (140-400); Red Blood Count 2.99 M/mcL (3.82-4.97); Red Cell Distribution Width 13.3 % (11.5-14.5); Segmented Neutrophils % 81.8 %
[2018-05-11] MEDS: Sennosides/Docusate Sodium TABLET PO SCH (21:41)
[2018-05-11] MEDS: Mirtazapine 15 MG TABLET PO SCH (21:41)
[2018-05-12] MEDS: ceFAZolin 2,000 MG in 0.9 % Sodium Chloride 100 ML IVPB SCH ×3 (00:45→15:57)
[2018-05-12] MEDS: OXYCODONE Oral CONC 10 MG/0.5 ML ORAL.SYG SL PRN (01:26)
[2018-05-12] MEDS: *HR* HYDROcodone/Acet 5/325 mg TABLET PO PRN ×4 (03:37→22:26)
[2018-05-12 04:24] LABS: Basophils % 0.3 %; Eosinophils # 0.2 K/mcL (0.0-0.6); Eosinophils % 2.2 %; Hematocrit 25.8 % (35.3-44.9); Hemoglobin 8.2 g/dL (11.5-15.4); Immature Reticulocyte % 30.3 % (11.0-38.0); Lymphocytes # 1.9 K/mcL (0.6-4.6); Lymphocytes % 18.2 %; Mean Corpuscular HGB Conc 31.8 g/dL (31.6-35.5); Mean Corpuscular Hemoglobin 26.7 pg (28.0-33.3); Mean Platelet Volume 9.5 fL (9.4-12.4); Monocytes # 0.9 K/mcL (0.0-1.3); Monocytes % 8.5 %; Platelet Count 549 K/mcL (140-400); Red Blood Count 3.07 M/mcL (3.82-4.97); Red Cell Distribution Width 13.7 % (11.5-14.5); Retculocyte # 0.06 M/mcL (0.05-0.10); Segmented Neutrophils % 68.8 %
[2018-05-12 04:43] LABS: BUN/Creatinine Ratio 17 (6-26); Blood Urea Nitrogen 8 mg/dL (8-23); Calcium 8.2 mg/dL (8.6-10.3); Carbon Dioxide 20 mEq/L (23-29); Chloride 104 mEq/L (98-107); Glucose 159 mg/dL (70-105); Osmolality,Calculated 282 (280-300); Potassium 3.8 mEq/L (3.5-5.1); Sodium 135 mEq/L (136-145); eGFR For Non-African Americans > 60 (> 60)
[2018-05-12] MEDS: tiZANidine 4 MG TABLET PO PRN ×2 (06:53→14:50)
--- NOTE | 2018-05-12 08:02 | Internal Med Progress Note ---
<Shiva Higgins - Last Filed: 05/12/18 17:19> Hospitalist Progress Note - Encounter Date of Encounter: 05/12/18 - Exam Vitals: Temp Pulse Resp BP Pulse Ox 97.9 F 90 15 137/67 100 05/12/18 16:45 05/12/18 16:45 05/12/18 16:45 05/12/18 16:45 05/12/18 16:45 - Assessment and Plan (1) Sepsis due to Staphylococcus aureus Current Visit: Yes Status: Acute (2) Septic joint Current Visit: Yes Status: Acute (3) Hypertension Current Visit: Yes Status: Chronic (4) Diabetes mellitus Current Visit: Yes Status: Chronic (5) Anemia Current Visit: Yes Status: Suspected (6) Discitis of lumbar region Current Visit: Yes Status: Suspected - Time Spent with Patient Total time spent is greater than 50% in coordination of care (as documented) at patient's floor/unit and/or counseling patient: Internal Medicine: Result - Labs CBC & Chem 7: 05/12/18 04:00 05/12/18 04:00 Labs: Short CBC 05/12/18 Range/Units 04:00 WBC 10.2 (4.3-11.1) K/mcL Hgb 8.2 L (11.5-15.4) g/dL Hct 25.8 L (35.3-44.9) % Plt Count 549 H (140-400) K/mcL Neutrophils # 7.0 (1.6-8.9) K/mcL BMP 05/12/18 04:00 Sodium 135 L Potassium 3.8 Chloride 104 Carbon Dioxide 20 L BUN 8 Creatinine 0.46 L Glucose 159 H Calcium 8.2 L - ABG Interpretation ABG results: ABG ABG pH 7.54 pH Units (7.32-7.45) H 05/07/18 16:08 ABG pCO2 27 mmHg (35-45) L 05/07/18 16:08 ABG pO2 97 mmHg (85-104) 05/07/18 16:08 ABG O2 Saturation 99 % (95-98) H 05/07/18 16:08 PT/INR, D-dimer PT 15.4 Seconds (9.4-12.1) H 05/08/18 16:04 Consult Discharge Plan - Plan Referrals: Kirby forrest MD [Primary Care Provider] - - Attending Attestation I examined this patient and my medical decision-making was reviewed with the Resident Physician on 05/12/18. I agree with the documented findings, disposition and treatment plan as described except to the extent set forth below. Ms Sims is currently admitted for MSSA bacteremia/sepsis. She remains moderate to high risk due to potential for worsening clinical status. Ms Sims is sitting up in bed. She if feeling OK. Pain is slowly improving. No fever or chills. Tolerating IV abx. Exam alert Comfortable Mucus membranes dry Heart reg and not tachy No wheeze abd soft No edema I/P 1. Sepsis due to MSSA 2. OM R SC joint Further diagnoses and plan as above. <Ralph Bettencourt - Last Filed: 05/12/18 18:39> Hospitalist Progress Note - Encounter Date of Encounter: 05/12/18 Time of Encounter: 13:00 - Subjective Interval History: Pt seen and examined at bedside. No new or acute complaints. States she is s tarting to feel better. Denies any fever, chills, chest pain, shortness of breath. abdominal pain, nausea, vomiting, constipation, diarrhea, or urinary symptoms. - Exam Vitals: Temp Pulse Resp BP Pulse Ox 97.5 F L 63 16 98/61 99 05/12/18 06:56 05/12/18 06:56 05/12/18 06:56 05/12/18 06:56 05/12/18 06:56 Exam: General: well developed well nourished female in no acute distress Head: normocephalic and atraumatic Eyes: PERRL, EOMI, sclera anicteric Neck: supple, trachea midline Lungs: CTA bilaterally. non-labored breathing. no wheezes, rales, or rhonchi Heart: RRR +s1 +s2 No murmurs, clicks, or rubs GI: abdomen soft, non-tender, non-distended. Extremities: warm, peripheral pulses palpable and symmetrical. No edema, cyanosis, or calf tenderness. Neuro: A&Ox3. no focal deficits. no speech difficulty or abnormality Skin: warm, dry, intact - Assessment and Plan (1) Sepsis due to Staphylococcus aureus Current Visit: Yes Status: Resolved Assessment and Plan: Pt febrile, tachycardic and with elevated WBC on admission MRI shows possible septic SC joint, possible osteo of SC and L spine 1L fluid bolus, vanc and cipro - will continue to hydrate as sodium levels allow Repeat blood cultures growing Staph aureus with most recent on 05/[address] chest shows septic SC joint with likely septic emboli to lungs TTE and GERTRUDE negative for visible thrombi ID consulted - switched abx to Cefazolin Dr. Angeles to treat back pain conservatively Consulted IR for drainage of septic SC joint, completed 05/09 without complication Continue Cefazolin (Day 5) Repeat Blood cultures in AM (2) Septic joint Current Visit: Yes Status: Acute Assessment and Plan: Visualized on MRI - right sternoclavicular joint Right SC joint inflammation on exam with tenderness to palpation CT scan with contrast shows septic joint vs arthritis with extravasation surrounding, along with pulmonary nodules concerning for septic emboli Dr. Duenas consulted - appreciate recs IR tapped on 05/09 Abx Cefazolin day 5 (3) Diabetes mellitus Current Visit: Yes Status: Chronic Assessment and Plan: Hx of DM Blood sugars elevated due to infection. ACHS accuchecks Low dose SSI (4) Hypertension Current Visit: Yes Status: Chronic Assessment and Plan: Hypertensive in ED - BPs now normal Likely secondary to pain Cont home medications and pain control (5) Discitis of lumbar region Current Visit: Yes Status: Suspected Assessment and Plan: Pt with back pain and neurologic symptoms. Seen on MRI - partial compression of the cauda equina Pt with LE weakness and one episode of urinary incontinence Dr. Angeles to treat conservatively - he states he does not believe this is cauda equina syndrome Pain management Q4H neuro checks (6) Anemia Current Visit: Yes Status: Suspected Assessment and Plan: H&H 8.04/05.8 - on admission Denies hx of anemia Denies hematuria, hematochezia, and hemetemesis Reports daily nose bleeds Iron panel, ferritin, B12 and folate are suggestive of anemia of chronic disease Stool guiac pending 1 unit PRBCs transfused on 05/11 H&H stable today Transfuse as needed for less than 7 Pt remains asymptomatic DVT Prophylaxis: EPCDs with anemia - Time Spent with Patient Total time spent is greater than 50% in coordination of care (as documented) at patient's floor/unit and/or counseling patient: Internal Medicine: Result - Labs CBC & Chem 7: 05/12/18 04:00 05/12/18 04:00 Labs: Short CBC 05/11/18 05/12/18 Range/Units 16:02 04:00 WBC 10.8 10.2 (4.3-11.1) K/mcL Hgb 8.0 L 8.2 L (11.5-15.4) g/dL Hct 24.9 L 25.8 L (35.3-44.9) % Plt Count 508 H 549 H (140-400) K/mcL Neutrophils # 8.8 7.0 (1.6-8.9) K/mcL BMP 05/11/18 05/12/18 08:00 04:00 Sodium 129 L 135 L Potassium 3.7 3.8 Chloride 102 104 Carbon Dioxide 24 20 L BUN 9 8 Creatinine 0.50 L 0.46 L Glucose 182 H 159 H Calcium 8.3 L 8.2 L Liver Function 05/11/18 Range/Units 08:00 Total Bilirubin 0.5 (0.3-1.0) mg/dL Direct Bilirubin 0.2 (0.0-0.2) mg/dL AST 30 (13-39) Units/L ALT 31 (7-52) Units/L Alkaline Phosphatase 73 (34-104) Units/L Albumin 2.5 L (3.5-5.7) g/dL - ABG Interpretation ABG results: ABG ABG pH 7.54 pH Units (7.32-7.45) H 05/07/18 16:08 ABG pCO2 27 mmHg (35-45) L 05/07/18 16:08 ABG pO2 97 mmHg (85-104) 05/07/18 16:08 ABG O2 Saturation 99 % (95-98) H 05/07/18 16:08 PT/INR, D-dimer PT 15.4 Seconds (9.4-12.1) H 05/08/18 16:04 <Shiva Higgins A - Last Filed: 05/12/18 17:19> (2) Septic joint Qualifiers: Septic arthritis location: shoulder Septic arthritis organism: staphylococcal Laterality: right Qualified Code(s): M00.011 - Staphylococcal arthritis, right shoulder (3) Hypertension Qualifiers: Hypertension type: essential hypertension Qualified Code(s): I10 - Essential (primary) hypertension (4) Diabetes mellitus Qualifiers: Diabetes mellitus type: type 2 Diabetes mellitus reception specialist insulin use: without reception specialist use Diabetes mellitus complication status: with hyperglycemia Qualified Code(s): E11.65 - Type 2 diabetes mellitus with hyperglycemia (5) Anemia Qualifiers: Anemia type: other cause Other causes of anemia: chronic disease, other Qualified Code(s): D63.8 - Anemia in other chronic diseases classified elsewhere <Ralph Bettencourt A - Last Filed: 05/12/18 18:39> (2) Septic joint Qualifiers: Septic arthritis location: shoulder Septic arthritis organism: staphylococcal Laterality: right Qualified Code(s): M00.011 - Staphylococcal arthritis, right shoulder (3) Diabetes mellitus Qualifiers: Diabetes mellitus type: type 2 Diabetes mellitus retirement insulin use: without reception specialist use Diabetes mellitus complication status: with hyperglycemia Qualified Code(s): E11.65 - Type 2 diabetes mellitus with hyperglycemia (4) Hypertension Qualifiers: Hypertension type: essential hypertension Qualified Code(s): I10 - Essential (primary) hypertension (6) Anemia Qualifiers: Anemia type: other cause Other causes of anemia: chronic disease, other Qualified Code(s): D63.8 - Anemia in other chronic diseases classified elsewhere
[2018-05-12] MEDS: Sennosides/Docusate Sodium TABLET PO SCH ×3 (08:13→22:52)
[2018-05-12] MEDS: Insulin LISPRO 300 UNITS/3 ML VIAL SQ SCH ×4 (08:16→22:27)
[2018-05-12] MEDS: Lisinopril-HCTZ 20-12.5mg TABLET PO SCH (10:43)
[2018-05-12] MEDS ORDERED: Fluconazole 100 MG TABLET PO ONE (18:13)
[2018-05-12] MEDS: Mirtazapine 15 MG TABLET PO SCH (22:26)
[2018-05-13] MEDS: tiZANidine 4 MG TABLET PO PRN (00:26)
[2018-05-13] MEDS: ceFAZolin 2,000 MG in 0.9 % Sodium Chloride 100 ML IVPB SCH ×4 (00:27→23:45)
[2018-05-13] MEDS: *HR* HYDROcodone/Acet 5/325 mg TABLET PO PRN ×4 (03:23→22:24)
[2018-05-13 04:26] LABS: Basophils % 0.3 %; Eosinophils # 0.2 K/mcL (0.0-0.6); Eosinophils % 2.4 %; Hematocrit 24.6 % (35.3-44.9); Hemoglobin 7.7 g/dL (11.5-15.4); Immature Granulocytes % 1.2 % (0-4); Lymphocytes # 1.4 K/mcL (0.6-4.6); Lymphocytes % 15.8 %; Mean Corpuscular HGB Conc 31.3 g/dL (31.6-35.5); Mean Corpuscular Hemoglobin 26.5 pg (28.0-33.3); Mean Corpuscular Volume 84.5 fL (83.0-100.0); Mean Platelet Volume 9.5 fL (9.4-12.4); Monocytes # 0.6 K/mcL (0.0-1.3); Monocytes % 7.1 %; Neutrophils # 6.5 K/mcL (1.6-8.9); Platelet Count 503 K/mcL (140-400); Red Blood Count 2.91 M/mcL (3.82-4.97); Red Cell Distribution Width 13.4 % (11.5-14.5); Segmented Neutrophils % 73.2 %
[2018-05-13 04:33] LABS: BUN/Creatinine Ratio 18 (6-26); Blood Urea Nitrogen 8 mg/dL (8-23); Calcium 8.2 mg/dL (8.6-10.3); Carbon Dioxide 23 mEq/L (23-29); Chloride 105 mEq/L (98-107); Glucose 175 mg/dL (70-105); Osmolality,Calculated 285 (280-300); Potassium 3.7 mEq/L (3.5-5.1); Sodium 136 mEq/L (136-145); eGFR For Non-African Americans > 60 (> 60)
[2018-05-13] MEDS: Lisinopril-HCTZ 20-12.5mg TABLET PO SCH (08:13)
[2018-05-13] MEDS: Insulin LISPRO 300 UNITS/3 ML VIAL SQ SCH ×4 (08:14→21:21)
[2018-05-13] MEDS: 0.9 % Sodium Chloride 500 ML IVC SCH ×2 (08:41→09:22)
[2018-05-13] MEDS: Sennosides/Docusate Sodium TABLET PO SCH ×2 (09:46→21:19)
--- NOTE | 2018-05-13 11:30 | Internal Med Progress Note ---
<Ralph Bettencourt - Last Filed: 05/13/18 13:17> Hospitalist Progress Note - Encounter Date of Encounter: 05/13/18 Time of Encounter: 12:30 - Subjective Interval History: Pt seen and examined at bedside. No new or acute complaints. Denies any fever, chills, chest pain, shortness of breath, abdominal pain, nausea, vomiting, constipation, diarrhea, or urinary symptoms. She does admit to some vaginal pruritus which is improved since yesterday afternoon. - Exam Vitals: Temp Pulse Resp BP Pulse Ox 97.5 F L 82 18 147/72 99 05/13/18 05:27 05/13/18 05:27 05/13/18 05:27 05/13/18 05:27 05/13/18 05:27 Exam: General: well developed well nourished female in no acute distress Head: normocephalic and atraumatic Eyes: PERRL, EOMI, sclera anicteric Neck: supple, trachea midline Lungs: CTA bilaterally. non-labored breathing. no wheezes, rales, or rhonchi Heart: RRR +s1 +s2 No murmurs, clicks, or rubs GI: abdomen soft, non-tender, non-distended. Extremities: warm, peripheral pulses palpable and symmetrical. No edema, cyanosis, or calf tenderness. Neuro: A&Ox3. no focal deficits. no speech difficulty or abnormality Skin: warm, dry, intact - Assessment and Plan (1) Septic joint Current Visit: Yes Status: Acute Assessment and Plan: Visualized on MRI - right sternoclavicular joint Right SC joint inflammation on exam with tenderness to palpation CT scan with contrast shows septic joint vs arthritis with extravasation surrou nding, along with pulmonary nodules concerning for septic emboli Dr. Duenas consulted - appreciate recs IR tapped on 05/09 Abx Cefazolin day 6 (2) Diabetes mellitus Current Visit: Yes Status: Chronic Assessment and Plan: Hx of DM Blood sugars elevated due to infection. ACHS accuchecks Low dose SSI (3) Hypertension Current Visit: Yes Status: Chronic Assessment and Plan: Hypertensive in ED - BPs now normal Likely secondary to pain Cont home medications and pain control (4) Discitis of lumbar region Current Visit: Yes Status: Suspected Assessment and Plan: Pt with back pain and neurologic symptoms. Seen on MRI - partial compression of the cauda equina Pt with LE weakness and one episode of urinary incontinence Dr. Angeles to treat conservatively - he states he does not believe this is cauda equina syndrome Pain management Q4H neuro checks (5) Anemia Current Visit: Yes Status: Suspected Assessment and Plan: H&H 8.24.8 - on admission Denies hx of anemia Denies hematuria, hematochezia, and hemetemesis Reports daily nose bleeds Iron panel, ferritin, B12 and folate are suggestive of anemia of chronic disease Stool guiac pending 1 unit PRBCs transfused on 05/11 H&H stable today Transfuse as needed for less than 7 Pt remains asymptomatic (6) Sepsis due to Staphylococcus aureus Current Visit: Yes Status: Resolved Assessment and Plan: Pt febrile, tachycardic and with elevated WBC on admission MRI shows possible septic SC joint, possible osteo of SC and L spine 1L fluid bolus, vanc and cipro - will continue to hydrate as sodium levels allow Repeat blood cultures growing Staph aureus with most recent on 05/[address] chest shows septic SC joint with likely septic emboli to lungs TTE and GERTRUDE negative for visible thrombi ID consulted - switched abx to Cefazolin Dr. Angeles to treat back pain conservatively Consulted IR for drainage of septic SC joint, completed 05/09 without complication Continue Cefazolin (Day 6) Repeated Blood cultures in AM - results pending DVT Prophylaxis: EPCDs with anemia - Time Spent with Patient Total time spent is greater than 50% in coordination of care (as documented) at patient's floor/unit and/or counseling patient: Internal Medicine: Result - Labs CBC & Chem 7: 05/13/18 03:55 05/13/18 03:55 Labs: Short CBC 05/13/18 Range/Units 03:55 WBC 8.8 (4.3-11.1) K/mcL Hgb 7.7 L (11.5-15.4) g/dL Hct 24.6 L (35.3-44.9) % Plt Count 503 H (140-400) K/mcL Neutrophils # 6.5 (1.6-8.9) K/mcL BMP 05/13/18 03:55 Sodium 136 Potassium 3.7 Chloride 105 Carbon Dioxide 23 BUN 8 Creatinine 0.45 L Glucose 175 H Calcium 8.2 L - ABG Interpretation ABG results: ABG ABG pH 7.54 pH Units (7.32-7.45) H 05/07/18 16:08 ABG pCO2 27 mmHg (35-45) L 05/07/18 16:08 ABG pO2 97 mmHg (85-104) 05/07/18 16:08 ABG O2 Saturation 99 % (95-98) H 05/07/18 16:08 PT/INR, D-dimer PT 15.4 Seconds (9.4-12.1) H 05/08/18 16:04 Consult Discharge Plan - Plan Referrals: [facility] HugoKirby MD [Primary Care Provider] - <Shiva Higgins - Last Filed: 05/13/18 17:08> Hospitalist Progress Note - Encounter Date of Encounter: 05/13/18 - Exam Vitals: Temp Pulse Resp BP Pulse Ox 98.1 F 87 16 170/74 99 05/13/18 16:36 05/13/18 16:36 05/13/18 16:36 05/13/18 16:36 05/13/18 16:36 - Assessment and Plan (1) Diabetes mellitus Current Visit: Yes Status: Chronic (2) Hypertension Current Visit: Yes Status: Chronic (3) Septic joint Current Visit: Yes Status: Acute (4) Discitis of lumbar region Current Visit: Yes Status: Suspected (5) Anemia Current Visit: Yes Status: Suspected (6) Sepsis due to Staphylococcus aureus Current Visit: Yes Status: Resolved - Time Spent with Patient Total time spent is greater than 50% in coordination of care (as documented) at patient's floor/unit and/or counseling patient: Internal Medicine: Result - Labs CBC & Chem 7: 05/13/18 03:55 05/13/18 03:55 Labs: Short CBC 05/13/18 Range/Units 03:55 WBC 8.8 (4.3-11.1) K/mcL Hgb 7.7 L (11.5-15.4) g/dL Hct 24.6 L (35.3-44.9) % Plt Count 503 H (140-400) K/mcL Neutrophils # 6.5 (1.6-8.9) K/mcL BMP 05/13/18 03:55 Sodium 136 Potassium 3.7 Chloride 105 Carbon Dioxide 23 BUN 8 Creatinine 0.45 L Glucose 175 H Calcium 8.2 L - ABG Interpretation ABG results: ABG ABG pH 7.54 pH Units (7.32-7.45) H 05/07/18 16:08 ABG pCO2 27 mmHg (35-45) L 05/07/18 16:08 ABG pO2 97 mmHg (85-104) 05/07/18 16:08 ABG O2 Saturation 99 % (95-98) H 05/07/18 16:08 PT/INR, D-dimer PT 15.4 Seconds (9.4-12.1) H 05/08/18 16:04 - Attending Attestation I examined this patient and my medical decision-making was reviewed with the Resident Physician on 05/13/18. I agree with the documented findings, disposition and treatment plan as described except to the extent set forth below. Ms Sims is currently admitted for sepsis related to MSSA. She remains moderate to high risk due to potential for worsening clinical status. Ms Sims is doing OK. Wanted to change muscle relaxant. No fever or chills. No CP at this time. Exam alert Comfortable Mucus membranes dry Heart reg and not tachy No wheeze abd soft I/P 1. MSSA sepsis/bacteremia - on IV ancef. Blood cx today Further diagnoses and plan as above. <Ralph Bettencourt - Last Filed: 05/13/18 13:17> (1) Septic joint Qualifiers: Septic arthritis location: shoulder Septic arthritis organism: staphylococcal Laterality: right Qualified Code(s): M00.011 - Staphylococcal arthritis, right shoulder (2) Diabetes mellitus Qualifiers: Diabetes mellitus type: type 2 Diabetes mellitus fci insulin use: without fci use Diabetes mellitus complication status: with hyperglycemia Qualified Code(s): E11.65 - Type 2 diabetes mellitus with hyperglycemia (3) Hypertension Qualifiers: Hypertension type: essential hypertension Qualified Code(s): I10 - Essential (primary) hypertension (5) Anemia Qualifiers: Anemia type: other cause Other causes of anemia: chronic disease, other Qualified Code(s): D63.8 - Anemia in other chronic diseases classified elsewhere <Shiva Higgins - Last Filed: 05/13/18 17:08> (1) Diabetes mellitus Qualifiers: Diabetes mellitus type: type 2 Diabetes mellitus fci insulin use: without terminal clerk use Diabetes mellitus complication status: with hyperglycemia Qualified Code(s): E11.65 - Type 2 diabetes mellitus with hyperglycemia (2) Hypertension Qualifiers: Hypertension type: essential hypertension Qualified Code(s): I10 - Essential (primary) hypertension (3) Septic joint Qualifiers: Septic arthritis location: shoulder Septic arthritis organism: staphylococcal Laterality: right Qualified Code(s): M00.011 - Staphylococcal arthritis, right shoulder (5) Anemia Qualifiers: Anemia type: other cause Other causes of anemia: chronic disease, other Qualified Code(s): D63.8 - Anemia in other chronic diseases classified elsewhere
[2018-05-13] MEDS: Mirtazapine 15 MG TABLET PO SCH (21:19)
[2018-05-14 01:32] LABS: Basophils % 0.4 %; Eosinophils # 0.2 K/mcL (0.0-0.6); Hematocrit 26.2 % (35.3-44.9); Hemoglobin 8.4 g/dL (11.5-15.4); Immature Granulocytes % 1.7 % (0-4); Lymphocytes # 1.4 K/mcL (0.6-4.6); Lymphocytes % 16.7 %; Mean Corpuscular HGB Conc 32.1 g/dL (31.6-35.5); Mean Corpuscular Hemoglobin 26.9 pg (28.0-33.3); Mean Platelet Volume 9.2 fL (9.4-12.4); Monocytes # 0.8 K/mcL (0.0-1.3); Monocytes % 9.1 %; Neutrophils # 5.9 K/mcL (1.6-8.9); Platelet Count 547 K/mcL (140-400); Red Blood Count 3.12 M/mcL (3.82-4.97); Red Cell Distribution Width 13.6 % (11.5-14.5); Segmented Neutrophils % 70.1 %
[2018-05-14 01:52] LABS: BUN/Creatinine Ratio 13 (6-26); Blood Urea Nitrogen 6 mg/dL (8-23); Calcium 8.4 mg/dL (8.6-10.3); Carbon Dioxide 26 mEq/L (23-29); Chloride 102 mEq/L (98-107); Glucose 182 mg/dL (70-105); Osmolality,Calculated 284 (280-300); Potassium 3.3 mEq/L (3.5-5.1); Sodium 136 mEq/L (136-145); eGFR For Non-African Americans > 60 (> 60)
[2018-05-14] MEDS: *HR* HYDROcodone/Acet 5/325 mg TABLET PO PRN ×4 (04:02→23:05)
[2018-05-14] MEDS: Sennosides/Docusate Sodium TABLET PO SCH ×2 (08:01→22:32)
[2018-05-14] MEDS: Insulin LISPRO 300 UNITS/3 ML VIAL SQ SCH ×4 (08:02→22:34)
[2018-05-14] MEDS: ceFAZolin 2,000 MG in 0.9 % Sodium Chloride 100 ML IVPB SCH ×2 (08:02→16:15)
[2018-05-14] MEDS: Lisinopril-HCTZ 20-12.5mg TABLET PO SCH (08:08)
--- NOTE | 2018-05-14 08:59 | Internal Med Progress Note ---
<Ling Cordoba - Last Filed: 05/14/18 13:32> Hospitalist Progress Note - Encounter Date of Encounter: 05/14/18 Time of Encounter: 08:59 - Subjective Interval History: Pt remains stable without acute change overnight. No requests at this time. BCx drawn 05/13 without GTD - if remains without growth tomorrow will place manager long term care IV and work on DC to rehab fopr continued IV abx to complete a 6 week course per ID. - Exam Vitals: Temp Pulse Resp BP Pulse Ox 98.0 F 98 15 162/74 97 05/14/18 06:45 05/14/18 06:45 05/14/18 06:45 05/14/18 06:45 05/14/18 06:45 Exam: General: well developed well nourished female in no acute distress Head: normocephalic and atraumatic Eyes: PERRL, EOMI, sclera anicteric Neck: supple, trachea midline Lungs: CTA bilaterally. non-labored breathing. no wheezes, rales, or rhonchi Heart: RRR, no murmurs GI: abdomen soft, non-tender, non-distended. Extremities: warm, peripheral pulses palpable and symmetrical. No edema, cyanosis, or calf tenderness. Neuro: A&Ox3. no focal deficits. no speech difficulty or abnormality Skin: warm, dry, intact - Assessment and Plan (1) Sepsis Current Visit: Yes Status: Acute Assessment and Plan: Pt febrile, tachycardic and with elevated WBC on admission MRI shows possible septic SC joint, possible osteo of SC and L spine 1L fluid bolus, vanc and cipro - will continue to hydrate as sodium levels allow Repeat blood cultures growing Staph aureus with most recent on 05/[address] chest shows septic SC joint with likely septic emboli to lungs TTE and GERTRUDE negative for visible thrombi ID consulted - switched abx to Cefazolin Dr. Angeles to treat back pain conservatively Consulted IR for drainage of septic SC joint, completed 05/09 without complica tion Continue Cefazolin (Day 7) Repeated Blood cultures 05/13- results pending If remains without growth tomorrow will place correction IV for outpatient abx to complete a 6 week course (2) Septic joint Current Visit: Yes Status: Acute Assessment and Plan: Visualized on MRI - right sternoclavicular joint Right SC joint inflammation on exam with tenderness to palpation CT scan with contrast shows septic joint vs arthritis with extravasation surrounding, along with pulmonary nodules concerning for septic emboli Dr. Duenas consulted - appreciate recs IR tapped on 05/09 Abx Cefazolin day 7 (3) Cauda equina syndrome Current Visit: Yes Status: Ruled-out (4) Discitis of lumbar region Current Visit: Yes Status: Suspected Assessment and Plan: Pt with back pain and neurologic symptoms. Seen on MRI - partial compression of the cauda equina Pt with LE weakness and one episode of urinary incontinence Dr. Angeles to treat conservatively - he states he does not believe this is cauda equina syndrome Pain management Q4H neuro checks (5) Osteomyelitis Current Visit: Yes Status: Acute Assessment and Plan: Visualized on MRI - lumbar spine L spine tenderness to palpation Plan as above (6) Diabetes mellitus Current Visit: Yes Status: Chronic Assessment and Plan: Hx of DM Blood sugars elevated due to infection. ACHS accuchecks Low dose SSI (7) Hyponatremia Current Visit: Yes Status: Resolved Assessment and Plan: New onset hyponatremia of 130 Partially correctable with BG Will bolus 1L with normal saline and recheck Q4 neuro and sodium checks Will obtain urine lytes total of 3L given Sodium stable without changes in mental status DC fluids Urine lytes wnl Sodium back to normal on 05/14 Continue to monitor (8) Anemia Current Visit: Yes Status: Suspected Assessment and Plan: H&H 8.124.8 - on admission Denies hx of anemia Denies hematuria, hematochezia, and hemetemesis Reports daily nose bleeds Iron panel, ferritin, B12 and folate are suggestive of anemia of chronic disease Stool guiac pending 1 unit PRBCs transfused on 05/11 H&H stable today Transfuse as needed for less than 7 Pt remains asymptomatic (9) Hypertension Current Visit: Yes Status: Chronic Assessment and Plan: Hypertensive in ED - BPs now normal Likely secondary to pain Cont home medications and pain control (10) DVT prophylaxis Current Visit: Yes Status: Acute Assessment and Plan: EPCDs secondary to anemia - Time Spent with Patient Total time spent is greater than 50% in coordination of care (as documented) at patient's floor/unit and/or counseling patient: Internal Medicine: Result - Labs CBC & Chem 7: 05/14/18 01:16 05/14/18 01:16 Labs: Short CBC 05/14/18 Range/Units 01:16 WBC 8.5 (4.3-11.1) K/mcL Hgb 8.4 L (11.5-15.4) g/dL Hct 26.2 L (35.3-44.9) % Plt Count 547 H (140-400) K/mcL Neutrophils # 5.9 (1.6-8.9) K/mcL BMP 05/14/18 01:16 Sodium 136 Potassium 3.3 L Chloride 102 Carbon Dioxide 26 BUN 6 L Creatinine 0.45 L Glucose 182 H Calcium 8.4 L - ABG Interpretation ABG results: ABG ABG pH 7.54 pH Units (7.32-7.45) H 05/07/18 16:08 ABG pCO2 27 mmHg (35-45) L 05/07/18 16:08 ABG pO2 97 mmHg (85-104) 05/07/18 16:08 ABG O2 Saturation 99 % (95-98) H 05/07/18 16:08 PT/INR, D-dimer PT 15.4 Seconds (9.4-12.1) H 05/08/18 16:04 Consult Discharge Plan - Plan Referrals: Kirby forrest MD [Primary Care Provider] - <Shiva Higgins A - Last Filed: 05/14/18 14:52> Hospitalist Progress Note - Encounter Date of Encounter: 05/14/18 - Exam Vitals: Temp Pulse Resp BP Pulse Ox 97.9 F 99 18 179/82 99 05/14/18 11:07 05/14/18 11:07 05/14/18 11:07 05/14/18 11:07 05/14/18 11:07 - Assessment and Plan (1) Diabetes mellitus Current Visit: Yes Status: Chronic (2) Hypertension Current Visit: Yes Status: Chronic (3) Septic joint Current Visit: Yes Status: Acute (4) Discitis of lumbar region Current Visit: Yes Status: Suspected (5) Anemia Current Visit: Yes Status: Suspected (6) Sepsis due to Staphylococcus aureus Current Visit: Yes Status: Resolved - Time Spent with Patient Total time spent is greater than 50% in coordination of care (as documented) at patient's floor/unit and/or counseling patient: Internal Medicine: Result - Labs CBC & Chem 7: 05/14/18 01:16 05/14/18 01:16 Labs: Short CBC 05/14/18 Range/Units 01:16 WBC 8.5 (4.3-11.1) K/mcL Hgb 8.4 L (11.5-15.4) g/dL Hct 26.2 L (35.3-44.9) % Plt Count 547 H (140-400) K/mcL Neutrophils # 5.9 (1.6-8.9) K/mcL BMP 05/14/18 01:16 Sodium 136 Potassium 3.3 L Chloride 102 Carbon Dioxide 26 BUN 6 L Creatinine 0.45 L Glucose 182 H Calcium 8.4 L - ABG Interpretation ABG results: ABG ABG pH 7.54 pH Units (7.32-7.45) H 05/07/18 16:08 ABG pCO2 27 mmHg (35-45) L 05/07/18 16:08 ABG pO2 97 mmHg (85-104) 05/07/18 16:08 ABG O2 Saturation 99 % (95-98) H 05/07/18 16:08 PT/INR, D-dimer PT 15.4 Seconds (9.4-12.1) H 05/08/18 16:04 - Attending Attestation I examined this patient and my medical decision-making was reviewed with the Resident Physician on 05/14/18. I agree with the documented findings, disposition and treatment plan as described except to the extent set forth below. Ms Sims is currently admitted for MSSA bacteremia with SC joint infection and diskitis. She remains moderate to high risk due to potential for worsening clinical status. Ms Sims got up with therapy today and sat in chair. No fever or chills. Blood cx negative thus far. No GI issues. Does have some vaginal itching from presumed yeast. Exam alert Comfortable Mucus membranes dry Heart reg and not tachy - murmur heard Lungs clear bilaterally Abd soft and nontender No edema noted I/P 1. Sepsis due to MSSA - resolved 2. MSSA bacteremia - awaiting most recent blood culture results. If negative anticipate placement of IV line for abx. 3. Referral to SNF for rehab and IV abx. Further diagnoses and plan as above. <Ling Cordoba R - Last Filed: 05/14/18 13:32> (1) Sepsis Qualifiers: Sepsis type: methicillin susceptible Staphylococcus aureus Qualified Code(s): A41.01 - Sepsis due to Methicillin susceptible Staphylococcus aureus (2) Septic joint Qualifiers: Septic arthritis location: shoulder Septic arthritis organism: staphylococcal Laterality: right Qualified Code(s): M00.011 - Staphylococcal arthritis, right shoulder (5) Osteomyelitis Qualifiers: Osteomyelitis type: unspecified type Osteomyelitis location: unspecified site Qualified Code(s): M86.9 - Osteomyelitis, unspecified (6) Diabetes mellitus Qualifiers: Diabetes mellitus type: type 2 Diabetes mellitus manager long term care insulin use: without manager long term care use Diabetes mellitus complication status: with hyperglycemia Qualified Code(s): E11.65 - Type 2 diabetes mellitus with hyperglycemia (8) Anemia Qualifiers: Anemia type: other cause Other causes of anemia: chronic disease, other Qualified Code(s): D63.8 - Anemia in other chronic diseases classified elsewhere (9) Hypertension Qualifiers: Hypertension type: essential hypertension Qualified Code(s): I10 - Essential (primary) hypertension <Shiva Higgins A - Last Filed: 05/14/18 14:52> (1) Diabetes mellitus Qualifiers: Diabetes mellitus type: type 2 Diabetes mellitus manager long term care insulin use: without correction use Diabetes mellitus complication status: with hyperglycemia Qualified Code(s): E11.65 - Type 2 diabetes mellitus with hyperglycemia (2) Hypertension Qualifiers: Hypertension type: essential hypertension Qualified Code(s): I10 - Essential (primary) hypertension (3) Septic joint Qualifiers: Septic arthritis location: shoulder Septic arthritis organism: staphylococcal Laterality: right Qualified Code(s): M00.011 - Staphylococcal arthritis, right shoulder (5) Anemia Qualifiers: Anemia type: other cause Other causes of anemia: chronic disease, other Qualified Code(s): D63.8 - Anemia in other chronic diseases classified elsewhere
--- NOTE | 2018-05-14 09:49 | Infectious Disease Progress No ---
Date of Encounter: 05/14/18 Time of Encounter: 09:20 - Assessment and Plan (1) MSSA bacteremia Current Visit: Yes Status: Acute 05/07/18 Blood Culture- x2 S. aureus -Sensitive: oxacillin, vancomycin, levo, cipro, daptomycin; Resistance: clindamycin, erythromycin 05/08/18 Blood Culture- x2 S. aureus 05/10/18 Blood Culture- x2 S. aureus 05/13/18 Blood Culture- pending -source not clear -complicated; patient has hardware in bilateral feet from previous surgeries and septic arthritis of the R sternoclavicular joint and maybe right shoulder -exam with no other minor López's Criteria TTE 05/08: LVEF 60%, No valvular vegetations visualized, Mild mitral regurg, Mild-moderate tricuspid regurg GERTRUDE 05/11: LVEF 65%, No vegetations visualized, Mild mitral regurg, Mild-moderate tricuspid regurg, Normal LV and RV Plan: -Continue cefazolin (day 7) 2 grams q8hrs -duration of treatment at least 6 weeks -Midline placement once blood cultures negative for 48 hours -Monitor labs and for drug toxicity (2) Sepsis due to Staphylococcus aureus Current Visit: Yes Status: Resolved Resolved 4 SIRS criteria on admission without associated lactic acidosis or end organ damage -secondary to MSSA bacteremia -source unknown Afebrile, Leukocytosis resolved as WBC 8.5, Normal HR and RR, hemodynamically stable 05/07/18 Culture x2- S. aureus -Sensitive: oxacillin, vancomycin, levo, cipro, daptomycin; Resistance: clindamycin, erythromycin 05/08/18 Culture x2- S. aureus 05/10/18 Culture x2- S. aureus Plan: -Continue cefazolin (day 7) 2g q8H (3) Osteomyelitis Current Visit: Yes Status: Acute On exam, patient has tenderness to palpation of R medial clavicular head with limitation of active ROM but mostly normal passive ROM CT chest 05/08: Inflammation centered at the right sternoclavicular joint is favored to represent septic arthritis with osteomyelitis. Etiology likely MSSA given positive blood cultures 05/07, 05/08, 05/10 Arthrocentesis of R SC joint performed, significant for 3 cc purulent fluid; sample not submitted for culture or analysis. Plan: -As above, expected course at least 6 weeks Qualifiers: Osteomyelitis type: unspecified type Osteomyelitis location: unspecified site Qualified Code(s): M86.9 - Osteomyelitis, unspecified (4) Septic joint Current Visit: Yes Status: Acute On exam, pain upon active and passive motion of RUE, decreased ROM, tenderness to palpation of R SC joint. Etiology likely MSSA given positive blood cultures 05/07, 05/08, 05/[address] chest 05/08: Inflammation centered at the right sternoclavicular joint is favored to represent septic arthritis with osteomyelitis. Aspiration of R SC joint- volume of 3cc purulent, sample not sent for cytology and culture Plan: -Continue cefazolin 2 grams [id number] -monitor labs and for drug toxicity Qualifiers: Septic arthritis location: shoulder Septic arthritis organism: staphylococcal Laterality: right Qualified Code(s): M00.011 - Staphylococcal arthritis, right shoulder (5) Urinary incontinence Current Visit: Yes Status: Resolved Secondary to cauda equina syndrome; no subsequent episodes -spine surgery following Qualifiers: Urinary Incontinence type: unspecified incontinence Qualified Code(s): R32 - Unspecified urinary incontinence (6) Diabetes mellitus Current Visit: Yes Status: Chronic Glucose 182. -Management per primary team. Qualifiers: Diabetes mellitus type: type 2 Diabetes mellitus fdc insulin use: without fdc use Diabetes mellitus complication status: with hyperglycemia Qualified Code(s): E11.65 - Type 2 diabetes mellitus with hyperglycemia (7) Hypertension Current Visit: Yes Status: Chronic BP 162/74, stable. -Management per primary team. Qualifiers: Hypertension type: essential hypertension Qualified Code(s): I10 - Essential (primary) hypertension (8) Cauda equina syndrome Current Visit: Yes Status: Ruled-out No acute changes. -Surgery consulted (9) Spondylolisthesis at L4-L5 level Current Visit: Yes Status: Chronic No acute changes. -Surgery consulted (10) Decubital ulcer Current Visit: Yes Status: Acute Pain more noticeable per patient; Mild erythema with callus in sacral area, no bleeding ulcers. Emphasized to patient frequent position changes. -Pressure bandage in place -Management per primary team Qualifiers: Pressure injury location: unspecified location Pressure injury stage: unspecified pressure injury stage Qualified Code(s): L89.90 - Pressure ulcer of unspecified site, unspecified stage - Subjective Interval history: Patient seen and examined at bedside this morning. She is in no acute distress but she admits some worsening of the low back pain as well as more noticeable pain over the sacral ulcer area. She endorses that she has improved strength in the RUE and the pain at the R medial clavicular head has diminished but still some tenderness to palpation and active motion; however not as much pain with passive ROM as before. She admits worsening vaginal itch but no dysuria, hemat uria. She denies fever in the past couple days, headache, chest pain, cough, dyspnea, nausea, vomiting, diarrhea, abdominal pain, vaginal discharge, rashes. Infect Dis PN-Objective Data - Labs CBC & Chem 7: 05/15/18 03:21 05/15/18 03:21 Labs: Laboratory Results - last 24 hr 05/12/18 05/12/18 05/12/18 07:06 16:44 21:21 WBC RBC Hgb Hct MCV MCH MCHC RDW Plt Count MPV Immature Gran % Seg Neutrophils % Lymphocytes % Monocytes % Eosinophils % Basophils % Neutrophils # Lymphocytes # Monocytes # Eosinophils # Basophils # Sodium Potassium Chloride Carbon Dioxide BUN Creatinine Est GFR ( Amer) Est GFR (Non-Af Amer) BUN/Creatinine Ratio Glucose POC Glucose 142 H 100 H 182 H Calculated Osmolality Calcium 05/13/18 05/13/18 05/13/18 07:08 11:20 16:40 WBC RBC Hgb Hct MCV MCH MCHC RDW Plt Count MPV Immature Gran % Seg Neutrophils % Lymphocytes % Monocytes % Eosinophils % Basophils % Neutrophils # Lymphocytes # Monocytes # Eosinophils # Basophils # Sodium Potassium Chloride Carbon Dioxide BUN Creatinine Est GFR ( Amer) Est GFR (Non-Af Amer) BUN/Creatinine Ratio Glucose POC Glucose 153 H 216 H 193 H Calculated Osmolality Calcium 05/13/18 05/14/18 05/14/18 21:00 01:16 01:16 WBC 8.5 RBC 3.12 L Hgb 8.4 L Hct 26.2 L MCV 84.0 MCH 26.9 L MCHC 32.1 RDW 13.6 Plt Count 547 H MPV 9.2 L Immature Gran % 1.7 Seg Neutrophils % 70.1 Lymphocytes % 16.7 Monocytes % 9.1 Eosinophils % 2.0 Basophils % 0.4 Neutrophils # 5.9 Lymphocytes # 1.4 Monocytes # 0.8 Eosinophils # 0.2 Basophils # 0.0 Sodium 136 Potassium 3.3 L Chloride 102 Carbon Dioxide 26 BUN 6 L Creatinine 0.45 L Est GFR ( Amer) > 60 Est GFR (Non-Af Amer) > 60 BUN/Creatinine Ratio 13 Glucose 182 H POC Glucose 169 H Calculated Osmolality 284 Calcium 8.4 L Cultures: Cultures 05/13/18 04:03 Blood Culture - Preliminary Peripheral Venipuncture Culture is incubating and being continuously monitored for growth. Final report to follow. 05/13/18 03:55 Blood Culture - Preliminary Peripheral Venipuncture Culture is incubating and being continuously monitored for growth. Final report to follow. 05/10/18 04:50 Blood Culture - Final Peripheral Venipuncture Staphylococcus aureus 05/10/18 04:57 Blood Culture - Final Peripheral Venipuncture Staphylococcus aureus 05/07/18 16:08 Blood Culture - Final Peripheral Venipuncture Staphylococcus aureus 05/07/18 16:13 Blood Culture - Final Peripheral Venipuncture Staphylococcus aureus 05/08/18 09:10 Blood Culture - Final Peripheral Venipuncture Staphylococcus aureus 05/08/18 09:16 Blood Culture - Final Peripheral Venipuncture Staphylococcus aureus Serology 05/08/18 05/08/18 05/07/18 Range/Units 06:52 06:52 16:08 Urine Color (Yellow) Urine Clarity (Clear) Urine pH (5.0-8.0) pH Units Ur Specific [place] (1.010-1.025) Urine Protein (Neg-Trace) mg/dL Urine Glucose (UA) (Normal) mg/dL Urine Ketones (Negative) mg/dL Urine Blood (Negative) Urine Nitrite (Negative) Urine Bilirubin (Negative) Urine Urobilinogen (Normal) mg/dL Ur Leukocyte Esterase (Negative) Urine Microscopic RBC (0-3) per hpf Urine Microscopic WBC (0-3) per hpf Ur Squamous Epith Cells (None-Few) per lpf Urine Bacteria (None-Few) per hpf Hyaline Casts (None-Few) per lpf Ur Culture Indicated? (NO) Urine Osmolality 310 (300-1090) mOsm/kg Urine Sodium 58.6 mEq/L Urine Chloride 74 mEq/L A. baumannii (PCR) Not Detected (Not Detect) Sanaz albicans (PCR) Not Detected (Not Detect) C. glabrata (PCR) Not Detected (Not Detect) C. krusei (PCR) Not Detected (Not Detect) C. parapsilosis (PCR) Not Detected (Not Detect) C. tropicalis (PCR) Not Detected (Not Detect) Enterobacteriac sp PCR Not Detected (Not Detect) E. cloacae complex PCR Not Detected (Not Detect) Enterococcus sp PCR Not Detected (Not Detect) E. coli (PCR) Not Detected (Not Detect) H. influenzae (PCR) Not Detected (Not Detect) Klebsiella oxytoca PCR Not Detected (Not Detect) Klebsiella pneumoniae Not Detected (Not Detect) List. monocytogenes PCR Not Detected (Not Detect) N. meningitidis (PCR) Not Detected (Not Detect) Proteus species (PCR) Not Detected (Not Detect) Serratia marcescens PCR Not Detected (Not Detect) Staphylococcus sp PCR DETECTED A (Not Detect) Staph aureus (PCR) DETECTED A (Not Detect) mecA-Methicil Res Gene Not Detected (Not Detect) Streptococcus sp PCR Not Detected (Not Detect) Group A Strep DNA Not Detected (Not Detect) Group B Strep (PCR) Not Detected (Not Detect) Strep pneumoniae (PCR) Not Detected (Not Detect) P. aeruginosa (PCR) Not Detected (Not Detect) Isela/B-Vanco Res Genes Not Detected (Not Detect) KPC (blaKPC) Detect PCR Not Detected (Not Detect) 05/07/18 Range/Units 11:34 Urine Color Yellow (Yellow) Urine Clarity Clear (Clear) Urine pH 6.0 (5.0-8.0) pH Units Ur Specific [place] 1.030 H (1.010-1.025) Urine Protein 30 H (Neg-Trace) mg/dL Urine Glucose (UA) 500 H (Normal) mg/dL Urine Ketones 40 H (Negative) mg/dL Urine Blood Negative (Negative) Urine Nitrite Negative (Negative) Urine Bilirubin Negative (Negative) Urine Urobilinogen Normal (Normal) mg/dL Ur Leukocyte Esterase Negative (Negative) Urine Microscopic RBC 0-3 (0-3) per hpf Urine Microscopic WBC 5-15 H (0-3) per hpf Ur Squamous Epith Cells Many H (None-Few) per lpf Urine Bacteria None Seen (None-Few) per hpf Hyaline Casts None Seen (None-Few) per lpf Ur Culture Indicated? NO (NO) Urine Osmolality (300-1090) mOsm/kg Urine Sodium mEq/L Urine Chloride mEq/L A. baumannii (PCR) (Not Detect) Sanaz albicans (PCR) (Not Detect) C. glabrata (PCR) (Not Detect) C. krusei (PCR) (Not Detect) C. parapsilosis (PCR) (Not Detect) C. tropicalis (PCR) (Not Detect) Enterobacteriac sp PCR (Not Detect) E. cloacae complex PCR (Not Detect) Enterococcus sp PCR (Not Detect) E. coli (PCR) (Not Detect) H. influenzae (PCR) (Not Detect) Klebsiella oxytoca PCR (Not Detect) Klebsiella pneumoniae (Not Detect) List. monocytogenes PCR (Not Detect) N. meningitidis (PCR) (Not Detect) Proteus species (PCR) (Not Detect) Serratia marcescens PCR (Not Detect) Staphylococcus sp PCR (Not Detect) Staph aureus (PCR) (Not Detect) mecA-Methicil Res Gene (Not Detect) Streptococcus sp PCR (Not Detect) Group A Strep DNA (Not Detect) Group B Strep (PCR) (Not Detect) Strep pneumoniae (PCR) (Not Detect) P. aeruginosa (PCR) (Not Detect) Isela/B-Vanco Res Genes (Not Detect) KPC (blaKPC) Detect PCR (Not Detect) Exam - Constitutional Vitals: Temp Pulse Resp BP Pulse Ox 98.0 F 98 15 162/74 97 05/14/18 06:45 05/14/18 06:45 05/14/18 06:45 05/14/18 06:45 05/14/18 06:45 Exam: GENERAL: Appears as stated age, in no acute distress HEAD: Normocephalic, atraumatic ENT:PERRL, EOMI, conjunctiva pink, oral mucosa moist, some dental work present, no lesions or dentures RESPIRATORY: CTA purnima, no wheezes, rales, rhonchi CHEST: TENDERNESS OVER THE STERNOCLAVICULAR JOINT, no warmth CARDIAC: RRR, Normal S1 and S2, without murmurs, gallops, or rubs EXTREMITIES: No peripheral edema, pulses intact purnima ABDOMEN: soft, BSx4, nontender, no masses MUSCULOSKELETAL: full ROM purnima extremities, R shoulder limited ROM at extremes during active motion but mostly normal with passive, pain with resisted shoulder raise and abduction, edema present at R medial clavicular head, Extremities without clubbing, cyanosis or edema. NEUROLOGIC EXAM:No focal deficits,StrengthRUE - 4/5, LUE 5/5, RLE - 5/5, LLE - 5/5, Sensation intact, symmetric of purnima UE and LE PSYCHIATRIC: Normal mood SKIN: Bandage in place over mildly erythematous area of sacrum, no bleeding lesions.; no appreciable [place] lesions, [place] nodes, splinter hemorrhages Consult Discharge Plan - Plan Referrals: Kirby forrest MD [Primary Care Provider] - - Attending Attestation I examined this patient and my medical decision-making was reviewed with the Resident Physician. I agree with the documented findings, disposition and treatment plan as described except to the extent set forth below. Patient seen and examined. Clinically she looks great. Does not appear toxic. No headaches no visual changes. No chest pain or shortness of breath. No nausea no vomiting. No diarrhea no urinary symptoms. Vital signs last 24 hours reviewed Labs noted Physical exam: HEENT head is normocephalic. No conjunctival hemorrhage Lungs clear to auscultation bilaterally Chest still having tenderness on the clavicular sternal area Cardiovascular regular rate and rhythm no murmur Abdomen soft no guarding Back: No spinal tenderness next Recommendations: 1.MSSA bacteremia complicated with septic emboli to the clavicular sternal joint. TTE and GERTRUDE both negative for vegetation 2.sepsis 3.cauda equina syndrome 4.osteomyelitis of the clavicle 5. Urinary incontinence improved 6. Persistent bacteremia Recommendations: blood cultures continue to be positive repeat cultures 3/3 pending if they continue to be negative, consider picc line placement in am Monitor labs and for drug toxicity Follow-up with me in clinic in 2 weeks
[2018-05-14] MEDS: Mirtazapine 15 MG TABLET PO SCH (22:34)
[2018-05-14] MEDS: Clotrimazole Vag CRM 45 GM TUBE VG SCH (22:35)
[2018-05-14] MEDS ORDERED: Melatonin 3 MG TABLET PO PRN (23:21)
[2018-05-15] MEDS: ceFAZolin 2,000 MG in 0.9 % Sodium Chloride 100 ML IVPB SCH ×3 (00:41→15:34)
[2018-05-15] MEDS: traMADol 50 MG TABLET PO PRN ×4 (01:49→22:09)
[2018-05-15 05:11] LABS: Hematocrit 26.4 % (35.3-44.9); Hemoglobin 8.2 g/dL (11.5-15.4); Mean Corpuscular HGB Conc 31.1 g/dL (31.6-35.5); Mean Corpuscular Hemoglobin 26.5 pg (28.0-33.3); Mean Corpuscular Volume 85.4 fL (83.0-100.0); Mean Platelet Volume 9.7 fL (9.4-12.4); Platelet Count 565 K/mcL (140-400); Red Blood Count 3.09 M/mcL (3.82-4.97); Red Cell Distribution Width 13.7 % (11.5-14.5)
[2018-05-15 05:29] LABS: BUN/Creatinine Ratio 13 (6-26); Blood Urea Nitrogen 7 mg/dL (8-23); Calcium 8.8 mg/dL (8.6-10.3); Carbon Dioxide 26 mEq/L (23-29); Chloride 101 mEq/L (98-107); Glucose 154 mg/dL (70-105); Osmolality,Calculated 287 (280-300); Potassium 3.5 mEq/L (3.5-5.1); Sodium 138 mEq/L (136-145); eGFR For Non-African Americans > 60 (> 60)
--- NOTE | 2018-05-15 06:36 | Internal Med Progress Note ---
<Shiva Higgins - Last Filed: 05/15/18 10:49> Hospitalist Progress Note - Encounter Date of Encounter: 05/15/18 - Exam Vitals: Temp Pulse Resp BP Pulse Ox 98.5 F 91 15 161/77 97 05/15/18 07:46 05/15/18 07:46 05/15/18 07:46 05/15/18 07:46 05/15/18 07:46 - Assessment and Plan (1) Diabetes mellitus Current Visit: Yes Status: Chronic (2) Hypertension Current Visit: Yes Status: Chronic (3) Septic joint Current Visit: Yes Status: Acute (4) Discitis of lumbar region Current Visit: Yes Status: Suspected (5) Anemia Current Visit: Yes Status: Suspected (6) Sepsis due to Staphylococcus aureus Current Visit: Yes Status: Resolved - Time Spent with Patient Total time spent is greater than 50% in coordination of care (as documented) at patient's floor/unit and/or counseling patient: Internal Medicine: Result - Labs CBC & Chem 7: 05/15/18 03:21 05/15/18 03:21 Labs: Short CBC 05/15/18 Range/Units 03:21 WBC 7.4 (4.3-11.1) K/mcL Hgb 8.2 L (11.5-15.4) g/dL Hct 26.4 L (35.3-44.9) % Plt Count 565 H (140-400) K/mcL BMP 05/15/18 03:21 Sodium 138 Potassium 3.5 Chloride 101 Carbon Dioxide 26 BUN 7 L Creatinine 0.53 L Glucose 154 H Calcium 8.8 - ABG Interpretation ABG results: ABG ABG pH 7.54 pH Units (7.32-7.45) H 05/07/18 16:08 ABG pCO2 27 mmHg (35-45) L 05/07/18 16:08 ABG pO2 97 mmHg (85-104) 05/07/18 16:08 ABG O2 Saturation 99 % (95-98) H 05/07/18 16:08 PT/INR, D-dimer PT 15.4 Seconds (9.4-12.1) H 05/08/18 16:04 Consult Discharge Plan - Plan Referrals: Kirby Ansari MD [Primary Care Provider] - - Attending Attestation I examined this patient and my medical decision-making was reviewed with the Resident Physician on 05/15/18. I agree with the documented findings, disposition and treatment plan as described except to the extent set forth below. Ms Sims is currently admitted for sepsis related to MSSA. She remains moderate to high risk due to potential for worsening clinical status. Ms Sims had pain med changed yesterday and is doing better. No fever or chills. Has been getting up with therapy. No CP or SOB. No cough or GI issues. Blood cultures at 48 hours today and appear to be negative. Exam alert Comfortable in bed Mucus membranes dry Normocephalic Heart reg with murmur. Not tachy No wheeze. Good effort Abd nontender Extremities without edema. I/P 1. Sepsis from MSSA - improved and resolved. 2. MSSA bacteremia - blood cx from Monday appear to be negative thus far. If OK with ID would anticipate IV line placement and working on d/c to SNF. 3. R SC joint infection - seems to be improving. 4. Possible diskitis - pain control. 5. ? cauda equina improved Further diagnoses and plan as above. <Ling Cordoba R - Last Filed: 05/15/18 17:45> Hospitalist Progress Note - Encounter Date of Encounter: 05/15/18 Time of Encounter: 06:36 - Subjective Interval History: Patient continues to have no growth in her blood cultures. Plan to insert a peripheral lines patient can continue course of 6 weeks of IV Ancef per infectious disease. Patient has no complaints at this time. No acute change overnight. - Exam Vitals: Temp Pulse Resp BP Pulse Ox 97.8 F 101 18 171/73 99 05/15/18 02:48 05/15/18 02:48 05/15/18 02:48 05/15/18 02:48 05/15/18 02:48 Exam: General: well developed well nourished female in no acute distress Head: normocephalic and atraumatic Eyes: PERRL, EOMI, sclera anicteric Neck: supple, trachea midline Lungs: CTA bilaterally. non-labored breathing. no wheezes, rales, or rhonchi Heart: RRR, no murmurs GI: abdomen soft, non-tender, non-distended. Extremities: warm, peripheral pulses palpable and symmetrical. No edema, cyanos is, or calf tenderness. Neuro: A&Ox3. no focal deficits. no speech difficulty or abnormality Skin: warm, dry, intact - Assessment and Plan (1) Sepsis Current Visit: Yes Status: Acute Assessment and Plan: Pt febrile, tachycardic and with elevated WBC on admission MRI shows possible septic SC joint, possible osteo of SC and L spine 1L fluid bolus, vanc and cipro - will continue to hydrate as sodium levels allow Repeat blood cultures growing Staph aureus with most recent on 05/[address] chest shows septic SC joint with likely septic emboli to lungs TTE and GERTRUDE negative for visible thrombi ID consulted - switched abx to Cefazolin Dr. Angeles to treat back pain conservatively Consulted IR for drainage of septic SC joint, completed 05/09 without complication Continue Cefazolin (Day 8) Repeated Blood cultures 05/13- results pending If remains without growth tomorrow will place residential IV for outpatient abx to complete a 6 week course (2) Septic joint Current Visit: Yes Status: Acute Assessment and Plan: Visualized on MRI - right sternoclavicular joint Right SC joint inflammation on exam with tenderness to palpation CT scan with contrast shows septic joint vs arthritis with extravasation surrounding, along with pulmonary nodules concerning for septic emboli Dr. Duenas consulted - appreciate recs IR tapped on 05/09 Abx Cefazolin day 8 (3) Cauda equina syndrome Current Visit: Yes Status: Ruled-out Assessment and Plan: Was seen by Dr. Bales who concluded that this is not cauda equina syndrome (4) Discitis of lumbar region Current Visit: Yes Status: Suspected Assessment and Plan: Pt with back pain and neurologic symptoms. Seen on MRI - partial compression of the cauda equina Pt with LE weakness and one episode of urinary incontinence Dr. Angeles to treat conservatively - he states he does not believe this is cauda equina syndrome Pain management Q4H neuro checks (5) Osteomyelitis Current Visit: Yes Status: Acute Assessment and Plan: Visualized on MRI - lumbar spine L spine tenderness to palpation Plan as above (6) Diabetes mellitus Current Visit: Yes Status: Chronic Assessment and Plan: Hx of DM Blood sugars elevated due to infection. ACHS accuchecks Low dose SSI (7) Hyponatremia Current Visit: Yes Status: Resolved Assessment and Plan: New onset hyponatremia of 130 Partially correctable with BG Will bolus 1L with normal saline and recheck Q4 neuro and sodium checks Will obtain urine lytes total of 3L given Sodium stable without changes in mental status DC fluids Urine lytes wnl Sodium back to normal on 05/14 Continue to monitor (8) Anemia Current Visit: Yes Status: Suspected Assessment and Plan: H&H 8.04/05.8 - on admission Denies hx of anemia Denies hematuria, hematochezia, and hemetemesis Reports daily nose bleeds Iron panel, ferritin, B12 and folate are suggestive of anemia of chronic disease Stool guiac pending 1 unit PRBCs transfused on 05/11 H&H stable today Transfuse as needed for less than 7 Pt remains asymptomatic (9) Hypertension Current Visit: Yes Status: Chronic Assessment and Plan: Hypertensive in ED - BPs now normal Likely secondary to pain Cont home medications and pain control (10) DVT prophylaxis Current Visit: Yes Status: Acute Assessment and Plan: EPCDs secondary to anemia - Time Spent with Patient Total time spent is greater than 50% in coordination of care (as documented) at patient's floor/unit and/or counseling patient: Internal Medicine: Result - Labs CBC & Chem 7: 05/15/18 03:21 05/15/18 03:21 Labs: Short CBC 05/15/18 Range/Units 03:21 WBC 7.4 (4.3-11.1) K/mcL Hgb 8.2 L (11.5-15.4) g/dL Hct 26.4 L (35.3-44.9) % Plt Count 565 H (140-400) K/mcL BMP 05/15/18 03:21 Sodium 138 Potassium 3.5 Chloride 101 Carbon Dioxide 26 BUN 7 L Creatinine 0.53 L Glucose 154 H Calcium 8.8 - ABG Interpretation ABG results: ABG ABG pH 7.54 pH Units (7.32-7.45) H 05/07/18 16:08 ABG pCO2 27 mmHg (35-45) L 05/07/18 16:08 ABG pO2 97 mmHg (85-104) 05/07/18 16:08 ABG O2 Saturation 99 % (95-98) H 05/07/18 16:08 PT/INR, D-dimer PT 15.4 Seconds (9.4-12.1) H 05/08/18 16:04 <Shiva Higgins A - Last Filed: 05/15/18 10:49> (1) Diabetes mellitus Qualifiers: Diabetes mellitus type: type 2 Diabetes mellitus residential insulin use: without manager intermediate use Diabetes mellitus complication status: with hyperglycemia Qualified Code(s): E11.65 - Type 2 diabetes mellitus with hyperglycemia (2) Hypertension Qualifiers: Hypertension type: essential hypertension Qualified Code(s): I10 - Essential (primary) hypertension (3) Septic joint Qualifiers: Septic arthritis location: shoulder Septic arthritis organism: staphylococcal Laterality: right Qualified Code(s): M00.011 - Staphylococcal arthritis, right shoulder (5) Anemia Qualifiers: Anemia type: other cause Other causes of anemia: chronic disease, other Qualified Code(s): D63.8 - Anemia in other chronic diseases classified elsewhere <Ling Cordoba R - Last Filed: 05/15/18 17:45> (1) Sepsis Qualifiers: Sepsis type: methicillin susceptible Staphylococcus aureus Qualified Code(s): A41.01 - Sepsis due to Methicillin susceptible Staphylococcus aureus (2) Septic joint Qualifiers: Septic arthritis location: shoulder Septic arthritis organism: staphylococcal Laterality: right Qualified Code(s): M00.011 - Staphylococcal arthritis, right shoulder (5) Osteomyelitis Qualifiers: Osteomyelitis type: unspecified type Osteomyelitis location: unspecified site Qualified Code(s): M86.9 - Osteomyelitis, unspecified (6) Diabetes mellitus Qualifiers: Diabetes mellitus type: type 2 Diabetes mellitus residential insulin use: without manager intermediate use Diabetes mellitus complication status: with hyperglycemia Qualified Code(s): E11.65 - Type 2 diabetes mellitus with hyperglycemia (8) Anemia Qualifiers: Anemia type: other cause Other causes of anemia: chronic disease, other Qualified Code(s): D63.8 - Anemia in other chronic diseases classified elsewhere (9) Hypertension Qualifiers: Hypertension type: essential hypertension Qualified Code(s): I10 - Essential (primary) hypertension
[2018-05-15] MEDS: Lisinopril-HCTZ 20-12.5mg TABLET PO SCH (08:49)
[2018-05-15] MEDS: Sennosides/Docusate Sodium TABLET PO SCH ×2 (08:49→19:57)
[2018-05-15] MEDS: Insulin LISPRO 300 UNITS/3 ML VIAL SQ SCH ×4 (08:59→20:02)
--- NOTE | 2018-05-15 09:57 | Infectious Disease Progress No ---
Date of Encounter: 05/15/18 Time of Encounter: 09:25 - Assessment and Plan (1) MSSA bacteremia Current Visit: Yes Status: Acute 05/07/18 Blood Culture- x2 S. aureus -Sensitive: oxacillin, vancomycin, levo, cipro, daptomycin; Resistance: clindamycin, erythromycin 05/08/18 Blood Culture- x2 S. aureus 05/10/18 Blood Culture- x2 S. aureus 05/13/18 Blood Culture- pending -source not clear -complicated; patient has hardware in bilateral feet from previous surgeries and septic arthritis of the R sternoclavicular joint and maybe right shoulder -exam with no other minor López's Criteria TTE 05/08: LVEF 60%, No valvular vegetations visualized, Mild mitral regurg, Mild-moderate tricuspid regurg GERTRUDE 05/11: LVEF 65%, No vegetations visualized, Mild mitral regurg, Mild-moderate tricuspid regurg, Normal LV and RV Plan: -Continue cefazolin (day 8) 2 grams q8hrs -Duration of treatment at least 6 weeks -Midline cleared for placement prior to d/c as blood cultures without growth for >48 hours -Will plan weekly CBC, BUN/Cr, ESR, CRP on Mondays for outpatient monitoring (2) Sepsis due to Staphylococcus aureus Current Visit: Yes Status: Resolved Resolved 4 SIRS criteria on admission without associated lactic acidosis or end organ damage -secondary to MSSA bacteremia -source unknown Afebrile, Leukocytosis resolved as WBC 8.5, Normal HR and RR, hemodynamically stable 05/07/18 Culture x2- S. aureus -Sensitive: oxacillin, vancomycin, levo, cipro, daptomycin; Resistance: clindamycin, erythromycin 05/08/18 Culture x2- S. aureus 05/10/18 Culture x2- S. aureus Plan: -Continue cefazolin (day 8) 2g q8H (3) Osteomyelitis Current Visit: Yes Status: Acute On exam, patient has tenderness to palpation of R medial clavicular head with limitation of active ROM but mostly normal passive ROM CT chest 05/08: Inflammation centered at the right sternoclavicular joint is favored to represent septic arthritis with osteomyelitis. Etiology likely MSSA given positive blood cultures 05/07, 05/08, 05/10 Arthrocentesis of R SC joint performed, significant for 3 cc purulent fluid; sample not submitted for culture or analysis. Plan: -As above, expected course at least 6 weeks Qualifiers: Osteomyelitis type: unspecified type Osteomyelitis location: unspecified site Qualified Code(s): M86.9 - Osteomyelitis, unspecified (4) Septic joint Current Visit: Yes Status: Acute On exam, pain upon active and passive motion of RUE, decreased ROM during active but mostly normal passive, tenderness to palpation of R SC joint. Etiology likely MSSA given positive blood cultures 05/07, 05/08, 05/[address] chest 05/08: Inflammation centered at the right sternoclavicular joint is favored to represent septic arthritis with osteomyelitis. Aspiration of R SC joint- volume of 3cc purulent, sample not sent for cytology and culture Plan: -Continue cefazolin 2 grams [id number] -monitor labs and for drug toxicity Qualifiers: Septic arthritis location: shoulder Septic arthritis organism: st aphylococcal Laterality: right Qualified Code(s): M00.011 - Staphylococcal arthritis, right shoulder (5) Urinary incontinence Current Visit: Yes Status: Resolved Secondary to cauda equina syndrome; no subsequent episodes -spine surgery following Qualifiers: Urinary Incontinence type: unspecified incontinence Qualified Code(s): R32 - Unspecified urinary incontinence (6) Diabetes mellitus Current Visit: Yes Status: Chronic Glucose 154. -Management per primary team. Qualifiers: Diabetes mellitus type: type 2 Diabetes mellitus extermination inspector insulin use: without snf use Diabetes mellitus complication status: with hyperglycemia Qualified Code(s): E11.65 - Type 2 diabetes mellitus with hyperglycemia (7) Hypertension Current Visit: Yes Status: Chronic BP 161/77, elevations over night due to pain otherwise stable. -Management per primary team. Qualifiers: Hypertension type: essential hypertension Qualified Code(s): I10 - Essential (primary) hypertension (8) Cauda equina syndrome Current Visit: Yes Status: Ruled-out No acute changes. -Surgery consulted, conservative management with PT and pharmacotherapy of analgesics, muscle relaxants (9) Spondylolisthesis at L4-L5 level Current Visit: Yes Status: Chronic No acute changes. -Surgery consulted, conservative management with PT and pharmacotherapy of analgesics, muscle relaxants (10) Decubital ulcer Current Visit: Yes Status: Acute Pain remains about the same per patient; Mild erythema with callus in sacral area, no bleeding ulcers. Emphasized to patient frequent position changes. -Pressure bandage in place -Management per primary team Qualifiers: Pressure injury location: sacral region Pressure injury stage: stage 1 Qualified Code(s): L89.151 - Pressure ulcer of sacral region, stage 1 - Subjective Interval history: Patient seen and examined at bedside this morning, in no acute distress. She admits low back pain seems worse as the pain medication was not working as well as before and has made sleeping difficult; the addition of tramadol has seemed to help. She endorses that the pain at the R medial clavicular head is still about the same with less tenderness to palpation and active motion; however not as much pain with passive ROM as before. She admits the vaginal itch has improved with no dysuria, hematuria. She denies fever in the past couple days, headache, chest pain, cough, dyspnea, nausea, vomiting, diarrhea, abdominal pain, vaginal discharge, rashes. Infect Dis PN-Objective Data - Labs CBC & Chem 7: 05/15/18 03:21 05/15/18 03:21 Labs: Laboratory Results - last 24 hr 05/14/18 05/14/18 05/15/18 07:28 12:16 03:21 WBC 7.4 RBC 3.09 L Hgb 8.2 L Hct 26.4 L MCV 85.4 MCH 26.5 L MCHC 31.1 L RDW 13.7 Plt Count 565 H MPV 9.7 Sodium Potassium Chloride Carbon Dioxide BUN Creatinine Est GFR ( Amer) Est GFR (Non-Af Amer) BUN/Creatinine Ratio Glucose POC Glucose 178 H 205 H Calculated Osmolality Calcium 05/15/18 05/15/18 03:21 07:42 WBC RBC Hgb Hct MCV MCH MCHC RDW Plt Count MPV Sodium 138 Potassium 3.5 Chloride 101 Carbon Dioxide 26 BUN 7 L Creatinine 0.53 L Est GFR ( Amer) > 60 Est GFR (Non-Af Amer) > 60 BUN/Creatinine Ratio 13 Glucose 154 H POC Glucose 161 H Calculated Osmolality 287 Calcium 8.8 Cultures: Cultures 05/13/18 04:03 Blood Culture - Preliminary Peripheral Venipuncture Culture is incubating and being continuously monitored for growth. Final report to follow. 05/13/18 03:55 Blood Culture - Preliminary Peripheral Venipuncture Culture is incubating and being continuously monitored for growth. Final report to follow. 05/10/18 04:50 Blood Culture - Final Peripheral Venipuncture Staphylococcus aureus 05/10/18 04:57 Blood Culture - Final Peripheral Venipuncture Staphylococcus aureus 05/07/18 16:08 Blood Culture - Final Peripheral Venipuncture Staphylococcus aureus 05/07/18 16:13 Blood Culture - Final Peripheral Venipuncture Staphylococcus aureus 05/08/18 09:10 Blood Culture - Final Peripheral Venipuncture Staphylococcus aureus 05/08/18 09:16 Blood Culture - Final Peripheral Venipuncture Staphylococcus aureus Serology 05/08/18 05/08/18 05/07/18 Range/Units 06:52 06:52 16:08 Urine Color (Yellow) Urine Clarity (Clear) Urine pH (5.0-8.0) pH Units Ur Specific C[place]shaw (1.010-1.025) Urine Protein (Neg-Trace) mg/dL Urine Glucose (UA) (Normal) mg/dL Urine Ketones (Negative) mg/dL Urine Blood (Negative) Urine Nitrite (Negative) Urine Bilirubin (Negative) Urine Urobilinogen (Normal) mg/dL Ur Leukocyte Esterase (Negative) Urine Microscopic RBC (0-3) per hpf Urine Microscopic WBC (0-3) per hpf Ur Squamous Epith Cells (None-Few) per lpf Urine Bacteria (None-Few) per hpf Hyaline Casts (None-Few) per lpf Ur Culture Indicated? (NO) Urine Osmolality 310 (300-1090) mOsm/kg Urine Sodium 58.6 mEq/L Urine Chloride 74 mEq/L A. baumannii (PCR) Not Detected (Not Detect) Sanaz albicans (PCR) Not Detected (Not Detect) C. glabrata (PCR) Not Detected (Not Detect) C. krusei (PCR) Not Detected (Not Detect) C. parapsilosis (PCR) Not Detected (Not Detect) C. tropicalis (PCR) Not Detected (Not Detect) Enterobacteriac sp PCR Not Detected (Not Detect) E. cloacae complex PCR Not Detected (Not Detect) Enterococcus sp PCR Not Detected (Not Detect) E. coli (PCR) Not Detected (Not Detect) H. influenzae (PCR) Not Detected (Not Detect) Klebsiella oxytoca PCR Not Detected (Not Detect) Klebsiella pneumoniae Not Detected (Not Detect) List. monocytogenes PCR Not Detected (Not Detect) N. meningitidis (PCR) Not Detected (Not Detect) Proteus species (PCR) Not Detected (Not Detect) Serratia marcescens PCR Not Detected (Not Detect) Staphylococcus sp PCR DETECTED A (Not Detect) Staph aureus (PCR) DETECTED A (Not Detect) mecA-Methicil Res Gene Not Detected (Not Detect) Streptococcus sp PCR Not Detected (Not Detect) Group A Strep DNA Not Detected (Not Detect) Group B Strep (PCR) Not Detected (Not Detect) Strep pneumoniae (PCR) Not Detected (Not Detect) P. aeruginosa (PCR) Not Detected (Not Detect) Isela/B-Vanco Res Genes Not Detected (Not Detect) KPC (blaKPC) Detect PCR Not Detected (Not Detect) 05/07/18 Range/Units 11:34 Urine Color Yellow (Yellow) Urine Clarity Clear (Clear) Urine pH 6.0 (5.0-8.0) pH Units Ur Specific C[place]shaw 1.030 H (1.010-1.025) Urine Protein 30 H (Neg-Trace) mg/dL Urine Glucose (UA) 500 H (Normal) mg/dL Urine Ketones 40 H (Negative) mg/dL Urine Blood Negative (Negative) Urine Nitrite Negative (Negative) Urine Bilirubin Negative (Negative) Urine Urobilinogen Normal (Normal) mg/dL Ur Leukocyte Esterase Negative (Negative) Urine Microscopic RBC 0-3 (0-3) per hpf Urine Microscopic WBC 5-15 H (0-3) per hpf Ur Squamous Epith Cells Many H (None-Few) per lpf Urine Bacteria None Seen (None-Few) per hpf Hyaline Casts None Seen (None-Few) per lpf Ur Culture Indicated? NO (NO) Urine Osmolality (300-1090) mOsm/kg Urine Sodium mEq/L Urine Chloride mEq/L A. baumannii (PCR) (Not Detect) Sanaz albicans (PCR) (Not Detect) C. glabrata (PCR) (Not Detect) C. krusei (PCR) (Not Detect) C. parapsilosis (PCR) (Not Detect) C. tropicalis (PCR) (Not Detect) Enterobacteriac sp PCR (Not Detect) E. cloacae complex PCR (Not Detect) Enterococcus sp PCR (Not Detect) E. coli (PCR) (Not Detect) H. influenzae (PCR) (Not Detect) Klebsiella oxytoca PCR (Not Detect) Klebsiella pneumoniae (Not Detect) List. monocytogenes PCR (Not Detect) N. meningitidis (PCR) (Not Detect) Proteus species (PCR) (Not Detect) Serratia marcescens PCR (Not Detect) Staphylococcus sp PCR (Not Detect) Staph aureus (PCR) (Not Detect) mecA-Methicil Res Gene (Not Detect) Streptococcus sp PCR (Not Detect) Group A Strep DNA (Not Detect) Group B Strep (PCR) (Not Detect) Strep pneumoniae (PCR) (Not Detect) P. aeruginosa (PCR) (Not Detect) Isela/B-Vanco Res Genes (Not Detect) KPC (blaKPC) Detect PCR (Not Detect) Exam - Constitutional Vitals: Temp Pulse Resp BP Pulse Ox 98.5 F 91 15 161/77 97 05/15/18 07:46 05/15/18 07:46 05/15/18 07:46 05/15/18 07:46 05/15/18 07:46 Exam: GENERAL: Appears as stated age, in no acute distress HEAD: Normocephalic, atraumatic ENT:PERRL, EOMI, conjunctiva pink, oral mucosa moist, some dental work present, no lesions or dentures RESPIRATORY: CTA purnima, no wheezes, rales, rhonchi CHEST: TENDERNESS OVER THE STERNOCLAVICULAR JOINT, no warmth CARDIAC: RRR, Normal S1 and S2, without murmurs, gallops, or rubs EXTREMITIES: No peripheral edema, pulses intact purnima ABDOMEN: soft, BSx4, nontender, no masses MUSCULOSKELETAL: full ROM purnima extremities, R shoulder limited ROM at extremes during active motion but mostly normal with passive, pain with resisted shoulder raise and abduction, edema present at R medial clavicular head, Extremities without clubbing, cyanosis or edema. NEUROLOGIC EXAM:No focal deficits,StrengthRUE - 4/5, LUE 5/5, RLE - 5/5, LLE - 5/5, Sensation intact, symmetric of purnima UE and LE PSYCHIATRIC: Normal mood SKIN: Bandage in place over mildly erythematous area of sacrum, no bleeding lesions.; no appreciable [place] lesions, Osler nodes, splinter hemorrhages Consult Discharge Plan - Plan Referrals: Kirby Ansari MD [Primary Care Provider] - Prescriptions: ceFAZolin [Ancef] 2,000 mg IVPB Q8HR 33 Days vial - Attending Attestation I examined this patient and my medical decision-making was reviewed with the Resident Physician. I agree with the documented findings, disposition and treatment plan as described except to the extent set forth below. Patient seen and examined. Appears to be doing well clinically. Patient denies any chest pain. No shortness of breath. No diarrhea. No urinary symptoms. Chest pain has improved. Physical exam HEENT: Pupils are equal sclera non-icteric Lungs: Good air sounds bilaterally no wheezing Cardiovascular: Regular rate and rhythm no murmur Abdomen: Soft nontender nondistended Labs reviewed micral noted Assessment and plan: 1.MSSA bacteremia complicated with septic emboli to the clavicular sternal joint. TTE and GERTRUDE both negative for vegetation 2.sepsis 3.cauda equina syndrome 4.osteomyelitis of the clavicle 5. Urinary incontinence improved 6. Persistent bacteremia Recommendations: blood cultures continue to be positive repeat cultures 3/3 pending if they continue to be negative, consider picc line placement in am Monitor labs and for drug toxicity Follow-up with me in clinic in 2 weeks
[2018-05-15] MEDS: *HR* HYDROcodone/Acet 5/325 mg TABLET PO PRN ×2 (13:37→20:02)
--- NOTE | 2018-05-15 16:24 | Electrocardiograph Report ---
[address] [address] Test Date: 2018-05-09 Pat Name: Nirmala Sims Department: 115 Room: [facility] Gender: F Endoscopy Technician: NOLAN : 1955 Requested By: Shiva Higgins Order Number: [id number] Reading MD: Celina Appiah Measurements Intervals [place] Rate: 120 P: 64 NE: 100 QRS: 51 QRSD: 75 T: 39 QT: 338 QTc: 409 Interpretive Statements SINUS TACHYCARDIA WITH SHORT NE INTERVAL NONSPECIFIC ST & T-WAVE ABNORMALITY ABNORMAL RHYTHM ECG Electronically Signed On 05-15-2018 16:23:05 EST by Celina Appiah
[2018-05-15] MEDS: Mirtazapine 15 MG TABLET PO SCH (20:02)
[2018-05-15] MEDS: Clotrimazole Vag CRM 45 GM TUBE VG SCH (20:03)
[2018-05-16] MEDS: ceFAZolin 2,000 MG in 0.9 % Sodium Chloride 100 ML IVPB SCH ×3 (00:47→15:30)
[2018-05-16] MEDS: *HR* HYDROcodone/Acet 5/325 mg TABLET PO PRN ×2 (02:21→21:29)
--- NOTE | 2018-05-16 08:11 | Physician Discharge Referral ---
<Ling Cordoba R - Last Filed: 05/16/18 08:08> [facility] Referral Info Transfer To: [facility] Provider in Charge: Ling Cordoba Provider in Charge after Transfer: PCP Institutional Level of Care: Skilled - Diagnosis (1) Sepsis Priority: Primary Status: Acute (2) Septic joint Priority: Secondary Status: Acute (3) Cauda equina syndrome Priority: Secondary Status: Ruled-out (4) Discitis of lumbar region Priority: Secondary Status: Suspected (5) Osteomyelitis Priority: Secondary Status: Acute (6) Diabetes mellitus Priority: Secondary Status: Chronic (7) Hyponatremia Priority: Secondary Status: Resolved (8) Anemia Priority: Secondary Status: Suspected (9) Hypertension Priority: Secondary Status: Chronic (11) DVT prophylaxis Priority: Secondary Status: Acute - Transfer Medications Prescriptions: ceFAZolin [Ancef] 2,000 mg IVPB Q8HR 33 Days vial Home Medications: Acetaminophen [Tylenol Arthritis] 650 mg PO Q8H PRN 05/07/18 [History] Cholecalciferol (D-3) [Vitamin D] 1,000 unit PO DAILY 05/07/18 [History] Lisinopril-HCTZ 20-12.5 [Prinzide 20-12.5] 1 each PO DAILY 05/07/18 [History] Mirtazapine [Remeron] 15 mg PO HS 05/07/18 [History] Pantoprazole Sodium 40 mg PO DAILY 05/07/18 [History] Pravastatin Sodium [Pravachol] 40 mg PO HS 05/07/18 [History] Tizanidine HCl 4 mg PO Q8H PRN 05/07/18 [History] Vitamin B Complex [B Complex] 1 each PO DAILY 05/07/18 [History] glipiZIDE [Glucotrol] 5 mg PO 1200 05/07/18 [History] ceFAZolin [Ancef] 2,000 mg IVPB Q8HR 33 Days vial 05/16/18 [Rx] Allergies/Adverse Reactions: Allergy/AdvReac Type Severity Reaction Status Date / Time aspirin Allergy Gastrointestinal Verified 05/13/17 16:28 Upset Ether Allergy See Verified 05/13/17 16:26 Comments NSAIDS (Non-Steroidal Allergy Gastrointestinal Verified 05/13/17 16:28 Anti-Inflamma Upset ondansetron Allergy Hallucinati Verified 03/03/18 16:28 [From Zofran (as ng hydrochloride)] Penicillins [PCN] Allergy Rash Verified 05/13/17 16:26 pioglitazone [From Actos] Allergy Hives Verified 05/13/17 16:27 - Respiratory Orders None Smoking Cessation: Smoking cessation has been advised. For more information, call the [employer] [facility] at 9-847-CONF-NOW. - Lab Orders Lab Orders: CBC (weekly), Other (include drug levels w/frequency) (BUN/Cr, ESR, CRP on Mondays) - Ancillary Orders May use pressure relief devices daily prn - Mobility Orders Ambulate - Rehabiliation Orders Rehab Potential: Good Rehab Orders: Sternal Precautions, ROM Exercises, Evaluation for Physical Therapy, Evaluation for Occupational Therapy - Diet Orders Regular CERTIFICATION: I certify that the transfer of the above named patient to an Extended Care Facility is necessary for the continuing treatment of the diagnosis listed. The above information is true and accurate reflection of patient's current condition. Confidential - Redisclosure prohibited without a patient's written consent. <Fiona Ma - Last Filed: 05/16/18 17:22> - Diagnosis (1) Diabetes mellitus Status: Chronic (2) Hypertension Status: Chronic (3) Septic joint Status: Acute (4) Discitis of lumbar region Status: Suspected (5) Anemia Status: Suspected (6) Sepsis due to Staphylococcus aureus Priority: Primary Status: Resolved - Respiratory Orders Smoking Cessation: Smoking cessation has been advised. For more information, call the [facility] at 5-843-PYLF-NOW. - Advance Directives Code Status: Full Code - Diet Orders Regular, No Concentrated Sweets CERTIFICATION: I certify that the transfer of the above named patient to an Extended Care Facility is necessary for the continuing treatment of the diagnosis listed. The above information is true and accurate reflection of patient's current condition. Confidential - Redisclosure prohibited without a patient's written consent.
[2018-05-16] MEDS: Lisinopril-HCTZ 20-12.5mg TABLET PO SCH (09:10)
[2018-05-16] MEDS: Sennosides/Docusate Sodium TABLET PO SCH ×2 (09:10→21:23)
--- NOTE | 2018-05-16 09:16 | Internal Med Progress Note ---
<Fiona Ma - Last Filed: 05/16/18 09:56> Hospitalist Progress Note - Encounter Date of Encounter: 05/16/18 - Exam Vitals: Temp Pulse Resp BP Pulse Ox 97.9 F 86 15 144/78 93 05/16/18 08:06 05/16/18 08:06 05/16/18 08:06 05/16/18 08:06 05/16/18 08:06 - Assessment and Plan (1) Diabetes mellitus Current Visit: Yes Status: Chronic (2) Hypertension Current Visit: Yes Status: Chronic (3) Septic joint Current Visit: Yes Status: Acute (4) Discitis of lumbar region Current Visit: Yes Status: Suspected (5) Anemia Current Visit: Yes Status: Suspected (6) Sepsis due to Staphylococcus aureus Current Visit: Yes Status: Resolved - Time Spent with Patient Total time spent is greater than 50% in coordination of care (as documented) at patient's floor/unit and/or counseling patient: Internal Medicine: Result - Labs CBC & Chem 7: 05/15/18 03:21 05/15/18 03:21 - ABG Interpretation ABG results: ABG ABG pH 7.54 pH Units (7.32-7.45) H 05/07/18 16:08 ABG pCO2 27 mmHg (35-45) L 05/07/18 16:08 ABG pO2 97 mmHg (85-104) 05/07/18 16:08 ABG O2 Saturation 99 % (95-98) H 05/07/18 16:08 PT/INR, D-dimer PT 15.4 Seconds (9.4-12.1) H 05/08/18 16:04 Consult Discharge Plan - Plan Additional Instructions: Scheduled appointment 05/30/18 @2:05pm with Ammy Kendall CNP Referrals: UcKirby forrest MD [Primary Care Provider] - Prescriptions: ceFAZolin [Ancef] 2,000 mg IVPB Q8HR 33 Days vial - Attending Attestation I examined this patient and my medical decision-making was reviewed with the Resident Physician Dr Cordoba. I agree with the documented findings, disposition and treatment plan as described except to the extent set forth below. Ms Sims is admitted with sepsis and back pain 2/2 suspected discitis, as well as SC osteomyelitis, and source found to be MSSA bacteremia awake, chair at bedside. Pain tolerable. no cp, sob, fevers or chills. gen- alert, awake,appears stated age cv- reg rate and rhythm, normal s1,s2, no murmurs appreciated lungs- ctabl, no wheezing, rhonchi or crackles abd- soft, non tender, non distended, + bs neuro- AAOx3, no focal deficits 1. Sepsis from MSSA - resolved. 2. MSSA bacteremia - blood cx 05/13/18 negative thus far. ID following, cefazolin, will need weekly CBC, BUN/Cr, ESR, CRP on Mondays for outpatient monitoring upon dc 3. R SC joint infection - s/p aspiration, cont IV abx 4. Possible discitis - has been seen by spinal surg this admit, cont IV abx 5. umbar stenosis and lumbar radiculopathy, cauda equina ruled out by spine surg-PT/OT, fu with spine surg in 6 weeks to assess for response to conservative tx 6. decub ulcer- pressure bandage, consult wound care, frequent position changes Further diagnoses and plan as noted by resident <Ling Cordoba R - Last Filed: 05/16/18 15:26> Hospitalist Progress Note - Encounter Date of Encounter: 05/16/18 Time of Encounter: 08:25 - Subjective Interval History: Pt stable. Awaiting midline placement and acceptance at SNF. ECF referral has been completed with a continued course of IV abx to last 6 weeks, and weekly lab draws per ID. PICC line order has been placed. Wound care consulted for her chronic sacral ulcer. - Exam Vitals: Temp Pulse Resp BP Pulse Ox 97.9 F 86 15 144/78 93 05/16/18 08:06 05/16/18 08:06 05/16/18 08:06 05/16/18 08:06 05/16/18 08:06 Exam: General: well developed well nourished female in no acute distress Head: normocephalic and atraumatic Eyes: PERRL, EOMI, sclera anicteric Neck: supple, trachea midline Lungs: CTA bilaterally. non-labored breathing. no wheezes, rales, or rhonchi Heart: RRR, no murmurs GI: abdomen soft, non-tender, non-distended. Extremities: warm, peripheral pulses palpable and symmetrical. No edema, cyanosis, or calf tenderness. Neuro: A&Ox3. no focal deficits. no speech difficulty or abnormality Skin: warm, dry, intact - Assessment and Plan (1) Sepsis Current Visit: Yes Status: Acute Assessment and Plan: Pt febrile, tachycardic and with elevated WBC on admission MRI shows possible septic SC joint, possible osteo of SC and L spine 1L fluid bolus, vanc and cipro - will continue to hydrate as sodium levels allow Repeat blood cultures growing Staph aureus with most recent on 05/[address] chest shows septic SC joint with likely septic emboli to lungs TTE and GERTRUDE negative for visible thrombi ID consulted - switched abx to Cefazolin Dr. Angeles to treat back pain conservatively Consulted IR for drainage of septic SC joint, completed 05/09 without com plication Continue Cefazolin (Day 9) Repeated Blood cultures 05/13- no growth to date If remains without growth tomorrow will place forest pathologist IV for outpatient abx to complete a 6 week course (2) Septic joint Current Visit: Yes Status: Acute Assessment and Plan: Visualized on MRI - right sternoclavicular joint Right SC joint inflammation on exam with tenderness to palpation CT scan with contrast shows septic joint vs arthritis with extravasation surrounding, along with pulmonary nodules concerning for septic emboli Dr. Duenas consulted - appreciate recs IR tapped on 05/09 Abx Cefazolin day 9 (3) Cauda equina syndrome Current Visit: Yes Status: Ruled-out Assessment and Plan: Was seen by Dr. Bales who concluded that this is not cauda equina syndrome (4) Discitis of lumbar region Current Visit: Yes Status: Suspected Assessment and Plan: Pt with back pain and neurologic symptoms. Seen on MRI - partial compression of the cauda equina Pt with LE weakness and one episode of urinary incontinence Dr. Angeles to treat conservatively - he states he does not believe this is cauda equina syndrome Pain management Q4H neuro checks (5) Osteomyelitis Current Visit: Yes Status: Acute Assessment and Plan: Visualized on MRI - lumbar spine L spine tenderness to palpation Plan as above (6) Diabetes mellitus Current Visit: Yes Status: Chronic Assessment and Plan: Hx of DM Blood sugars elevated due to infection. ACHS accuchecks Low dose SSI (7) Hyponatremia Current Visit: Yes Status: Resolved Assessment and Plan: New onset hyponatremia of 130 Partially correctable with BG Will bolus 1L with normal saline and recheck Q4 neuro and sodium checks Will obtain urine lytes total of 3L given Sodium stable without changes in mental status DC fluids Urine lytes wnl Sodium back to normal on 05/14 Continue to monitor (8) Anemia Current Visit: Yes Status: Suspected Assessment and Plan: H&H 8.1/24.8 - on admission Denies hx of anemia Denies hematuria, hematochezia, and hemetemesis Reports daily nose bleeds Iron panel, ferritin, B12 and folate are suggestive of anemia of chronic disease Stool guiac pending 1 unit PRBCs transfused on 05/11 H&H stable today Transfuse as needed for less than 7 Pt remains asymptomatic (9) Hypertension Current Visit: Yes Status: Chronic Assessment and Plan: Hypertensive in ED - BPs now normal Likely secondary to pain Cont home medications and pain control (10) Decubital ulcer Current Visit: Yes Status: Acute Assessment and Plan: Chronic, stage 1 Wound care consulted (11) DVT prophylaxis Current Visit: Yes Status: Acute Assessment and Plan: EPCDs secondary to anemia - Time Spent with Patient Total time spent is greater than 50% in coordination of care (as documented) at patient's floor/unit and/or counseling patient: Internal Medicine: Result - Labs CBC & Chem 7: 05/15/18 03:21 05/15/18 03:21 - ABG Interpretation ABG results: ABG ABG pH 7.54 pH Units (7.32-7.45) H 05/07/18 16:08 ABG pCO2 27 mmHg (35-45) L 05/07/18 16:08 ABG pO2 97 mmHg (85-104) 05/07/18 16:08 ABG O2 Saturation 99 % (95-98) H 05/07/18 16:08 PT/INR, D-dimer PT 15.4 Seconds (9.4-12.1) H 05/08/18 16:04 <Ling Cordoba R - Last Filed: 05/16/18 15:26> (1) Sepsis Qualifiers: Sepsis type: methicillin susceptible Staphylococcus aureus Qualified Code(s): A41.01 - Sepsis due to Methicillin susceptible Staphylococcus aureus (2) Septic joint Qualifiers: Septic arthritis location: shoulder Septic arthritis organism: staphylococcal Laterality: right Qualified Code(s): M00.011 - Staphylococcal arthritis, right shoulder (5) Osteomyelitis Qualifiers: Osteomyelitis type: unspecified type Osteomyelitis location: unspecified site Qualified Code(s): M86.9 - Osteomyelitis, unspecified (6) Diabetes mellitus Qualifiers: Diabetes mellitus type: type 2 Diabetes mellitus forest pathologist insulin use: without forest pathologist use Diabetes mellitus complication status: with hyperglycemia Qualified Code(s): E11.65 - Type 2 diabetes mellitus with hyperglycemia (8) Anemia Qualifiers: Anemia type: other cause Other causes of anemia: chronic disease, other Herve lified Code(s): D63.8 - Anemia in other chronic diseases classified elsewhere (9) Hypertension Qualifiers: Hypertension type: essential hypertension Qualified Code(s): I10 - Essential (primary) hypertension (10) Decubital ulcer Qualifiers: Pressure injury location: sacral region Pressure injury stage: stage 1 Qualified Code(s): L89.151 - Pressure ulcer of sacral region, stage 1
[2018-05-16] MEDS: traMADol 50 MG TABLET PO PRN ×3 (09:18→22:36)
[2018-05-16] MEDS: Insulin LISPRO 300 UNITS/3 ML VIAL SQ SCH ×4 (09:20→21:24)
--- NOTE | 2018-05-16 10:22 | Infectious Disease Progress No ---
Date of Encounter: 05/16/18 Time of Encounter: 09:50 - Assessment and Plan (1) MSSA bacteremia Current Visit: Yes Status: Acute 05/07/18 Blood Culture- x2 S. aureus -Sensitive: oxacillin, vancomycin, levo, cipro, daptomycin; Resistance: clindamycin, erythromycin 05/08/18 Blood Culture- x2 S. aureus 05/10/18 Blood Culture- x2 S. aureus 05/13/18 Blood Culture- pending -source not clear -complicated; patient has hardware in bilateral feet from previous surgeries and septic arthritis of the R sternoclavicular joint and maybe right shoulder -exam with no other minor López's Criteria TTE 05/08: LVEF 60%, No valvular vegetations visualized, Mild mitral regurg, Mild-moderate tricuspid regurg GERTRUDE 05/11: LVEF 65%, No vegetations visualized, Mild mitral regurg, Mild-moderate tricuspid regurg, Normal LV and RV Plan: -Continue cefazolin (day 8) 2 grams q8hrs -Duration of treatment at least 6 weeks -Midline cleared for placement prior to d/c as blood cultures without growth for >48 hours -Will plan weekly CBC, BUN/Cr, ESR, CRP on Mondays for outpatient monitoring -Scheduled outpatient follow-up in two weeks (2) Sepsis due to Staphylococcus aureus Current Visit: Yes Status: Resolved Resolved 4 SIRS criteria on admission without associated lactic acidosis or end organ damage -secondary to MSSA bacteremia -source unknown Afebrile, Leukocytosis resolved as WBC 8.5, Normal HR and RR, hemodynamically stable 05/07/18 Culture x2- S. aureus -Sensitive: oxacillin, vancomycin, levo, cipro, daptomycin; Resistance: clindamycin, erythromycin 05/08/18 Culture x2- S. aureus 05/10/18 Culture x2- S. aureus Plan: -Continue cefazolin (day 8) 2g q8H (3) Osteomyelitis Current Visit: Yes Status: Acute On exam, patient has tenderness to palpation of R medial clavicular head with limitation of active ROM but mostly normal passive ROM CT chest 05/08: Inflammation centered at the right sternoclavicular joint is favo red to represent septic arthritis with osteomyelitis. Etiology likely MSSA given positive blood cultures 05/07, 05/08, 05/10 Arthrocentesis of R SC joint performed, significant for 3 cc purulent fluid; sample not submitted for culture or analysis. Plan: -As above, expected course at least 6 weeks Qualifiers: Osteomyelitis type: unspecified type Osteomyelitis location: unspecified site Qualified Code(s): M86.9 - Osteomyelitis, unspecified (4) Septic joint Current Visit: Yes Status: Acute On exam, pain upon active and passive motion of RUE, decreased ROM during active but mostly normal passive, tenderness to palpation of R SC joint. Etiology likely MSSA given positive blood cultures 05/07, 05/08, 05/[address] chest 05/08: Inflammation centered at the right sternoclavicular joint is favored to represent septic arthritis with osteomyelitis. Aspiration of R SC joint- volume of 3cc purulent, sample not sent for cytology and culture Plan: -Continue cefazolin 2 grams [id number] -monitor labs and for drug toxicity Qualifiers: Septic arthritis location: shoulder Septic arthritis organism: staphylococcal Laterality: right Qualified Code(s): M00.011 - Staphylococcal arthritis, right shoulder (5) Urinary incontinence Current Visit: Yes Status: Resolved Secondary to cauda equina syndrome; no subsequent episodes -spine surgery following Qualifiers: Urinary Incontinence type: unspecified incontinence Qualified Code(s): R32 - Unspecified urinary incontinence (6) Diabetes mellitus Current Visit: Yes Status: Chronic POC Glucose 156. -Management per primary team. Qualifiers: Diabetes mellitus type: type 2 Diabetes mellitus laborer marine terminal insulin use: without laborer marine terminal use Diabetes mellitus complication status: with hyperglycemia Qualified Code(s): E11.65 - Type 2 diabetes mellitus with hyperglycemia (7) Hypertension Current Visit: Yes Status: Chronic BP 144/78, stable. -Management per primary team. Qualifiers: Hypertension type: essential hypertension Qualified Code(s): I10 - Essential (primary) hypertension (8) Cauda equina syndrome Current Visit: Yes Status: Ruled-out No acute changes. -Surgery consulted, conservative management with PT and pharmacotherapy of analgesics, muscle relaxants (9) Spondylolisthesis at L4-L5 level Current Visit: Yes Status: Chronic No acute changes. -Surgery consulted, conservative management with PT and pharmacotherapy of analgesics, muscle relaxants (10) Decubital ulcer Current Visit: Yes Status: Acute Mild erythema with callus in sacral area, no bleeding ulcers. Emphasized to patient frequent position changes. -Pressure bandage in place -Management per primary team Qualifiers: Pressure injury location: sacral region Pressure injury stage: stage 1 Qualified Code(s): L89.151 - Pressure ulcer of sacral region, stage 1 - Subjective Interval history: Patient seen and examined at bedside this morning, in no acute distress. She admits low back pain flared this morning but diminished after receiving tramadol. She also admits that the pain remains at the R medial clavicular head with tenderness to palpation and active motion however she is able to lift her R arm almost above her head. She endorses some swelling in her feet but denies fever, fatigue, headache, chest pain, cough, dyspnea, nausea, vomiting, diarrhea, abdominal pain, vaginal discharge, rashes. Infect Dis PN-Objective Data - Labs CBC & Chem 7: 05/17/18 02:45 05/17/18 02:45 Labs: Laboratory Results - last 24 hr 05/15/18 05/15/18 05/15/18 11:31 16:15 18:57 POC Glucose 253 H 159 H 223 H 05/16/18 07:16 POC Glucose 156 H Cultures: Cultures 05/13/18 04:03 Blood Culture - Preliminary Peripheral Venipuncture Culture is incubating and being continuously monitored for growth. Final report to follow. 05/13/18 03:55 Blood Culture - Preliminary Peripheral Venipuncture Culture is incubating and being continuously monitored for growth. Final report to follow. 05/10/18 04:50 Blood Culture - Final Peripheral Venipuncture Staphylococcus aureus 05/10/18 04:57 Blood Culture - Final Peripheral Venipuncture Staphylococcus aureus 05/07/18 16:08 Blood Culture - Final Peripheral Venipuncture Staphylococcus aureus 05/07/18 16:13 Blood Culture - Final Peripheral Venipuncture Staphylococcus aureus 05/08/18 09:10 Blood Culture - Final Peripheral Venipuncture Staphylococcus aureus 05/08/18 09:16 Blood Culture - Final Peripheral Venipuncture Staphylococcus aureus Serology 05/15/18 05/08/18 05/08/18 Range/Units 08:43 06:52 06:52 Urine Color (Yellow) Urine Clarity (Clear) Urine pH (5.0-8.0) pH Units Ur Specific [place] (1.010-1.025) Urine Protein (Neg-Trace) mg/dL Urine Glucose (UA) (Normal) mg/dL Urine Ketones (Negative) mg/dL Urine Blood (Negative) Urine Nitrite (Negative) Urine Bilirubin (Negative) Urine Urobilinogen (Normal) mg/dL Ur Leukocyte Esterase (Negative) Urine Microscopic RBC (0-3) per hpf Urine Microscopic WBC (0-3) per hpf Ur Squamous Epith Cells (None-Few) per lpf Urine Bacteria (None-Few) per hpf Hyaline Casts (None-Few) per lpf Ur Culture Indicated? (NO) Urine Osmolality 310 (300-1090) mOsm/kg Urine Sodium 58.6 mEq/L Urine Chloride 74 mEq/L Stool Occult Blood Negative (Negative) A. baumannii (PCR) (Not Detect) Sanaz albicans (PCR) (Not Detect) C. glabrata (PCR) (Not Detect) C. krusei (PCR) (Not Detect) C. parapsilosis (PCR) (Not Detect) C. tropicalis (PCR) (Not Detect) Enterobacteriac sp PCR (Not Detect) E. cloacae complex PCR (Not Detect) Enterococcus sp PCR (Not Detect) E. coli (PCR) (Not Detect) H. influenzae (PCR) (Not Detect) Klebsiella oxytoca PCR (Not Detect) Klebsiella pneumoniae (Not Detect) List. monocytogenes PCR (Not Detect) N. meningitidis (PCR) (Not Detect) Proteus species (PCR) (Not Detect) Serratia marcescens PCR (Not Detect) Staphylococcus sp PCR (Not Detect) Staph aureus (PCR) (Not Detect) mecA-Methicil Res Gene (Not Detect) Streptococcus sp PCR (Not Detect) Group A Strep DNA (Not Detect) Group B Strep (PCR) (Not Detect) Strep pneumoniae (PCR) (Not Detect) P. aeruginosa (PCR) (Not Detect) Isela/B-Vanco Res Genes (Not Detect) KPC (blaKPC) Detect PCR (Not Detect) 05/07/18 05/07/18 Range/Units 16:08 11:34 Urine Color Yellow (Yellow) Urine Clarity Clear (Clear) Urine pH 6.0 (5.0-8.0) pH Units Ur Specific [place] 1.030 H (1.010-1.025) Urine Protein 30 H (Neg-Trace) mg/dL Urine Glucose (UA) 500 H (Normal) mg/dL Urine Ketones 40 H (Negative) mg/dL Urine Blood Negative (Negative) Urine Nitrite Negative (Negative) Urine Bilirubin Negative (Negative) Urine Urobilinogen Normal (Normal) mg/dL Ur Leukocyte Esterase Negative (Negative) Urine Microscopic RBC 0-3 (0-3) per hpf Urine Microscopic WBC 5-15 H (0-3) per hpf Ur Squamous Epith Cells Many H (None-Few) per lpf Urine Bacteria None Seen (None-Few) per hpf Hyaline Casts None Seen (None-Few) per lpf Ur Culture Indicated? NO (NO) Urine Osmolality (300-1090) mOsm/kg Urine Sodium mEq/L Urine Chloride mEq/L Stool Occult Blood (Negative) A. baumannii (PCR) Not Detected (Not Detect) Sanaz albicans (PCR) Not Detected (Not Detect) C. glabrata (PCR) Not Detected (Not Detect) C. krusei (PCR) Not Detected (Not Detect) C. parapsilosis (PCR) Not Detected (Not Detect) C. tropicalis (PCR) Not Detected (Not Detect) Enterobacteriac sp PCR Not Detected (Not Detect) E. cloacae complex PCR Not Detected (Not Detect) Enterococcus sp PCR Not Detected (Not Detect) E. coli (PCR) Not Detected (Not Detect) H. influenzae (PCR) Not Detected (Not Detect) Klebsiella oxytoca PCR Not Detected (Not Detect) Klebsiella pneumoniae Not Detected (Not Detect) List. monocytogenes PCR Not Detected (Not Detect) N. meningitidis (PCR) Not Detected (Not Detect) Proteus species (PCR) Not Detected (Not Detect) Serratia marcescens PCR Not Detected (Not Detect) Staphylococcus sp PCR DETECTED A (Not Detect) Staph aureus (PCR) DETECTED A (Not Detect) mecA-Methicil Res Gene Not Detected (Not Detect) Streptococcus sp PCR Not Detected (Not Detect) Group A Strep DNA Not Detected (Not Detect) Group B Strep (PCR) Not Detected (Not Detect) Strep pneumoniae (PCR) Not Detected (Not Detect) P. aeruginosa (PCR) Not Detected (Not Detect) Isela/B-Vanco Res Genes Not Detected (Not Detect) KPC (blaKPC) Detect PCR Not Detected (Not Detect) Exam - Constitutional Vitals: Temp Pulse Resp BP Pulse Ox 97.9 F 86 15 144/78 93 05/16/18 08:06 05/16/18 08:06 05/16/18 08:06 05/16/18 08:06 05/16/18 08:06 Exam: GENERAL: Appears as stated age, in no acute distress HEAD: Normocephalic, atraumatic ENT:PERRL, EOMI, conjunctiva pink, oral mucosa moist, some dental work present, no lesions or dentures RESPIRATORY: CTA purnima, no wheezes, rales, rhonchi CHEST: TENDERNESS OVER THE STERNOCLAVICULAR JOINT, no warmth CARDIAC: RRR, Normal S1 and S2, without murmurs, gallops, or rubs EXTREMITIES: 1+ pitting edema purnima feet, pulses intact purnima ABDOMEN: soft, BSx4, nontender, no masses MUSCULOSKELETAL: full ROM purnima extremities, R shoulder limited ROM at extremes during active motion but mostly normal with passive, pain with resisted shoulder raise and abduction, edema present at R medial clavicular head, Extremities without clubbing, cyanosis or edema. NEUROLOGIC EXAM:No focal deficits,StrengthRUE - 4/5, LUE 5/5, RLE - 5/5, LLE - 5/5, Sensation intact, symmetric of purnima UE and LE PSYCHIATRIC: Normal mood SKIN: Bandage in place over mildly erythematous area of sacrum, no bleeding les ions.; no appreciable [place] lesions, [place] nodes, splinter hemorrhages Consult Discharge Plan - Plan Additional Instructions: Scheduled appointment 05/30/18 @2:05pm with Ammy Kendall CNP Referrals: Kirby Ansari MD [Primary Care Provider] - Prescriptions: ceFAZolin [Ancef] 2,000 mg IVPB Q8HR 33 Days vial - Attending Attestation I examined this patient and my medical decision-making was reviewed with the Resident Physician. I agree with the documented findings, disposition and treatment plan as described except to the extent set forth below. Patient seen and examined. Appears to be doing well clinically. Patient denies any chest pain. No shortness of breath. No diarrhea. No urinary symptoms. Chest pain has improved. Physical exam HEENT: Pupils are equal sclera non-icteric Lungs: Good air sounds bilaterally no wheezing Cardiovascular: Regular rate and rhythm no murmur Abdomen: Soft nontender nondistended Labs reviewed micral noted Assessment and plan: 1.MSSA bacteremia complicated with septic emboli to the clavicular sternal joint. TTE and GERTRUDE both negative for vegetation 2.sepsis 3.cauda equina syndrome 4.osteomyelitis of the clavicle 5. Urinary incontinence improved 6. Persistent bacteremia Recommendations: blood cultures continue to be positive repeat cultures 3/3 pending if they continue to be negative, consider picc line placement in am Monitor labs and for drug toxicity Follow-up with me in clinic in 2 weeks
[2018-05-16] MEDS ORDERED: Lidocaine -MPF 1% 5 ML AMPUL INFILT ONE (11:23)
[2018-05-16] MEDS: Mirtazapine 15 MG TABLET PO SCH (21:23)
[2018-05-16] MEDS: Clotrimazole Vag CRM 45 GM TUBE VG SCH (21:24)
[2018-05-17] MEDS: ceFAZolin 2,000 MG in 0.9 % Sodium Chloride 100 ML IVPB SCH ×3 (02:31→16:07)
[2018-05-17 03:17] LABS: Hematocrit 25.8 % (35.3-44.9); Hemoglobin 8.1 g/dL (11.5-15.4); Mean Corpuscular HGB Conc 31.4 g/dL (31.6-35.5); Mean Corpuscular Hemoglobin 26.4 pg (28.0-33.3); Mean Platelet Volume 9.2 fL (9.4-12.4); Platelet Count 512 K/mcL (140-400); Red Blood Count 3.07 M/mcL (3.82-4.97); Red Cell Distribution Width 14.1 % (11.5-14.5)
[2018-05-17 03:18] LABS: BUN/Creatinine Ratio 14 (6-26); Blood Urea Nitrogen 7 mg/dL (8-23); Calcium 9.3 mg/dL (8.6-10.3); Carbon Dioxide 30 mEq/L (23-29); Chloride 98 mEq/L (98-107); Glucose 182 mg/dL (70-105); Osmolality,Calculated 287 (280-300); Potassium 3.6 mEq/L (3.5-5.1); Sodium 137 mEq/L (136-145); eGFR For Non-African Americans > 60 (> 60)
[2018-05-17] MEDS: *HR* HYDROcodone/Acet 5/325 mg TABLET PO PRN (05:46)
[2018-05-17] MEDS: Lisinopril-HCTZ 20-12.5mg TABLET PO SCH (08:24)
[2018-05-17] MEDS: traMADol 50 MG TABLET PO PRN ×2 (08:24→16:10)
[2018-05-17] MEDS: Insulin LISPRO 300 UNITS/3 ML VIAL SQ SCH ×3 (08:25→18:05)
--- NOTE | 2018-05-17 11:30 | Discharge Summary ---
<Ling Cordoba Nara - Last Filed: 05/17/18 13:34> - NOTES TO OUTPATIENT PROVIDER Notes to Outpatient Provider: Patient will be discharged to extended care facility for prolonged treatment with IV antibiotics for at least 6 weeks for her MSSA positive blood cultures. She will need follow-up with infectious dise ase in 2 weeks and continued lab monitoring weekly including CBC, BUN/Cr, ESR, CRP. Orders not resulted at time of discharge: Pending orders 05/13/18 04:03 Culture,Blood [BC] AM 0400 Date of Encounter: 05/17/18 Time of Encounter: 11:30 - Discharge Diagnosis (1) Sepsis Priority: Primary Status: Acute Qualifiers: Sepsis type: methicillin susceptible Staphylococcus aureus Qualified Code(s): A41.01 - Sepsis due to Methicillin susceptible Staphylococcus aureus (2) Septic joint Priority: Secondary Status: Acute Qualifiers: Septic arthritis location: shoulder Septic arthritis organism: staphylococcal Laterality: right Qualified Code(s): M00.011 - Staphylococcal arthritis, right shoulder (3) Cauda equina syndrome Priority: Secondary Status: Ruled-out (4) Discitis of lumbar region Priority: Secondary Status: Suspected (5) Osteomyelitis Priority: Secondary Status: Acute Qualifiers: Osteomyelitis type: unspecified type Osteomyelitis location: unspecified site Qualified Code(s): M86.9 - Osteomyelitis, unspecified (6) Diabetes mellitus Priority: Secondary Status: Chronic Qualifiers: Diabetes mellitus type: type 2 Diabetes mellitus penitentiary insulin use: without penitentiary use Diabetes mellitus complication status: with hyperglycemia Qualified Code(s): E11.65 - Type 2 diabetes mellitus with hyperglycemia (7) Hyponatremia Priority: Secondary Status: Resolved (8) Anemia Priority: Secondary Status: Suspected Qualifiers: Anemia type: other cause Other causes of anemia: chronic disease, other Qualified Code(s): D63.8 - Anemia in other chronic diseases classified elsewhere (9) Hypertension Priority: Secondary Status: Chronic Qualifiers: Hypertension type: essential hypertension Qualified Code(s): I10 - Essential (primary) hypertension (10) Decubital ulcer Priority: Secondary Status: Acute Qualifiers: Pressure injury location: sacral region Pressure injury stage: stage 1 Qualified Code(s): L89.151 - Pressure ulcer of sacral region, stage 1 Hospital course: Ms. Sims is a 63 year old female who initially presented to the emergency department on 05/07 with the chief complaint of worsening back and neck pain, right shoulder pain, and fatigue. She had been experiencing these symptoms for 3 weeks and they had been gradually getting worse. In the ER head CT, cervical MRI, thoracic MRI, lumbar MRI were all performed for the concern of cauda equina syndrome as the patient stated that she had had one episode of urinary incontinence. Lumbar spine MRI showed discitis versus osteomyelitis with some impingement of the cauda equina. Thoracic MRI showed a septic sternoclavicular joint on the right side and likely septic emboli to both lungs. The patient was admitted with a stat neurosurgery consult to Dr. Bales. Dr. Bales assessed the patient and determined that she did not have cauda equina syndrome. The patient was septic on admission with 4 out of 4 surgical criteria and bacteremia. She had her right sternoclavicular joint drained by interventional radiology on 05/09. Infectious disease was consult on this patient for antibiotic management. She had a total of 6 positive blood cultures drawn from 05/07-05/10. Transthoracic echo and transesophageal echo of the heart did not demonstrate any vegetations on any valves. Blood cultures drawn on 05/13 did not grow any bacteria. The patient was on Ancef for a total of 9 days while in the hospital and infectious disease recommends at least a 6 week course. She will have infectious disease follow-up scheduled for 2 weeks. She will be discharged to a retirement facility for continuation of Ancef. The patient will be discharged in good condition without any back or right shoulder pain and with her vital signs returned to normal. She is now able to ambulate on her own. - Time Spent with Patient Total time spent providing and/or coordinating discharge services: - Discharge Medications Prescriptions: New ceFAZolin [Ancef] 2,000 mg IVPB Q8HR 33 Days vial Continue glipiZIDE [Glucotrol] 5 mg PO 1200 Vitamin B Complex [B Complex] 1 each PO DAILY Cholecalciferol (D-3) [Vitamin D] 1,000 unit PO DAILY Pravastatin Sodium [Pravachol] 40 mg PO HS Tizanidine HCl 4 mg PO Q8H PRN PRN Reason: Muscle Spasm Mirtazapine [Remeron] 15 mg PO HS Pantoprazole Sodium 40 mg PO DAILY Lisinopril-HCTZ 20-12.5 [Prinzide 20-12.5] 1 each PO DAILY Acetaminophen [Tylenol Arthritis] 650 mg PO Q8H PRN PRN Reason: Pain Home Medications: Acetaminophen [Tylenol Arthritis] 650 mg PO Q8H PRN 05/07/18 [History] Cholecalciferol (D-3) [Vitamin D] 1,000 unit PO DAILY 05/07/18 [History] Lisinopril-HCTZ 20-12.5 [Prinzide 20-12.5] 1 each PO DAILY 05/07/18 [History] Mirtazapine [Remeron] 15 mg PO HS 05/07/18 [History] Pantoprazole Sodium 40 mg PO DAILY 05/07/18 [History] Pravastatin Sodium [Pravachol] 40 mg PO HS 05/07/18 [History] Tizanidine HCl 4 mg PO Q8H PRN 05/07/18 [History] Vitamin B Complex [B Complex] 1 each PO DAILY 05/07/18 [History] glipiZIDE [Glucotrol] 5 mg PO 1200 05/07/18 [History] ceFAZolin [Ancef] 2,000 mg IVPB Q8HR 33 Days vial 05/16/18 [Rx] Allergies/Adverse Reactions: Allergy/AdvReac Type Severity Reaction Status Date / Time aspirin Allergy Gastrointestinal Verified 05/13/17 16:28 Upset Ether Allergy See Verified 05/13/17 16:26 Comments NSAIDS (Non-Steroidal Allergy Gastrointestinal Verified 05/13/17 16:28 Anti-Inflamma Upset ondansetron Allergy Hallucinati Verified 05/13/17 16:28 [From Zofran (as ng hydrochloride)] Penicillins [PCN] Allergy Rash Verified 05/13/17 16:26 pioglitazone [From Actos] Allergy Hives Verified 05/13/17 16:27 Date of admission: 05/07/18 15:50 Primary care physician: Kirby Ansari MD Consults: 05/07/18 16:29 Consult to Infectious Diseases [CONS] Stat Consulting Provider: Infectious Disease [place] Reason for Consult: possible septic joint, osteo Call Completed: Yes 05/07/18 17:52 Consult to Orthopedic Surgery [CONS] Routine Consulting Provider: Colby Bales Jr Reason for Consult: severe spinal stenosis with mass effect on cauda equina (consult placed from ED) Call Completed: Yes 05/08/18 11:09 Consult to Occupational Therapy [CONS] Routine Comment: Evaluate, develop and implement POC Reason for Consult: low back pain, LE weakness Does patient have active BEDREST order?: No Is patient medically & hemodynamically stable?: Yes Consult to Physical Therapy [CONS] Routine Comment: Evaluate, develop and implement POC Reason for Consult: low back pain, LE weakness Does patient have active BEDREST order?: No Is patient medically & hemodynamically stable?: Yes 05/08/18 14:33 Consult to Interventional Radiology [CONS] Stat Consulting Provider: Radiology Interventional [place] Reason for Consult: septic joint right SC on CT scan Call Completed: Yes 05/10/18 14:44 Consult to Destination Sign Repairer [CONS] Routine Reason for SW Consult: patient needs placement 05/14/18 23:20 Consult to Pastoral Services [CONS] Routine Comment: 05/16/18 11:29 Consult to Wound Care [CONS] Routine Reason for Consult: sacral decubitus ulcer stage 1 Call Completed: No Discharging clinician: Ling Cordoba - Constitutional Vitals: Temp Pulse Resp BP Pulse Ox 98.4 F 103 14 124/78 95 05/17/18 11:02 05/17/18 11:02 05/17/18 11:02 05/17/18 11:02 05/17/18 11:02 General appearance: Present: cooperative, mild distress, A&O X 3, pleasant, answers questions appropriately Exam: General: well developed well nourished female in no acute distress Head: normocephalic and atraumatic Eyes: PERRL, EOMI, sclera anicteric Neck: supple, trachea midline Lungs: CTA bilaterally. non-labored breathing. no wheezes, rales, or rhonchi Heart: RRR, no murmurs GI: abdomen soft, non-tender, non-distended. Extremities: warm, peripheral pulses palpable and symmetrical. No edema, cyanosis, or calf tenderness. Neuro: A&Ox3. no focal deficits. no speech difficulty or abnormality Skin: warm, dry, intact - Patient Status Disposition: Transfer SNF Condition: Good Functional capacity at discharge: independent ambulation Overall status at discharge: patient is progressing back to baseline - Discharge Instructions Follow Up With: Kirby forrest MD [Primary Care Provider] - Colby Bales Jr, MD [Partnered Physician] - ([address] Bales) Forms: ED Satisfaction Letter Additional Instructions: Scheduled appointment 05/30/18 @2:05pm with Ammy Kendall CNP Continue IV antibiotics for sepsis. Follow-up as scheduled with infectious disease. - Diet and Activity Activity: as per physical therapy, increase activity as tolerated, resume usual activities as tolerated Diet: diabetic diet <Fiona Ma - Last Filed: 05/17/18 14:31> Orders not resulted at time of discharge: Pending orders 05/13/18 04:03 Culture,Blood [BC] AM 0400 Date of Encounter: 05/17/18 - Discharge Diagnosis (1) Diabetes mellitus Status: Chronic Qualifiers: Diabetes mellitus type: type 2 Diabetes mellitus termite control servicer insulin use: without termite control servicer use Diabetes mellitus complication status: with hyperglycemia Qualified Code(s): E11.65 - Type 2 diabetes mellitus with hyper glycemia (2) Hypertension Status: Chronic Qualifiers: Hypertension type: essential hypertension Qualified Code(s): I10 - Essential (primary) hypertension (3) Septic joint Status: Acute Qualifiers: Septic arthritis location: shoulder Septic arthritis organism: staphylococcal Laterality: right Qualified Code(s): M00.011 - Staphylococcal arthritis, right shoulder (4) Discitis of lumbar region Status: Suspected (5) Anemia Status: Suspected Qualifiers: Anemia type: other cause Other causes of anemia: chronic disease, other Qualified Code(s): D63.8 - Anemia in other chronic diseases classified elsewhere (6) Sepsis due to Staphylococcus aureus Status: Resolved Hospital course: Ms. Sims is a 63 year old female - Time Spent with Patient Total time spent providing and/or coordinating discharge services: Time spent: Greater than 30 minutes (45 min) Date of admission: 05/07/18 15:50 Primary care physician: Kirby Ansari MD Consults: 05/07/18 16:29 Consult to Infectious Diseases [CONS] Stat Consulting Provider: Infectious Disease [place] Reason for Consult: possible septic joint, osteo Call Completed: Yes 05/07/18 17:52 Consult to Orthopedic Surgery [CONS] Routine Consulting Provider: Colby Bales Jr Reason for Consult: severe spinal stenosis with mass effect on cauda equina (consult placed from ED) Call Completed: Yes 05/08/18 11:09 Consult to Occupational Therapy [CONS] Routine Comment: Evaluate, develop and implement POC Reason for Consult: low back pain, LE weakness Does patient have active BEDREST order?: No Is patient medically & hemodynamically stable?: Yes Consult to Physical Therapy [CONS] Routine Comment: Evaluate, develop and implement POC Reason for Consult: low back pain, LE weakness Does patient have active BEDREST order?: No Is patient medically & hemodynamically stable?: Yes 05/08/18 14:33 Consult to Interventional Radiology [CONS] Stat Consulting Provider: Radiology Interventional Cols Reason for Consult: septic joint right SC on CT scan Call Completed: Yes 05/10/18 14:44 Consult to Destination Sign Repairer [CONS] Routine Reason for SW Consult: patient needs placement 05/14/18 23:20 Consult to Pastoral Services [CONS] Routine Comment: 05/16/18 11:29 Consult to Wound Care [CONS] Routine Reason for Consult: sacral decubitus ulcer stage 1 Call Completed: No - Constitutional Vitals: Temp Pulse Resp BP Pulse Ox 98.4 F 103 14 124/78 95 05/17/18 11:02 05/17/18 11:02 05/17/18 11:02 05/17/18 11:02 05/17/18 11:02 - Attending Attestation I examined this patient and my medical decision-making was reviewed with the Resident Physician Dr Cordoba. I agree with the documented findings, disposition and treatment plan as described except to the extent set forth below. Ms Sims is admitted with sepsis and back pain 2/2 suspected discitis, as well as SC osteomyelitis, and source found to be MSSA bacteremia (unclear original source) awake, feeling well. no fevers or chills. no pain. awaiting placement gen- alert, awake,appears stated age cv- reg rate and rhythm, no le edema lungs- normal resp effort, no wheezing or rhonchi neuro- AAOx3, no focal deficits 1. Sepsis from MSSA - resolved. 2. MSSA bacteremia - blood cx 05/13/18 negative thus far. ID outpt scheduled, cont cefazolin, will need weekly CBC, BUN/Cr, ESR, CRP on Mondays for outpatient monitoring upon dc 3. R SC joint infection - s/p aspiration, cont IV abx as above 4. Possible discitis - has been seen by spinal surg this admit, cont IV abx 5. lumbar stenosis and lumbar radiculopathy, cauda equina ruled out by spine surg-PT/OT, fu with spine surg in 6 weeks to assess for response to conservative tx 6. decub ulcer- pressure bandage, wound care, frequent position changes Further diagnoses and plan as noted by resident time spent on dc 45 min
[2018-05-17] MEDS: Sennosides/Docusate Sodium TABLET PO SCH (12:04)
[2018-05-17 15:54] VITALS: BP 132/72
--- NOTE | 2018-05-17 16:00 | Infectious Disease Progress No ---
Date of Encounter: 05/17/18 Time of Encounter: 10:15 - Assessment and Plan (1) MSSA bacteremia Status: Acute 05/07/18 Blood Culture- x2 S. aureus -Sensitive: oxacillin, vancomycin, levo, cipro, daptomycin; Resistance: clindamycin, erythromycin 05/08/18 Blood Culture- x2 S. aureus 05/10/18 Blood Culture- x2 S. aureus 05/13/18 Blood Culture- pending -source not clear -complicated; patient has hardware in bilateral feet from previous surgeries and septic arthritis of the R sternoclavicular joint and maybe right shoulder -exam with no other minor López's Criteria TTE 05/08: LVEF 60%, No valvular vegetations visualized, Mild mitral regurg, Mild-moderate tricuspid regurg GERTRUDE 05/11: LVEF 65%, No vegetations visualized, Mild mitral regurg, Mild-moderate tricuspid regurg, Normal LV and RV Plan: -Continue cefazolin (day 9) 2 grams q8hrs -Duration of treatment at least 6 weeks -Midline cleared for placement prior to d/c as blood cultures without growth for >72 hours -Will plan weekly CBC, BUN/Cr, ESR, CRP on Mondays for outpatient monitoring -Scheduled outpatient follow-up in two weeks (2) Sepsis due to Staphylococcus aureus Status: Resolved Resolved 4 SIRS criteria on admission without associated lactic acidosis or end organ damage -secondary to MSSA bacteremia -source unknown Afebrile, Leukocytosis resolved as WBC 8.5, Normal HR and RR, hemodynamically stable 05/07/18 Culture x2- S. aureus -Sensitive: oxacillin, vancomycin, levo, cipro, daptomycin; Resistance: clindamycin, erythromycin 05/08/18 Culture x2- S. aureus 05/10/18 Culture x2- S. aureus Plan: -Continue cefazolin (day 9) 2g q8H (3) Osteomyelitis Status: Acute On exam, patient has tenderness to palpation of R medial clavicular head with slight limitation of active ROM but mostly normal passive ROM CT chest 05/08: Inflammation centered at the right sternoclavicular joint is favored to represent septic arthritis with osteomyelitis. Etiology likely MSSA given positive blood cultures 05/07, 05/08, 05/10 Arthrocentesis of R SC joint performed, significant for 3 cc purulent fluid; sample not submitted for culture or analysis. Plan: -As above, expected course at least 6 weeks Qualifiers: Osteomyelitis type: unspecified type Osteomyelitis location: unspecified site Qualified Code(s): M86.9 - Osteomyelitis, unspecified (4) Septic joint Status: Acute On exam, pain upon active and passive motion of RUE, slight decreased ROM during active but mostly normal passive, tenderness to palpation of R SC joint. Etiology likely MSSA given positive blood cultures 05/07, 05/08, 05/[address] chest 05/08: Inflammation centered at the right sternoclavicular joint is favored to represent septic arthritis with osteomyelitis. Aspiration of R SC joint- volume of 3cc purulent, sample not sent for cytology and culture Plan: -As above -monitor labs and for drug toxicity Qualifiers: Septic arthritis location: shoulder Septic arthritis organism: staphylococcal Laterality: right Qualified Code(s): M00.011 - Staphylococcal arthritis, right shoulder (5) Urinary incontinence Status: Resolved Secondary to cauda equina syndrome; no subsequent episodes -spine surgery following Qualifiers: Urinary Incontinence type: unspecified incontinence Qualified Code(s): R32 - Unspecified urinary incontinence (6) Diabetes mellitus Status: Chronic Glucose 182. -Management per primary team. Qualifiers: Diabetes mellitus type: type 2 Diabetes mellitus jail insulin use: without rat exterminator use Diabetes mellitus complication status: with hyperglycemia Qualified Code(s): E11.65 - Type 2 diabetes mellitus with hyperglycemia (7) Hypertension Status: Chronic BP 144/76, stable. -Management per primary team. Qualifiers: Hypertension type: essential hypertension Qualified Code(s): I10 - Essential (primary) hypertension (8) Cauda equina syndrome Status: Ruled-out No acute changes. -Surgery consulted, conservative management with PT and pharmacotherapy of analgesics, muscle relaxants (9) Spondylolisthesis at L4-L5 level Status: Chronic No acute changes. -Surgery consulted, conservative management with PT and pharmacotherapy of analgesics, muscle relaxants (10) Decubital ulcer Status: Acute Mild erythema with callus in sacral area, no bleeding ulcers. Emphasized to patient frequent position changes. -Pressure bandage in place -Management per primary team Qualifiers: Pressure injury location: sacral region Pressure injury stage: stage 1 Qualified Code(s): L89.151 - Pressure ulcer of sacral region, stage 1 - Subjective Interval history: Patient seen and examined at bedside this morning, in no acute distress. She admits improved strength in RUE and decreased pain of the R medial clavicular head with some tenderness to palpation and active motion however she is able to lift her R arm almost above her head. The patient also admits the lower back and leg pain is much better controlled. She endorses the swelling in her feet has mo stly diminished but denies fever, fatigue, headache, chest pain, cough, dyspnea, nausea, vomiting, diarrhea, abdominal pain, vaginal discharge, rashes. Infect Dis PN-Objective Data - Labs CBC & Chem 7: 05/17/18 02:45 05/17/18 02:45 Labs: Laboratory Results - last 24 hr 05/17/18 05/17/18 02:45 02:45 WBC 8.5 RBC 3.07 L Hgb 8.1 L Hct 25.8 L MCV 84.0 MCH 26.4 L MCHC 31.4 L RDW 14.1 Plt Count 512 H MPV 9.2 L Sodium 137 Potassium 3.6 Chloride 98 Carbon Dioxide 30 H BUN 7 L Creatinine 0.49 L Est GFR ( Amer) > 60 Est GFR (Non-Af Amer) > 60 BUN/Creatinine Ratio 14 Glucose 182 H Calculated Osmolality 287 Calcium 9.3 Cultures: Cultures 05/13/18 04:03 Blood Culture - Preliminary Peripheral Venipuncture Culture is incubating and being continuously monitored for growth. Final report to follow. 05/13/18 03:55 Blood Culture - Preliminary Peripheral Venipuncture Culture is incubating and being continuously monitored for growth. Final report to follow. 05/10/18 04:50 Blood Culture - Final Peripheral Venipuncture Staphylococcus aureus 05/10/18 04:57 Blood Culture - Final Peripheral Venipuncture Staphylococcus aureus 05/07/18 16:08 Blood Culture - Final Peripheral Venipuncture Staphylococcus aureus 05/07/18 16:13 Blood Culture - Final Peripheral Venipuncture Staphylococcus aureus 05/08/18 09:10 Blood Culture - Final Peripheral Venipuncture Staphylococcus aureus 05/08/18 09:16 Blood Culture - Final Peripheral Venipuncture Staphylococcus aureus Serology 05/15/18 05/08/18 05/08/18 Range/Units 08:43 06:52 06:52 Urine Color (Yellow) Urine Clarity (Clear) Urine pH (5.0-8.0) pH Units Ur Specific [place] (1.010-1.025) Urine Protein (Neg-Trace) mg/dL Urine Glucose (UA) (Normal) mg/dL Urine Ketones (Negative) mg/dL Urine Blood (Negative) Urine Nitrite (Negative) Urine Bilirubin (Negative) Urine Urobilinogen (Normal) mg/dL Ur Leukocyte Esterase (Negative) Urine Microscopic RBC (0-3) per hpf Urine Microscopic WBC (0-3) per hpf Ur Squamous Epith Cells (None-Few) per lpf Urine Bacteria (None-Few) per hpf Hyaline Casts (None-Few) per lpf Ur Culture Indicated? (NO) Urine Osmolality 310 (300-1090) mOsm/kg Urine Sodium 58.6 mEq/L Urine Chloride 74 mEq/L Stool Occult Blood Negative (Negative) A. baumannii (PCR) (Not Detect) Sanaz albicans (PCR) (Not Detect) C. glabrata (PCR) (Not Detect) C. krusei (PCR) (Not Detect) C. parapsilosis (PCR) (Not Detect) C. tropicalis (PCR) (Not Detect) Enterobacteriac sp PCR (Not Detect) E. cloacae complex PCR (Not Detect) Enterococcus sp PCR (Not Detect) E. coli (PCR) (Not Detect) H. influenzae (PCR) (Not Detect) Klebsiella oxytoca PCR (Not Detect) Klebsiella pneumoniae (Not Detect) List. monocytogenes PCR (Not Detect) N. meningitidis (PCR) (Not Detect) Proteus species (PCR) (Not Detect) Serratia marcescens PCR (Not Detect) Staphylococcus sp PCR (Not Detect) Staph aureus (PCR) (Not Detect) mecA-Methicil Res Gene (Not Detect) Streptococcus sp PCR (Not Detect) Group A Strep DNA (Not Detect) Group B Strep (PCR) (Not Detect) Strep pneumoniae (PCR) (Not Detect) P. aeruginosa (PCR) (Not Detect) Isela/B-Vanco Res Genes (Not Detect) KPC (blaKPC) Detect PCR (Not Detect) 05/07/18 05/07/18 Range/Units 16:08 11:34 Urine Color Yellow (Yellow) Urine Clarity Clear (Clear) Urine pH 6.0 (5.0-8.0) pH Units Ur Specific [place] 1.030 H (1.010-1.025) Urine Protein 30 H (Neg-Trace) mg/dL Urine Glucose (UA) 500 H (Normal) mg/dL Urine Ketones 40 H (Negative) mg/dL Urine Blood Negative (Negative) Urine Nitrite Negative (Negative) Urine Bilirubin Negative (Negative) Urine Urobilinogen Normal (Normal) mg/dL Ur Leukocyte Esterase Negative (Negative) Urine Microscopic RBC 0-3 (0-3) per hpf Urine Microscopic WBC 5-15 H (0-3) per hpf Ur Squamous Epith Cells Many H (None-Few) per lpf Urine Bacteria None Seen (None-Few) per hpf Hyaline Casts None Seen (None-Few) per lpf Ur Culture Indicated? NO (NO) Urine Osmolality (300-1090) mOsm/kg Urine Sodium mEq/L Urine Chloride mEq/L Stool Occult Blood (Negative) A. baumannii (PCR) Not Detected (Not Detect) Sanaz albicans (PCR) Not Detected (Not Detect) C. glabrata (PCR) Not Detected (Not Detect) C. krusei (PCR) Not Detected (Not Detect) C. parapsilosis (PCR) Not Detected (Not Detect) C. tropicalis (PCR) Not Detected (Not Detect) Enterobacteriac sp PCR Not Detected (Not Detect) E. cloacae complex PCR Not Detected (Not Detect) Enterococcus sp PCR Not Detected (Not Detect) E. coli (PCR) Not Detected (Not Detect) H. influenzae (PCR) Not Detected (Not Detect) Klebsiella oxytoca PCR Not Detected (Not Detect) Klebsiella pneumoniae Not Detected (Not Detect) List. monocytogenes PCR Not Detected (Not Detect) N. meningitidis (PCR) Not Detected (Not Detect) Proteus species (PCR) Not Detected (Not Detect) Serratia marcescens PCR Not Detected (Not Detect) Staphylococcus sp PCR DETECTED A (Not Detect) Staph aureus (PCR) DETECTED A (Not Detect) mecA-Methicil Res Gene Not Detected (Not Detect) Streptococcus sp PCR Not Detected (Not Detect) Group A Strep DNA Not Detected (Not Detect) Group B Strep (PCR) Not Detected (Not Detect) Strep pneumoniae (PCR) Not Detected (Not Detect) P. aeruginosa (PCR) Not Detected (Not Detect) Isela/B-Vanco Res Genes Not Detected (Not Detect) KPC (blaKPC) Detect PCR Not Detected (Not Detect) Exam - Constitutional Vitals: Temp Pulse Resp BP Pulse Ox 98.4 F 108 14 132/72 97 05/17/18 15:53 05/17/18 15:53 05/17/18 15:53 05/17/18 15:53 05/17/18 15:53 Exam: GENERAL: Appears as stated age, in no acute distress HEAD: Normocephalic, atraumatic ENT:PERRL, EOMI, conjunctiva pink, oral mucosa moist, some dental work present, no lesions or dentures RESPIRATORY: CTA purnima, no wheezes, rales, rhonchi CHEST: TENDERNESS OVER THE STERNOCLAVICULAR JOINT, no warmth CARDIAC: RRR, Normal S1 and S2, without murmurs, gallops, or rubs EXTREMITIES: pulses intact purnima, no edema ABDOMEN: soft, BSx4, nontender, no masses MUSCULOSKELETAL: full ROM purnima extremities, R shoulder limited ROM at extremes during active motion but mostly normal with passive, pain with resisted shoulder raise and abduction, edema present at R medial clavicular head, Extremities without clubbing, cyanosis or edema. NEUROLOGIC EXAM:No focal deficits,StrengthRUE - 4/5, LUE 5/5, RLE - 5/5, LLE - 5/5, Sensation intact, symmetric of purnima UE and LE PSYCHIATRIC: Normal mood SKIN: Bandage in place over mildly erythematous area of sacrum, no bleeding lesions.; no appreciable [place] lesions, [place] nodes, splinter hemorrhages Consult Discharge Plan - Plan Instructions: Sepsis (DC) Additional Instructions: Scheduled appointment 05/30/18 @2:05pm with Ammy Kendall CNP Continue IV antibiotics for sepsis. Follow-up as scheduled with infectious disease. Scheduled appointment with wound care for May 22 at 3:30pm. Scheduled appointment with Dr. Bales on June 21 at 8:00am. Referrals: Colby Bales Jr, MD [Partnered Physician] - ([address] Bales) [facility] - Prescriptions: ceFAZolin [Ancef] 2,000 mg IVPB Q8HR 33 Days vial RX: ceFAZolin [Ancef] 1,000 mg IVPB Q8HR 33 Days #2 vial RX: Tramadol HCl [Ultram] 50 mg PO QID PRN 3 Days #12 tab PRN Reason: Pain - Attending Attestation I examined this patient and my medical decision-making was reviewed with the Resident Physician. I agree with the documented findings, disposition and treatment plan as described except to the extent set forth below. Patient seen and examined. Appears to be doing well clinically. Patient denies any chest pain. No shortness of breath. No diarrhea. No urinary symptoms. Chest pain has improved. Physical exam HEENT: Pupils are equal sclera non-icteric Lungs: Good air sounds bilaterally no wheezing Cardiovascular: Regular rate and rhythm no murmur Abdomen: Soft nontender nondistended Labs reviewed micral noted Assessment and plan: 1.MSSA bacteremia complicated with septic emboli to the clavicular sternal joint. TTE and GERTRUDE both negative for vegetation 2.sepsis 3.cauda equina syndrome 4.osteomyelitis of the clavicle 5. Urinary incontinence improved 6. Persistent bacteremia Repeat cultures from May 13 are no growth. PICC line placed today. Continue cefazolin with plan to treat for at least 6 weeks. While on antibiotics me weekly CBC, BMP, ESR and CRP Follow-up with me in clinic in 2 weeks.
== END 2018-05-17 19:05 | DRG 871 ==
LOC: SUATTDRO → 3NENU 10:32 → EMEROOARM 10:32 → SUATTDRO 15:50 → 3NENU 17:30
PROVIDERS: ADMIT Internal Medicine; ATTEND Internal Medicine
PROC: IRFLUID (2018-05-09 12:00)